=== PATIENT | male | born 1960 | race Caucasian/White ===

== ENCOUNTER 2016-11-06 05:46 | Observation (INO) ==
[2016-11-06] MEDS ORDERED: ASPIRIN PO STA (06:11)
--- NOTE | 2016-11-06 06:35 | Diag Imaging Result Doc PS360 ---
EXAM: CHEST-PORTABLE HISTORY: cp TECHNIQUE: Portable upright COMPARISON: 10/10/2016 FINDINGS: The lungs are well expanded. The heart is mildly prominent. The vessels are not distended. No pneumonia. No pleural effusions identified. Mild scoliosis. IMPRESSION: Mildly prominent heart, but otherwise negative exam. Electronically signed by Charbel Green 11/06/2016 6:33 AM
[2016-11-06 06:47] LABS: BASO% 0.3 % (0.0-0.8); EOS# 0.37 X1000 (0.0-0.7); EOS% 6.2 % (0.0-10.0); HEMATOCRIT 37.8 % (42.0-52.0); HEMOGLOBIN 12.9 g/dL (14.0-18.0); IMM GRAN# 0.02 X1000 (0.0-0.04); IMM GRAN% 0.3 % (0.0-0.5); LYMPH# 1.44 X1000 (1.2-3.4); LYMPH% 24.1 % (20.5-51.1); MANUAL DIFF NEEDED? NO; MCH 32.7 PG (27-31); MCHC 34.1 g/dL (33-37); MCV 95.9 FL (81-99); MONO# 0.65 X1000 (0.11-0.59); MONO% 10.9 % (1.7-9.3); MPV 11.2 FL (7.4-10.4); NEUT% 58.2 % (42.2-75.2); PLT 209 X1000 (130-400); RBC 3.94 XMIL (4.7-6.1)
[2016-11-06 06:48] LABS: INR 1.01; PROTIME 10.6 Seconds (9.2-11.7); PTT 24.5 Seconds (22.0-36.0)
[2016-11-06 07:16] LABS: AGAP 14; ALBUMIN 4.3 g/dL (3.5-5.0); ALKALINE PHOSPHATASE 51 U/L (32-122); BUN 14 mg/dL (8-22); CALCIUM 9.2 mg/dL (8.8-10.2); CHLORIDE 105 mmol/L (98-107); CK PROFILE 86 U/L (24-204); COSMO 286; GOT 23 U/L (10-34); GPT 18 U/L (10-44); MAGNESIUM 1.7 mg/dL (1.5-2.7); POTASSIUM 3.8 mmol/L (3.5-5.1); SODIUM 142 mmol/L (136-145); TCO2 23 mmol/L (25-35); TOTAL BILIRUBIN 0.26 mg/dL (0.20-1.00); TOTAL PROTEIN 7.3 g/dL (6.3-8.3)
[2016-11-06 07:38] LABS: URINE CULTURE NEEDED? NO; URINE MICRO REVIEW NEEDED? NO; URINE SOURCE CLEAN CATCH
[2016-11-06 07:55] LABS: BILIRUBIN URINE NEGATIVE (NEGATIVE); BLOOD URINE NEGATIVE (NEGATIVE); COLOR STRAW; GLUCOSE URINE NEGATIVE (NEGATIVE); LEUKOCYTES URINE NEGATIVE (NEGATIVE); NITRITE URINE NEGATIVE (NEGATIVE); PH URINE 6.5; PROTEIN URINE NEGATIVE (NEGATIVE); SP GRAVITY URINE 1.007; TURBIDITY URINE CLEAR (CLEAR); UROBILINOGEN URINE NORMAL (NORMAL)
[2016-11-06 07:57] LABS: UR EPITHELIAL CELLS <10 /HPF (<10); URINE BACTERIA NEGATIVE /HPF; URINE RBC <10 /HPF (<10); URINE WBC <10 /HPF (<10)
[2016-11-06 08:02] LABS: UR AMPHETAMINES QUAL NONE DETECTED (NONE DETECT); UR BARBITUATES QUAL NONE DETECTED (NONE DETECT); UR BENZODIAZEPIN QUAL PRESUMPTIVE POSITIVE (NONE DETECT); UR CANNABINOIDS QUAL PRESUMPTIVE POSITIVE (NONE DETECT); UR COCAINE QUAL NONE DETECTED (NONE DETECT); UR METHADONE QUAL NONE DETECTED (NONE DETECT); UR OPIATES QUAL NONE DETECTED (NONE DETECT); UR OXYCODONE QUAL NONE DETECTED (NONE DETECT); UR PCP QUAL NONE DETECTED (NONE DETECT)
[2016-11-06] MEDS ORDERED: NITROGLYCERIN TOP ONE (09:14)
--- NOTE | 2016-11-06 09:15 | PROVIDER DOCUMENTATION ---
This chart was entered by Carla Johnson Scribe, acting as scribe for Kyle Dill MD. HPI-Chest Pain - General Chief Complaint: Chest Pain Stated Complaint: CHEST PAIN Time Seen by Provider: 11/06/16 06:07 Source: patient Allergies/Adverse Reactions: Patient Allergies Allergy/AdvReac Type Severity Reaction Status Date / Time No Known Allergies Allergy Verified 11/06/16 08:52 Home Medications: Home Medication List Medication Instructions Recorded Confirmed Last Taken Type Carvedilol [Coreg] 6.25 mg PO BID 08/06/12 11/06/16 11/05/16 06:00 History Digoxin 125 mcg PO DAILY 08/06/12 11/06/16 11/05/16 06:00 History ENALApril [Vasotec] 10 mg PO DAILY 08/06/12 11/06/16 11/05/16 06:00 History Furosemide [Lasix] 40 mg PO DAILY 08/06/12 11/06/16 11/06/16 06:00 History Spironolactone 25 mg PO DAILY 10/05/14 11/06/16 11/06/16 06:00 History Nitroglycerin Sl [Nitroglycerin] 0.4 mg SL PRN PRN 06/06/15 10/10/16 09/03/16 History Chlordiazepoxide [Librium] 5 mg PO BID #10 capsule 10/10/15 10/10/16 10/30/16 Rx Doxycycline [Vibramycin] 100 mg PO DAILY 11/06/16 11/06/16 11/06/16 06:00 History Methylprednisolone [Medrol Dosepak] 4 mg PO DIRECTED 11/06/16 11/06/16 06:00 History Simvastatin 20 mg PO DAILY 11/06/16 11/06/16 11/05/16 06:00 History - History of Present Illness-CP Nature of Presenting Problem: Pt is a 56 year old male who came to the ED from assisted with a cc of chest pain starting this morning at 5:00. Pt reports he has a hx of cardiac problems. Denies n/v. Location: reports: central Chest Pain Radiation: reports: no radiation Quality of Pain: reports: sharp Severity in ED: moderate Onset/Duration: 1-3 hours ago Timing: still present Context/Activities at Onset: reports: none Modifying Factors: improves with: nothing Nitro Today/Relief: no nitro taken today Aspirin Treatment Today: no aspirin today Similar Symptoms Previously?: Yes Recently Seen Here or By Another Healthcare Provider: No Review of Systems - Adult - REVIEW OF SYSTEMS - ADULT Constitutional: denies: chills, fever Eyes: reports: no symptoms reported Ears, Nose, Mouth & Throat: denies: ear pain, throat swelling Cardiovascular: reports: chest pain. denies: heart murmur, orthopnea Respiratory: denies: cough, shortness of breath Gastrointestinal: denies: nausea, vomiting Genitourinary: reports: no symptoms reported Musculoskeletal: reports: no symptoms reported Integumentary: reports: no symptoms reported Neurological: reports: no symptoms reported Psychiatric: reports: no symptoms reported Endocrine: reports: no symptoms reported Hematologic/Lymphatic: reports: no symptoms reported Allergic/Immunologic: reports: no symptoms reported All Other Systems: Reviewed and Negative Past History - Adult - PAST MEDICAL HISTORY-ADULT Review of Records: reports: Old Records Reviewed, Nursing Assessment Review Major Childhood Illnesses: reports: denies history Cardiovascular: reports: CAD, CHF, HTN, hyperlipidemia Respiratory: reports: COPD Gastrointestinal: reports: pancreatitis Obstetrical/Gynecological: reports: denies history Genitourinary: reports: denies history Musculoskeletal: reports: arthritis, other fractures (pt reports old rib fx) Neurological: reports: denies history Psychiatric: reports: bipolar, other ([place] abuse) Endocrine/Immune: reports: denies history Other Conditions: reports: denies history - PRIOR SURGERIES/PROCEDURES Surgical/Procedure History: reports: orthopedic (extremity) (left ankle), other (jaw surgery) - PRIOR HOSPITALIZATIONS Prior Hospitalizations: reports: none - IMMUNIZATION STATUS Childhood Immunizations: See Nurse Assessment Flu Vaccine: See Nurse Assessment - FAMILY HISTORY Family History: reviewed, not pertinent Physical Exam-General - PHYSICAL EXAM-ADULT Initial Vital Signs Reviewed: Yes - CONSTITUTIONAL General Appearance: appears well, alert, no apparent distress - EYES Eyes: PERRL/EOMI, pink conjunctivae - HEAD, EARS, NOSE, MOUTH & THROAT HENMT: normocephalic/atraumatic, moist mucous membranes - NECK Neck: non-tender, full range of motion - RESPIRATORY Respiratory: chest non-tender, normal breath sounds - CARDIOVASCULAR Cardiovascular: normal peripheral pulses, regular rate, rhythm - GASTROINTESTINAL (ABDOMEN) Abdominal Exam: normal bowel sounds, non tender, soft - MUSCULOSKELETAL Back Exam: normal inspection, no CVA tenderness Extremity: non-tender - SKIN Integumentary: normal color, normal turgor - NEUROLOGIC Neurologic: grossly normal - PSYCHIATRIC Psych/Mental Status: normal mood/affect, normal thought content, normal thought process, oriented x 3 Progress - PLAN OF CARE/RESULTS Progress/Plan/Lab Results: Vital Signs - 8 hr 11/06/16 06:17 11/06/16 09:07 Temperature 98.8 F Pulse Rate 92 H 92 H Respiratory Rate 18 21 Blood Pressure 117/73 119/81 O2 Sat by Pulse Oximetry 97 99 Laboratory Results - last 24 hr 11/06/16 11/06/16 11/06/16 06:09 06:09 06:09 WBC 5.98 RBC 3.94 L Hgb 12.9 L Hct 37.8 L MCV 95.9 MCH 32.7 H MCHC 34.1 RDW Std Deviation 13.1 Plt Count 209 MPV 11.2 H Immature Gran % (Auto) 0.3 Neut % (Auto) 58.2 Lymph % (Auto) 24.1 Douglas % (Auto) 10.9 H Eos % (Auto) 6.2 Baso % (Auto) 0.3 Immature Gran # (Auto) 0.02 Neut # (Auto) 3.48 Lymph # (Auto) 1.44 Douglas # (Auto) 0.65 H Eos # (Auto) 0.37 Baso # (Auto) 0.02 PT INR PTT (Actin FS) D-Dimer 0.21 Sodium 142 Potassium 3.8 Chloride 105 Carbon Dioxide 23 L Anion Gap 14 BUN 14 Creatinine 0.7 Estimated GFR/1.73 m2 > 60 BUN/Creatinine Ratio 20 Glucose 137 H Calculated Osmolality 286 Calcium 9.2 Magnesium 1.7 Total Bilirubin 0.26 AST 23 ALT 18 Alkaline Phosphatase 51 Creatine Kinase 86 Troponin T [id number]-Xgfklroutgw Pept Total Protein 7.3 Albumin 4.3 Globulin 3.0 Albumin/Globulin Ratio 1.4 Urine Source Urine Color Urine Turbidity Urine pH Ur Specific [place] Urine Protein Ur Glucose (Stick) Ur Ketones (Stick) Urine Blood Urine Nitrite Urine Bilirubin Urobilinogen Dipstick Urine Leukocytes Urine WBC (Auto) Urine RBC (Auto) U Epithel Cells (Auto) Urine Bacteria (Auto) Urine Opiates Screen Ur Oxycodone Screen Ur Methadone, Qual Ur Barbiturates Screen Ur Phencyclidine Scrn Ur Amphetamines Screen U Benzodiazepines Scrn Urine Cocaine Screen U Cannabinoids Screen 11/06/16 11/06/16 11/06/16 06:09 06:09 06:09 WBC RBC Hgb Hct MCV MCH MCHC RDW Std Deviation Plt Count MPV Immature Gran % (Auto) Neut % (Auto) Lymph % (Auto) Douglas % (Auto) Eos % (Auto) Baso % (Auto) Immature Gran # (Auto) Neut # (Auto) Lymph # (Auto) Douglas # (Auto) Eos # (Auto) Baso # (Auto) PT 10.6 INR 1.01 PTT (Actin FS) 24.5 D-Dimer Sodium Potassium Chloride Carbon Dioxide Anion Gap BUN Creatinine Estimated GFR/1.73 m2 BUN/Creatinine Ratio Glucose Calculated Osmolality Calcium Magnesium Total Bilirubin AST ALT Alkaline Phosphatase Creatine Kinase Troponin T < 0.010 [id number]-Unryugyzaez Pept 5709 H Total Protein Albumin Globulin Albumin/Globulin Ratio Urine Source Urine Color Urine Turbidity Urine pH Ur Specific [place] Urine Protein Ur Glucose (Stick) Ur Ketones (Stick) Urine Blood Urine Nitrite Urine Bilirubin Urobilinogen Dipstick Urine Leukocytes Urine WBC (Auto) Urine RBC (Auto) U Epithel Cells (Auto) Urine Bacteria (Auto) Urine Opiates Screen Ur Oxycodone Screen Ur Methadone, Qual Ur Barbiturates Screen Ur Phencyclidine Scrn Ur Amphetamines Screen U Benzodiazepines Scrn Urine Cocaine Screen U Cannabinoids Screen 11/06/16 11/06/16 07:32 07:32 WBC RBC Hgb Hct MCV MCH MCHC RDW Std Deviation Plt Count MPV Immature Gran % (Auto) Neut % (Auto) Lymph % (Auto) Douglas % (Auto) Eos % (Auto) Baso % (Auto) Immature Gran # (Auto) Neut # (Auto) Lymph # (Auto) Douglas # (Auto) Eos # (Auto) Baso # (Auto) PT INR PTT (Actin FS) D-Dimer Sodium Potassium Chloride Carbon Dioxide Anion Gap BUN Creatinine Estimated GFR/1.73 m2 BUN/Creatinine Ratio Glucose Calculated Osmolality Calcium Magnesium Total Bilirubin AST ALT Alkaline Phosphatase Creatine Kinase Troponin T Dgl-G-Kgfsdcubbls Pept Total Protein Albumin Globulin Albumin/Globulin Ratio Urine Source CLEAN CATCH Urine Color STRAW Urine Turbidity CLEAR Urine pH 6.5 Ur Specific [place] 1.007 Urine Protein NEGATIVE Ur Glucose (Stick) NEGATIVE Ur Ketones (Stick) NEGATIVE Urine Blood NEGATIVE Urine Nitrite NEGATIVE Urine Bilirubin NEGATIVE Urobilinogen Dipstick NORMAL Urine Leukocytes NEGATIVE Urine WBC (Auto) <10 Urine RBC (Auto) <10 U Epithel Cells (Auto) <10 Urine Bacteria (Auto) NEGATIVE Urine Opiates Screen NONE DETECTED Ur Oxycodone Screen NONE DETECTED Ur Methadone, Qual NONE DETECTED Ur Barbiturates Screen NONE DETECTED Ur Phencyclidine Scrn NONE DETECTED Ur Amphetamines Screen NONE DETECTED U Benzodiazepines Scrn PRESUMPTIVE POSITIVE A Urine Cocaine Screen NONE DETECTED U Cannabinoids Screen PRESUMPTIVE POSITIVE A Orders Category Date Time Status Cardiac Monitoring DIRECTED Care 11/06/16 06:11 Active Oxygen Therapy- ED Nursing DIRECTED Care 11/06/16 06:11 Active Saline Loc NOW Care 11/06/16 06:11 Active CHEST-PORTABLE [RAD] Stat Exams 11/06/16 06:22 Completed CBC WITH ELECTRONIC DIFF [HEME] Stat Lab 11/06/16 06:09 Completed CK PROFILE [SP CHEM] Stat Lab 11/06/16 06:09 Completed CK PROFILE [SP CHEM] Stat Lab 11/06/16 08:40 Received COMPREHENSIVE METABOLIC PANEL [CHEM] Stat Lab 11/06/16 06:09 Completed D-DIMER [CHEM] Stat Lab 11/06/16 06:09 Completed MAGNESIUM [CHEM] Stat Lab 11/06/16 06:09 Completed PRO B-NATRIURETIC PEPTIDE Stat Lab 11/06/16 06:09 Completed PROTIME WITH INR [COAG] Stat Lab 11/06/16 06:09 Completed PTT [COAG] Stat Lab 11/06/16 06:09 Completed TROPONIN T Stat Lab 11/06/16 06:09 Completed TROPONIN T Stat Lab 11/06/16 08:40 Received URINALYSIS W/POSS RFLX CULT-1 [URINALYSIS] Stat Lab 11/06/16 07:32 Completed URINE DRUG SCREEN Stat Lab 11/06/16 07:32 Completed Aspirin Med 11/06/16 06:11 Discontinued 325 mg PO STAT STA Result Diagrams: 11/06/16 06:09 11/06/16 06:09 - REASSESSMENT Reassessment #1 Time Reassessed: 09:13 Status: unchanged (Pt still reports 6-7/10 pain. Will admit.) - EKG 1 Time of EKG reading by physician:: 05:52 (\) EKG Read and Signed by:: Kyle Dill EKG Interpretation (*Must complete 3 of following elements*): Abnormal Rate: 91 Rhythm: NSR QRS: LBB 2 Time of EKG reading by physician:: 08:33 EKG Read and Signed by:: Kyle Dill EKG Interpretation (*Must complete 3 of following elements*): Abnormal Rate: 91 (left ventricular hypertrophy w QRS wudebubg abd repolarization abnormality) Rhythm: NSR - CONSULTS/PCP/HOSPITALIST Notification #1 *Consult/PCP/Hospitalist*: Hospitalist Time Discussed: 09:14 Consult Disposition: Will see in ED, Admit Departure - Departure Date of Disposition Decision: 11/06/16 Time of Disposition Decision: 09:15 DIAGNOSIS: Chest pain, CHF (congestive heart failure) Disposition: ADMITTED INPATIENT 09 Certified Medical Emergency: Emergent Condition: Stable Referrals and Follow-Ups: None,PCP [Primary Care Provider] - - Critical Care Note This patient required my direct & personal management of CC.: No Attestation - Physician/ MARY Attestation Patient care was provided by Advanced Practice Provider:: No The physician spent face to face time with patient:: Yes Advanced Practice Provider documentation review:: Supervising physician onsite and consulted in the evaluation and care of this patient. The physician did have a face to face encounter with the patient. This chart was documented by the indicated scribe, (Carla Johnson Scribe) and accurately reflects the services I performed and decisions made by me, Kyle Dill MD, as attested by the provider's signature.
--- NOTE | 2016-11-06 10:17 | EKG Report ---
Test Performed on : 11/06/2016 08:33:06 AM Test Reason : ED. Not ordered in [place] Blood Pressure : / mmHG Vent. Rate : 091 BPM Atrial Rate : 091 BPM P-R Int : 170 ms QRS Dur : 170 ms QT Int : 448 ms P-R-T Axes : 050 026 147 degrees QTc Int : 551 ms Normal sinus rhythm. Left ventricular hypertrophy with QRS widening and repolarization abnormality Abnormal ECG When compared with ECG of 06-NOV-2016 05:52, (Unconfirmed) Left bundle branch block is no longer present Unconfirmed Result
--- NOTE | 2016-11-06 10:17 | EKG Report ---
Test Performed on : 11/06/2016 05:52:44 AM Test Reason : ED. Not ordered in [place] Blood Pressure : / mmHG Vent. Rate : 091 BPM Atrial Rate : 091 BPM P-R Int : 194 ms QRS Dur : 164 ms QT Int : 424 ms P-R-T Axes : 061 008 151 degrees QTc Int : 521 ms Normal sinus rhythm. Left bundle branch block Abnormal ECG When compared with ECG of 28-SEP-2015 06:52, QRS axis shifted right T wave amplitude has increased in Anterior leads Unconfirmed Result
[2016-11-06] MEDS ORDERED: ZOFRAN IV PRN (11:18)
[2016-11-06] MEDS: DUONEB (A & A) INH PRN ×3 (13:14→19:28)
[2016-11-06] MEDS: LOVENOX SUBQ SCH (13:26)
[2016-11-06] MEDS: TYLENOL PO PRN ×2 (13:28→21:43)
[2016-11-06] MEDS: ALDACTONE PO SCH (13:55)
[2016-11-06] MEDS: DOXYCYCLINE PO SCH (13:56)
[2016-11-06] MEDS: COREG PO SCH ×2 (13:56→21:43)
[2016-11-06] MEDS: LANOXIN PO SCH (13:57)
[2016-11-06] MEDS: LASIX PO SCH (13:58)
[2016-11-06] MEDS: PRILOSEC PO SCH (13:58)
[2016-11-06] MEDS: VASOTEC PO SCH (13:58)
[2016-11-06] MEDS: NITROGLYCERIN TOP SCH ×2 (17:01→21:44)
--- NOTE | 2016-11-06 17:48 | CONSULTATION ---
DATE OF CONSULTATION: 11/06/2016 INDICATION: Chest pain. HISTORY OF PRESENT ILLNESS: Mr. Colunga is a 56-year-old white male with a history of a nonischemic cardiomyopathy likely alcohol related who continues to drink and smoke. He presented for evaluation of chest pain. Patient is currently incarcerated and has been so for the last 13 days. He was apparently eating this morning and shortly after eating he began to experience a burning type chest discomfort with no radiation, no nausea, vomiting, diaphoresis. No worsening shortness of breath. He asked for some nitroglycerin. He was apparently administered an EKG in [facility] and they subsequently sent him to the ER for further evaluations. He has not had any recurrence of his chest discomfort since being here and his initial set of cardiac enzymes has been unremarkable. He reports compliance with his medications and reports they have been administered while he has been in [facility]. He has no other complaints. PAST MEDICAL HISTORY: Significant for. 1. Nonobstructive coronary disease by last cardiac catheterization. 2. Nonischemic cardiomyopathy. His last echocardiogram was in 2016 and showed a markedly reduced EF of 15-20. Moderate mitral regurgitation. 3. Alcoholism, continuing to drink 6+ beers per day. 4. Continued tobacco abuse. 5. Hypertension. 6. Hyperlipidemia. 7. History of nonsustained ventricular tachycardia. 8. COPD. 9. Chronic left bundle branch block. 10. Hyperlipidemia. SOCIAL HISTORY: Again continued alcohol abuse with 6+ beers per day. Continued tobacco abuse. FAMILY HISTORY: Significant for hypertension. REVIEW OF SYSTEMS: A 10 system review of systems is negative except for those things mentioned in HPI. PHYSICAL EXAMINATION: Vital signs: Patient is afebrile. Heart rate is 74, blood pressure 116/83. General: No acute distress. HEENT: Oropharynx is moist. Poor dentition. Eye examination shows pink conjunctivae. White sclerae. Neck: Examination shows no obvious thyromegaly, thyroid tenderness. Cardiovascular: He is in regular rate and rhythm. No murmurs. He has no lower extremity edema. He has no obvious S3. His JVP appears to be normal. Chest exam: Relatively clear to auscultation bilaterally. No increased work of breathing. Abdomen: Soft, nontender, nondistended. He has no obvious organomegaly. Skin Exam: Warm and dry throughout without any rashes. Neurological: Moving all extremities well. Cranial nerves 2-12 are intact without any sensation deficits. Psychiatric: Alert and oriented, pleasant, normal mood and affect. PERTINENT DATA: Chest x-ray shows a mildly prominent heart but otherwise an unremarkable examination. His EKG shows sinus rhythm, left bundle branch block. His laboratory data demonstrates white count of 5.98, hematocrit 37.8, platelet count of 209,000. His INR is 1.01, D- dimer is normal. Sodium 142, potassium 3.8, BUN 14, creatinine 0.7. His proBNP is 5709. His troponin is less than 0.010. ASSESSMENT: 1. Chest pain. 2. Systolic heart failure presumably controlled per patient's symptoms. PLAN: We will trend his cardiac enzymes overnight. His EKG is unremarkable from previous. If his enzymes remain normal then we will likely allow discharge in the morning with an expedited outpatient stress in the next 72 hours. cc: Dontrell Dickinson MD
--- NOTE | 2016-11-06 18:47 | ECHO REPORT ---
ORDER DATE: 11/06/2016 INDICATION: Chest pain, coronary disease, CHF, hypertension, hyperlipidemia. FINDINGS: 1. Right atrium is mildly enlarged at 4.6 cm. 2. Moderate tricuspid regurgitation. RV pressure of 67 suggesting pulmonary hypertension. 3. Right ventricle does appear to be somewhat enlarged with mild reduction in RV systolic function. 4. No significant pulmonic insufficiency. 5. Moderate to severe left atrial enlargement with dimension of 5.2 cm. 6. No mitral valve prolapse. Mild mitral regurgitation with apical tenting of the mitral leaflets. 7. Severe dilatation of the left ventricle with an end-diastolic dimension of 8.4. Normal wall thicknesses with a posterior and interventricular septal thickness of 0.5 cm each. Severely reduced LV systolic function with an estimated EF of 15% and global hypokinesis. 8. Aortic valve opens well, it is trileaflet. No evidence of stenosis or insufficiency. 9. Aorta appears normal on visualized segments. 10. No pericardial effusion seen. cc: Dontrell Dickinson MD
[2016-11-06] MEDS ORDERED: ZOCOR PO SCH (21:00)
[2016-11-06] MEDS ORDERED: HEPARIN SUBQ SCH (21:00)
[2016-11-06] MEDS: MORPHINE IV PRN (21:44)
[2016-11-07] MEDS: TYLENOL PO PRN ×2 (03:50→11:39)
[2016-11-07] MEDS: MORPHINE IV PRN (03:50)
[2016-11-07] MEDS: NITROGLYCERIN TOP SCH ×2 (03:51→10:16)
[2016-11-07 07:17] LABS: MANUAL DIFF NEEDED? NO
[2016-11-07 07:25] LABS: BASO% 1.1 % (0.0-0.8); EOS# 0.12 X1000 (0.0-0.7); EOS% 2.2 % (0.0-10.0); HEMATOCRIT 36.6 % (42.0-52.0); HEMOGLOBIN 12.4 g/dL (14.0-18.0); LYMPH# 1.98 X1000 (1.2-3.4); LYMPH% 35.5 % (20.5-51.1); MCH 32.8 PG (27-31); MCHC 33.9 g/dL (33-37); MCV 96.8 FL (81-99); MONO# 0.57 X1000 (0.11-0.59); MONO% 10.2 % (1.7-9.3); MPV 10.2 FL (7.4-10.4); PLT 255 X1000 (130-400); RBC 3.78 XMIL (4.7-6.1)
[2016-11-07 07:37] LABS: AGAP 12; BUN 13 mg/dL (8-22); CALCIUM 8.4 mg/dL (8.8-10.2); CHLORIDE 99 mmol/L (98-107); COSMO 271; DIGOXIN 0.7 ng/mL (0.9-2.0); HDL 39 mg/dL (35-55); LDL 58 mg/dL; POTASSIUM 3.5 mmol/L (3.5-5.1); SODIUM 136 mmol/L (136-145); TCO2 25 mmol/L (25-35); TRIGLYCERIDES 126 mg/dL (39-160); VLDL 25 mg/dL
[2016-11-07] MEDS: PRILOSEC PO SCH (07:50)
[2016-11-07] MEDS: DUONEB (A & A) INH PRN (08:08)
[2016-11-07] MEDS ORDERED: ASPIRIN PO SCH (09:00)
--- NOTE | 2016-11-07 09:58 | HISTORY AND PHYSICAL ---
PRIMARY CARE PHYSICIAN: None. BAKER HEAD: Dr. Urias. CHIEF COMPLAINT: Chest heaviness. HISTORY OF PRESENT ILLNESS: Mr. Colunga is a 56-year-old, male who carries a past medical history of chronic systolic heart failure with an EF of 15% back in August. Ischemic cardiomyopathy, COPD, hypertension, coronary artery disease, pulmonary hypertension, alcohol abuse, tobacco abuse, but he has not had in 13 days since being incarcerated, GERD, and recent either poison oak or poison mauro that he was put on doxycycline for while he has been incarcerated, various stages of healing on the bilateral upper extremities. He presented to the ED after stating he woke up around 4:30 a.m., went to the restroom and when he returned to his bed he "felt chest heaviness." His felt like it was pounding. There was some slight dizziness. There was no associated shortness of breath, no nausea, no vomiting , no diaphoresis. The only thing that made his pain better was lying completely still. He rated his chest pain 10/10, and after nitroglycerin 6/10, and after nitroglycerin without movement 0/ 10. Two sets of cardiac enzymes have been negative. Chest x-ray showed mildly prominent heart but otherwise negative exam. The first EKG showed normal sinus rhythm with left bundle branch block. The patient is being admitted to the Tele floor with a cardiology consult. PAST MEDICAL HISTORY: 1. Chronic systolic heart failure with an EF of 15%-20% in August,. 2. Ischemic cardiomyopathy. 3. COPD. 4. Hypertension. 5. Coronary artery disease. 6. Pulmonary hypertension. 7. Alcohol abuse. The patient states that he does drink beer; however, he has not had a drink in 13 days since being incarcerated. 8. Tobacco abuse. Patient has not been smoking since he has been incarcerated in 13 days. 9. GERD. PAST SURGICAL HISTORY: 1. ORIF of the right ulnar Jul, 2015. 2. Cholecystectomy. FAMILY HISTORY: Coronary artery disease in mother and father. SOCIAL HISTORY: The patient states that he still smokes, but he has cut back. He was smoking a pack of cigarettes per day. He still is drinking a 6 pack per day. Again, he has not smoked or drank in 13 days ago. He does smoke marijuana. His tox screen was positive for cannabis and benzodiazepines. The patient is living with 2 roommates; one who he says is a schizophrenic and 1 who is on hospice. ALLERGIES: No known drug allergies. HOME MEDICATIONS: 1. Coreg 6.25 mg p.o. b.i.d. 2. Librium 5 mg p.o. b.i.d. 3. Digoxin 25 mcg p.o. daily. 4. Doxycycline 100 mg p.o. daily. 5. Vasotec 10 mg p.o. daily. 6. Lasix 40 mg p.o. daily. 7. Medrol Dosepak. 8. Nitroglycerin 0.4 mg sublingual p.r.n. 9. Simvastatin 20 mg p.o. daily. 10. aldactone 25 mg p.o. daily. REVIEW OF SYSTEMS: Completely negative except for as mentioned in HPI. The patient denies any headache or fever, no dysuria, no hematuria. No bright red or dark tarry stools. LABORATORY DATA: White count 5, hemoglobin 12, hematocrit 37, platelet count 209. Chemistry sodium 142, potassium 3.8, BUN 14, creatinine 0.7 blood glucose was 137, magnesium was 1.7. Two sets of troponins were less than 0.010. ProBNP 57. Urinalysis was negative. Toxicology screen was positive for benzos and cannabis. Chest x-ray showed mildly prominent heart , vessels were not distended. No pneumonia no pleural effusions. Mild sclerosis. PHYSICAL EXAMINATION: VITAL SIGNS: Temperature 98.8 degrees, heart rate 92, respirations 21, blood pressure 119/81. O2 is 99% on room air. GENERAL: Mr. Colunga is a 56-year-old male sitting up in bed, in no acute distress. HEENT: Atraumatic, normocephalic. PERRLA. NECK: Supple. Trachea midline. CV: S1-S2 appreciated. The patient does have a very mild apical systolic murmur. PULMONARY: Bilateral breath sounds encapsulated. No rales, rhonchi or wheezes. Currently on room air. Good O2 saturations. GI: Was soft, nontender, nondistended. Positive bowel sounds 4 quads. EXTREMITIES: No pedal edema noted. 2+ pedal pulses. SKIN: Was warm. He did have on bilateral upper extremities various stages of healing rash, he said was either from poison oak or poison mauro. ASSESSMENT AND PLAN: 1. Chest pain rule out myocardial infarction. Two sets of cardiac enzymes have been negative. We will check a 3rd. Patient placed on nitropaste. Resume his home medications. We will do a cardiac consult. Recheck an echocardiogram. Repeat an EKG in the a.m., check a lipid profile. Check hemoglobin A1c. Healthy heart diet. Continue with aspirin daily. 2. Chronic systolic congestive heart failure. We will continue patient on his p.o. Lasix. His proBNP was slightly elevated. However he does not seem to be in acute heart failure. We will continue his p.o. Lasix. We will check a digoxin level, continue his spironolactone. Check an echo. 3. Poison oak versus poison mauro on bilateral upper extremity cellulitus. He states he was started on doxycycline while incarcerated. We will continue with that. He is in various stages of healing. 4. Chronic obstructive pulmonary disease not in exacerbation with the DuoNebs p.r.n. 5. Ischemic cardiomyopathy. Aware. 6. Hypertension. Continue beta vipin and RADHA. 7. Coronary artery disease. 8. Alcohol abuse. Patient has been without alcohol for 13 days since his incarceration. We will do daily abstinence education. 9. Tobacco abuse. The patient has been without cigarettes for 13 days. We will continue with daily smoking cessation. 10. Gastroesophageal reflux disease. Continue with Proton Pump inhibitors. 11. Deep venous thrombosis prophylaxis. We will continue with Lovenox. 12. Further recommendation to follow physician evaluation and diagnostic data. I have personally performed a face to face diagnostic evaluation on this patient , also I reviewed this patient lab work and, images and vital signs, this patient is coming from [facility], complaining of chest pain, we will get an stress test, cardiology will be on board, 2 sets of troponin negative, I don't think he has an acute coronary syndrme at this moment but based on his history we need to rule it out , Dr Yann Cooper Dictated by DANK Boyer for Yann Gordon MD cc: Yann Gordon MD [facility]
[2016-11-07] MEDS: LASIX PO SCH (10:16)
[2016-11-07] MEDS: COREG PO SCH (10:16)
[2016-11-07] MEDS: DOXYCYCLINE PO SCH (10:16)
[2016-11-07] MEDS: VASOTEC PO SCH (10:16)
[2016-11-07] MEDS: ALDACTONE PO SCH (10:16)
[2016-11-07] MEDS: LANOXIN PO SCH (10:17)
[2016-11-07] MEDS ORDERED: NORCO-5 PO PRN (10:49)
[2016-11-07 11:29] VITALS: BP 107/66
[2016-11-07] MEDS: LOVENOX SUBQ SCH (11:39)
--- NOTE | 2016-11-08 05:18 | DISCHARGE SUMMARY ---
ADMISSION DATE: 11/06/2016 DISCHARGE DATE: 11/07/2016 DISCHARGE DIAGNOSES: 1. Chest pain, myocardial infarction has been ruled out. 2. Chronic congestive heart failure, with an ejection fraction of 15%. 3. Poison oak versus poison mauro on bilateral upper extremities. 4. Chronic obstructive pulmonary disease, not in exacerbation. 5. Ischemic cardiomyopathy, aware. 6. Hypertension. 7. History of coronary artery disease. 8. Alcohol abuse. 9. Tobacco abuse. 10. Drug abuse, with a positive urine toxicology test, positive for cannabinoids and benzodiazepine. CONSULTATIONS: Dr. Dontrell Dickinson, Cardiology Department. HOSPITAL COURSE: A 56-year-old male with a past medical history of congestive heart failure, with an ejection fraction of 15%, ischemic cardiomyopathy, COPD, hypertension, coronary artery disease, alcohol abuse, tobacco abuse, drug abuse, GERD. Presented to the emergency department complaining of chest pain. He states that he felt some heaviness that started that day at 4:30 a.m. Also, he felt palpitations and dizziness. The symptoms were not associated with shortness of breath, nausea, vomiting, or diaphoresis. Intensity, as per the patient, 10 put of 10, and after nitroglycerin, 6/10. This patient was evaluated by Cardiology Department, who did an echocardiogram that showed an ejection fraction again of 15%, cardiac troponins were negative, and no big changes in the EKG. No changes. We will monitored this patient overnight, and today this patient was not complaining of any kind of symptoms. Lab work was stable, so this is why we decided to discharge this patient, with an active followup by Cardiology Department. This patient will have a cardiac a stress test done on Wednesday as an outpatient. All of his medications were adjusted by the Cardiology Department. At the moment of discharge, this patient was in stable medical condition, tolerating p.o., and ambulating. PHYSICAL EXAMINATION: Vital Signs: Temperature 97.4 degrees, pulse 86, respiratory rate 19, blood pressure 107/66, oxygen saturation 100% on room air. HEENT: Head normocephalic. No trauma. PERRLA. Neck: Supple. No JVD. No masses. Central trachea. Chest: Clear to auscultation. No wheezing. No rales. Cardiovascular: RRR. Systolic murmur. Abdomen: Soft, nontender, nondistended. No hepatosplenomegaly. Extremities: Trace lower extremity edema. No clubbing. No cyanosis. Neurological: The patient was alert and oriented x3. No focal deficits. LABORATORY STUDIES: WBC 5.5, hemoglobin 12.4, hematocrit 36.6, platelets 255,000. Sodium 136, potassium 3.5, chloride 99, bicarbonate 25, BUN 13, creatinine 0.7, glucose 83, calcium 8.4. Troponins negative x3. DISCHARGE MEDICATIONS: Nitroglycerin sublingual 0.4 mg sublingual p.r.n. pain, spironolactone 25 mg p.o. daily, simvastatin 20 mg p.o. daily, [place] 5 one tablet p.o. q.6 hours p.r.n. pain, furosemide 40 mg p.o. daily, enalapril 10 mg p.o. daily, doxycycline 100 mg p.o. b.i.d. for 5 days, digoxin 125 mcg p.o. daily, carvedilol 6.25 mg p.o. b.i.d., aspirin 325 mg p.o. daily, and acetaminophen 350 mg p.o. q.6 hours p.r.n. pain. TIME SPENT: Time discharging this patient: 35 minutes. cc: Yann Gordon MD
--- NOTE | 2016-11-09 07:19 | EKG Report ---
Test Performed on : 11/07/2016 07:01:11 AM Test Reason : follow up Blood Pressure : / mmHG Vent. Rate : 068 BPM Atrial Rate : 068 BPM P-R Int : 170 ms QRS Dur : 194 ms QT Int : 462 ms P-R-T Axes : 042 -18 136 degrees QTc Int : 491 ms Normal sinus rhythm. Left bundle branch block Abnormal ECG When compared with ECG of 06-NOV-2016 08:33, (Unconfirmed) No significant change was found Confirmed by Pako Dickinson DO ([id number]) on 11/09/2016 6:22:18 PM
== END 2016-11-07 11:41 | disposition home or self-care (01) ==
LOC: ED 05:46 → 3N 05:46
PROVIDERS: ATTEND Internal Medicine

== ENCOUNTER 2018-06-21 12:39 | Inpatient (IN) ==
[2018-06-21] MEDS ORDERED: ASPIRIN PO ONE (13:20)
[2018-06-21 13:36] LABS: BASO# 0.02 X1000 (0.0-0.2); BASO% 0.2 % (0.0-0.8); EOS# 0.02 X1000 (0.0-0.7); EOS% 0.2 % (0.0-10.0); HEMATOCRIT 36.7 % (42.0-52.0); HEMOGLOBIN 12.8 g/dL (14.0-18.0); IMM GRAN# 0.02 X1000 (0.0-0.04); IMM GRAN% 0.2 % (0.0-0.5); LYMPH# 1.12 X1000 (1.2-3.4); LYMPH% 10.9 % (20.5-51.1); MCHC 34.9 g/dL (33-37); MCV 97.6 FL (81-99); MONO# 0.96 X1000 (0.11-0.59); MONO% 9.3 % (1.7-9.3); MPV 10.4 FL (7.4-10.4); NEUT# 8.13 X1000 (1.4-6.5); NEUT% 79.2 % (42.2-75.2); PLT 207 X1000 (130-400); RBC 3.76 XMIL (4.7-6.1); RDW 13.2 % (11.5-14.5); WBC 10.27 X1000 (4.8-10.8)
[2018-06-21 14:00] LABS: AGAP 18; ALB/GLOB RATIO 1.8; ALBUMIN 4.2 g/dL (3.5-5.0); ALKALINE PHOSPHATASE 64 U/L (32-122); BUN 7 mg/dL (8-22); CALCIUM 9.4 mg/dL (8.8-10.2); CHLORIDE 100 mmol/L (98-107); CK PROFILE 65 U/L (24-204); COSMO 269; CREATININE 0.7 mg/dL (0.7-1.2); ESTIMATED GFR > 60; GLUCOSE 116 mg/dL (70-104); GOT 44 U/L (10-34); GPT 34 U/L (10-44); POTASSIUM 4.3 mmol/L (3.5-5.1); SODIUM 135 mmol/L (136-145); TCO2 17 mmol/L (25-35); TOTAL BILIRUBIN 0.88 mg/dL (0.20-1.00); TOTAL PROTEIN 6.6 g/dL (6.3-8.3)
[2018-06-21 14:09] LABS: INR 1.06; PROTIME 14.7 Seconds (11.0-16.0)
[2018-06-21 14:10] LABS: PTT 37.5 Seconds (22.3-41.8)
--- NOTE | 2018-06-21 14:30 | EKG Report ---
Test Performed on : 06/21/2018 12:56:46 PM Test Reason : SOB Blood Pressure : / mmHG Vent. Rate : 119 BPM Atrial Rate : 119 BPM P-R Int : 168 ms QRS Dur : 202 ms QT Int : 454 ms P-R-T Axes : 070 -07 099 degrees QTc Int : 638 ms Sinus tachycardia. with frequent premature ventricular complexes. Right atrial enlargement Left bundle branch block Abnormal ECG When compared with ECG of 02-DEC-2017 12:06, premature ventricular complexes. are now present Vent. rate has increased BY 52 BPM T wave inversion no longer evident in Inferior leads T wave inversion now evident in Anterior leads T wave inversion less evident in Lateral leads Unconfirmed Result
--- NOTE | 2018-06-21 14:59 | Diag Imaging Result Doc PS360 ---
CT ANGIOGRM PULMONARY ARTERIES - 06/21/2018 INDICATION: sob TECHNIQUE: Axial CT images were obtained after administering intravenous contrast. Coronal MIP images were generated. COMPARISON: 06/06/2015 FINDINGS: There is severe cardiomegaly with prominent dilation of the left ventricle. There is severe patient motion artifact. No definite pulmonary embolism. There are trace bilateral pleural effusions. There is some hazy interstitial pulmonary edema. Airways are fairly clear. Upper abdominal images are unremarkable. There is a displaced fracture through the surgical neck of the right shoulder. There are some old healed left-sided rib fractures similar to prior. IMPRESSION: 1. No definite pulmonary. 2. Dilated cardiomyopathy. Pulmonary edema. Trace pleural effusions. 3. Displaced fracture of the right shoulder surgical neck. This exam was performed using automated exposure control, adjustment of mA or kV according to patient size, and/or use of iterative reconstruction technique Electronically signed by Artie Lyon 06/21/2018 2:56 PM
--- NOTE | 2018-06-21 15:41 | PROVIDER DOCUMENTATION ---
This chart was entered by Any Gil Scribe, acting as scribe for Heath Alatorre MD. HPI-Chest Pain - General Chief Complaint: Shortness of Breath Stated Complaint: SOB, R ARM PAIN Time Seen by Provider: 06/21/18 13:12 Source: patient Allergies/Adverse Reactions: Patient Allergies Allergy/AdvReac Type Severity Reaction Status Date / Time No Known Allergies Allergy Verified 06/10/18 18:49 Home Medications: Home Medication List Medication Instructions Recorded Confirmed Last Taken Type Nitroglycerin Sl [Nitroglycerin] 0.4 mg SL PRN PRN 06/06/15 03/03/17 09/03/16 History Aspirin 325 mg PO DAILY #90 tablet 11/07/16 03/03/17 03/02/17 Rx Carvedilol [Coreg] 6.25 mg PO BID #60 tablet 11/07/16 03/03/17 03/03/17 Rx Digoxin 125 mcg PO DAILY #60 tablet 11/07/16 03/03/17 01/21/17 07:00 Rx ENALApril [Vasotec] 10 mg PO DAILY #30 tablet 11/07/16 03/03/17 03/03/17 Rx Furosemide [Lasix] 40 mg PO DAILY #30 tablet 11/07/16 03/03/17 03/03/17 Rx Spironolactone 25 mg PO DAILY #30 tablet 11/07/16 03/03/17 03/03/17 Rx Pantoprazole [Protonix] 40 mg PO DAILY@0700 #30 tablet 01/15/17 03/03/17 01/21/17 07:00 Rx Gabapentin [Neurontin] 100 mg PO TID #90 cap 01/24/17 03/03/17 02/24/17 Rx Hydrocodone/APAP 10 mg/325 mg 1 each PO Q6H PRN PRN #20 tablet 01/24/17 03/03/17 Unknown Rx [[place]-10] Multivit,Fe,Ca,FA & Min [Thera M 1 ea PO DAILY #120 tab 01/24/17 03/03/17 03/03/17 Rx Plus] Ondansetron [Zofran Odt] 4 mg PO 4XDAY PRN PRN #10 03/03/17 Unknown Rx tab.rapdis Sucralfate [Carafate] 1 gm PO AC + HS #120 tab 08/09/17 Unknown Rx Hydrocodone/APAP 7.5 mg/325 mg 1 ea PO Q6H PRN PRN #20 tab 06/10/18 Unknown Rx [[place]-7.5] Ibuprofen [Motrin] 600 mg PO Q6HR #30 tab 06/10/18 Unknown Rx - History of Present Illness-CP Nature of Presenting Problem: Patient is a 58 year old male who presents to the ED with left side chest pain and shortness of breath that started this morning. Patient fractured right humerus 2 weeks ago after having a fall. History of arrhythmia. Does not report diaphoresis or nausea. Location: reports: other (left side) Chest Pain Radiation: reports: no radiation Quality of Pain: reports: aching Severity in ED: mild Onset/Duration: this morning Timing: still present Context/Activities at Onset: reports: light activity Modifying Factors: improves with: nothing Associated Symptoms: reports: shortness of breath Similar Symptoms Previously?: No Recently Seen Here or By Another Healthcare Provider: No Review of Systems - Adult - REVIEW OF SYSTEMS - ADULT Constitutional: reports: no symptoms reported. denies: chills, fever, fatique Eyes: reports: no symptoms reported Ears, Nose, Mouth & Throat: reports: no symptoms reported Cardiovascular: reports: see HPI, chest pain. denies: heart murmur, palpitations Respiratory: reports: shortness of breath. denies: cough, wheezing Gastrointestinal: reports: no symptoms reported Genitourinary: reports: no symptoms reported Musculoskeletal: reports: other (right shoulder pain). denies: back pain, neck pain Integumentary: reports: no symptoms reported Neurological: reports: no symptoms reported Psychiatric: reports: no symptoms reported Endocrine: reports: no symptoms reported Hematologic/Lymphatic: reports: no symptoms reported Allergic/Immunologic: reports: no symptoms reported All Other Systems: Reviewed and Negative Past History - Adult - PAST MEDICAL HISTORY-ADULT Review of Records: reports: Nursing Assessment Review, Medications Reviewed, Social history reviewed & non-contributory. Major Childhood Illnesses: reports: denies history Cardiovascular: reports: arrhythmia, CAD, CHF, HTN, hyperlipidemia Respiratory: reports: COPD Gastrointestinal: reports: GERD, pancreatitis Obstetrical/Gynecological: reports: denies history Genitourinary: reports: denies history Musculoskeletal: reports: arthritis, other fractures (pt reports old rib fx) Neurological: reports: denies history Psychiatric: reports: bipolar, schizophrenia, other ([place] abuse) Endocrine/Immune: reports: denies history Other Conditions: reports: denies history - PRIOR SURGERIES/PROCEDURES Surgical/Procedure History: reports: cholecystectomy, orthopedic (extremity) (left ankle; L hand), other (jaw surgery) - PRIOR HOSPITALIZATIONS Prior Hospitalizations: reports: none - IMMUNIZATION STATUS Childhood Immunizations: See Nurse Assessment Flu Vaccine: See Nurse Assessment - FAMILY HISTORY Family History: reviewed, not pertinent - SOCIAL HISTORY Smoking: cigarettes, less than 1 pack/day Provider spent 3-5 mins advising pt. on dangers of tobacco.: Discussed manners to quit use, and f/u contacts for add'l counseling. Substance Use: alcohol Alcohol Use Frequency: every day Number of drinks per typical drinking period:: 5-10 drinks Physical Exam-General - PHYSICAL EXAM-ADULT Initial Vital Signs Reviewed: Yes - CONSTITUTIONAL General Appearance: alert, no apparent distress. negative: lethargic, slow to respond - HEAD, EARS, NOSE, MOUTH & THROAT HENMT: moist mucous membranes, dental decay. negative: hearing deficit - RESPIRATORY Respiratory: lungs clear, normal breath sounds, other (anterior chest wall tenderness). negative: rales, rhonchi - CARDIOVASCULAR Cardiovascular: normal peripheral pulses, regular rate, rhythm, systolic murmur. negative: tachycardia - MUSCULOSKELETAL Extremity: tenderness (right upper arm.), other (ecchymosis to right upper arm. limited ROM to right arm due to pain). negative: deformity, swelling - SKIN Integumentary: normal turgor, warm/dry, ecchymosis (right upper arm). negative: cyanosis, jaundice - PSYCHIATRIC Psych/Mental Status: normal mood/affect, oriented x 3. negative: paranoid, tearful - HEART Score HEART Score: History: Slightly Suspicious HEART Score: ECG: Non-Specific Repolarization Disturbance/LBBB/PM HEART Score: Age: 45-65 Years HEART Score: Risk Factors for Atherosclerotic Disease: 1 or 2 Risk Factors HEART Score: Troponin: < or = Normal Limit Total HEART Score:: 3 Progress - PLAN OF CARE/RESULTS Progress/Plan/Lab Results: Vital Signs - 8 hr 06/21/18 13:00 Temperature 97.7 F Pulse Rate 124 H Respiratory Rate 26 H Blood Pressure 124/81 O2 Sat by Pulse Oximetry 97 Laboratory Results - last 24 hr 06/21/18 06/21/18 06/21/18 13:20 13:20 13:20 WBC 10.27 RBC 3.76 L Hgb 12.8 L Hct 36.7 L MCV 97.6 MCH 34.0 H MCHC 34.9 RDW Std Deviation 13.2 Plt Count 207 MPV 10.4 Immature Gran % (Auto) 0.2 Neut % (Auto) 79.2 H Lymph % (Auto) 10.9 L [place] % (Auto) 9.3 Eos % (Auto) 0.2 Baso % (Auto) 0.2 Immature Gran # (Auto) 0.02 Neut # (Auto) 8.13 H Lymph # (Auto) 1.12 L [place] # (Auto) 0.96 H Eos # (Auto) 0.02 Baso # (Auto) 0.02 PT INR PTT (Actin FS) Sodium 135 L Potassium 4.3 Chloride 100 Carbon Dioxide 17 L Anion Gap 18 BUN 7 L Creatinine 0.7 Estimated GFR/1.73 m2 > 60 BUN/Creatinine Ratio 10 Glucose 116 H Calculated Osmolality 269 Calcium 9.4 Total Bilirubin 0.88 AST 44 H ALT 34 Alkaline Phosphatase 64 Creatine Kinase 65 Troponin T [id number]-Zcdkeijrpeu Pept 93365 H Total Protein 6.6 Albumin 4.2 Globulin 2.4 Albumin/Globulin Ratio 1.8 06/21/18 06/21/18 13:20 13:41 WBC RBC Hgb Hct MCV MCH MCHC RDW Std Deviation Plt Count MPV Immature Gran % (Auto) Neut % (Auto) Lymph % (Auto) [place] % (Auto) Eos % (Auto) Baso % (Auto) Immature Gran # (Auto) Neut # (Auto) Lymph # (Auto) [place] # (Auto) Eos # (Auto) Baso # (Auto) PT 14.7 INR 1.06 PTT (Actin FS) 37.5 Sodium Potassium Chloride Carbon Dioxide Anion Gap BUN Creatinine Estimated GFR/1.73 m2 BUN/Creatinine Ratio Glucose Calculated Osmolality Calcium Total Bilirubin AST ALT Alkaline Phosphatase Creatine Kinase Troponin T < 0.010 Mah-O-Anvttezcrvm Pept Total Protein Albumin Globulin Albumin/Globulin Ratio Orders Category Date Time Status Cardiac Monitoring DIRECTED Care 06/21/18 13:20 Active Oxygen Therapy- ED Nursing DIRECTED Care 06/21/18 13:20 Active Saline Loc NOW Care 06/21/18 13:[address] ANGIOGRM PULMONARY ARTERIES [CT] Stat Exams 06/21/18 13:14 Completed CBC WITH ELECTRONIC DIFF [HEME] Stat Lab 06/21/18 13:27 Ordered CK PROFILE [SP CHEM] Stat Lab 06/21/18 13:27 Ordered COMPREHENSIVE METABOLIC PANEL [CHEM] Stat Lab 06/21/18 13:27 Ordered PRO B-NATRIURETIC PEPTIDE Stat Lab 06/21/18 13:27 Ordered PROTIME WITH INR [COAG] Stat Lab 06/21/18 13:27 Ordered PTT [COAG] Stat Lab 06/21/18 13:27 Ordered TROPONIN T Stat Lab 06/21/18 13:27 Ordered Aspirin Med 06/21/18 13:20 Discontinued 325 mg PO NOW ONE CP/SOB/Palp >45 yrs of Age Stat Oth 06/21/18 13:20 Ordered EKG [EKG] Stat Ther 06/21/18 12:55 Draft Result Diagrams: 06/21/18 13:20 06/21/18 13:20 - EKG 1 Time of EKG reading by physician:: 12:56 EKG Read and Signed by:: Heath Alatorre EKG Interpretation (*Must complete 3 of following elements*): Abnormal Rate: 119 Rhythm: sinus tachycardia with frequent premature ventricular complexes QRS: LBB AL Interval: normal Comments: right atrial enlargement - CT/MRI 1 CT Study: Angiogram Impression: See EMR Report ( CT ANGIOGRM PULMONARY ARTERIES - 06/21/2018 INDICATION: sob TECHNIQUE: Axial CT images were obtained after administering intravenous contrast. Coronal MIP images were generated. COMPARISON: FINDINGS: There is severe cardiomegaly with prominent dilation of the left ventricle. There is severe patient motion artifact. No definite pulmonary embolism. There are trace bilateral pleural effusions. There is some hazy interstitial pulmonary edema. Airways are fairly clear. Upper abdominal images are unremarkable. There is a displaced fracture through the surgical neck of the right shoulder. There are some old healed left-sided rib fractures similar to prior. IMPRESSION: 1. No definite pulmonary. 2. Dilated cardiomyopathy. Pulmonary edema. Trace pleural effusions. 3. Displaced fracture of the right shoulder surgical neck. This exam was performed using automated exposure c ontrol, adjustment of mA or kV according to patient size, and/or use of iterative reconstruction technique Electronically signed by Artie Lyon 06/21/2018 2:56 PM 06/21/18 1456 Interpreting Physician: Artie Lyon MD Dictated Date/Time: 06/21/18 1453 cc: Heath Alatorre MD; Mariajose Jang MD) - CONSULTS/PCP/HOSPITALIST Notification #1 *Consult/PCP/Hospitalist*: Sadaf for hospitalist Time Discussed: 15:39 Consult Disposition: Will see in ED, Admit Departure - Departure Date of Disposition Decision: 06/21/18 Time of Disposition Decision: 15:40 DIAGNOSIS: CHF (congestive heart failure), Humerus fracture Disposition: ADMITTED INPATIENT 09 Certified Medical Emergency: Emergent Condition: Fair Referrals and Follow-Ups: Mariajose Jang MD [Primary Care Provider] - - Critical Care Note This patient required my direct & personal management of CC.: No Attestation - Physician/ MARY Attestation Patient care was provided by Advanced Practice Provider:: No The physician spent face to face time with patient:: Yes Advanced Practice Provider documentation review:: Supervising physician onsite and consulted in the evaluation and care of this patient. The physician did have a face to face encounter with the patient. This chart was documented by the indicated scribe, (Any Gil Scribe) and accurately reflects the services I performed and decisions made by me, Heath Alatorre MD, as attested by the provider's signature.
[2018-06-21] MEDS ORDERED: LASIX IV ONE (15:43)
--- NOTE | 2018-06-21 17:46 | ED EKG INTERP ---
This chart was entered by Any Gil Scribe, acting as scribe for Heath Alatorre MD. EKG Interpretation - EKG Time of EKG reading by physician:: 15:49 EKG Read and Signed by:: Heath Alatorre EKG Interpretation (*Must complete 3 of following elements*): Abnormal Rate: 49 Rhythm: sinus bradycardia [place] Interval: normal Comments: otherwise normal ECG Attestation - Physician/ MARY Attestation The physician spent face to face time with patient:: Yes Advanced Practice Provider documentation review:: Supervising physician onsite and consulted in the evaluation and care of this patient. The physician did have a face to face encounter with the patient. This chart was documented by the indicated scribe, (Any Gil Scribe) and accurately reflects the services I performed and decisions made by me, Heath Alatorre MD, as attested by the provider's signature.
--- NOTE | 2018-06-21 17:58 | HISTORY AND PHYSICAL ---
PRIMARY CARE PROVIDER: Mariajose Jang MD CHIEF COMPLAINT: Shortness of breath and left-sided chest pain. HISTORY OF PRESENT ILLNESS: Mr. Colunga is a 58-year-old male, who recently had a fall at his home on 06/10/2018 and suffered a fracture of his proximal humerus. He has been followed by Orthopedics. He stated up until then he has been in his usual state of health. However, this morning he had an acute onset of shortness of breath with chest pain on the left side that was nonradiating, associated with hot and cold flashes. Nothing made the pain worse or better. He denies any palpitations, nausea/vomiting, or diaphoresis. He did state that he has not had any alcohol in 2 days. He normally drinks 2 to 3 beers per day. He is feeling a little anxious. We will initiate him on the Librium taper protocol and watch him closely in [facility] for any DTs. 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 PAST MEDICAL HISTORY: 1. Nonischemic cardiomyopathy, presumed alcoholic. 2. Chronic alcohol dependence. 3. Systolic heart failure with a known EF of 15%. 4. Nicotine dependence. 5. Hypertension. 6. Hyperlipidemia. 7. History of nonsustained ventricular tachycardia. 8. Chronic left bundle branch block. 9. COPD. 10. Hyperlipidemia. 11. Recent fall with humerus fracture on the right foot. SURGICAL HISTORY: 1. Cholecystectomy. 2. Left hand and foot surgeries. 3. Jaw surgery. SOCIAL HISTORY: He smokes a pack a day. He drinks 2 to 3 beers per day; however, he has not had a drink in 2 days. Denies any illicit drug use. He is on disability secondary to heart failure and cardiomyopathy. FAMILY HISTORY: Reviewed and noncontributory. REVIEW OF SYSTEMS: A 14 point review of systems was complete and negative, except for those mentioned in HPI. HOME MEDICATIONS: Have not been reconciled. However, he states he does still take his blood pressure and diuretics every day. ALLERGIES: No known drug allergies. PHYSICAL EXAMINATION: VITAL SIGNS: Temperature was 97.7 degrees, heart rate 114, respirations 31, blood pressure 121/84, O2 is 94%. GENERAL: Mr. Colunga is an unkempt-appearing 58-year-old male. He is lying in the hospital bed in no acute distress. HEENT: Atraumatic, normocephalic. PERRL. NECK: Supple. Trachea midline. CARDIOVASCULAR: S1, S2 appreciated, loud systolic murmur. GASTROINTESTINAL: Soft, nontender, nondistended. Positive bowel sounds 4 quadrants. RESPIRATORY: Lung sounds fine crackles noted in the bases. LOWER EXTREMITIES: No edema. No clubbing or cyanosis. NEUROLOGIC: He is alert and oriented x4. Follows commands. Moves all extremities. However, he does not move his right extremity secondary to his recent humerus fracture. DIAGNOSTIC STUDIES: Pulmonary arteriogram showed no definite pulmonary dilated cardiomyopathy, pulmonary edema, trace pleural effusions. Displaced fracture of the right shoulder surgical neck. EKG: Sinus tachycardia with frequent PVCs, right atrial enlargement, left bundle branch block at 119 beats per minute. White count 10, hemoglobin 12, hematocrit 36, platelet count 207. Sodium 135, potassium 4.3, BUN 7, creatinine 0.7, blood glucose is 116, AST 44. ProBNP is 22,442. Troponin less than 0.010. ASSESSMENT AND PLAN: 1. Acute on chronic systolic congestive heart failure exacerbation. His echocardiogram back in 2016 showed an EF of 15%. We will repeat an echocardiogram. Continue on IV diuretics. Consult Cardiology. Continue his home medications when reconciled. 2. Dilated nonischemic cardiomyopathy, likely secondary to alcohol-induced cardiac toxicity. Aware. 3. Alcohol dependence. The patient drinks 2 to 3 beers per day. He has not had a drink in [address] him on a low-dose Librium taper per the protocol. Watch him closely for delirium tremens. 4. Recent right humerus fracture. Patient is in a sling. He had already been assessed by Orthopedics back in May. 5. Chest pain that was left-sided, nonradiating, associated with hot and cold spells. We will continue to trend his cardiac enzymes. They were negative. Repeat echocardiogram await Cardiology's input. 6. Chronic obstructive pulmonary disease (COPD) without exacerbation. 7. Hypertension. We will continue home medications when reconciled. 8. Hyperlipidemia. We will continue his statin. Further recommendations to follow physician evaluation and laboratory and diagnostic data. Dictated by DANK Boyer for Steve Shannon MD cc: MD Mariajose Pate
[2018-06-21] MEDS ORDERED: BENTYL PO PRN (18:10)
[2018-06-21] MEDS ORDERED: M.V.I.-12 10 ML, FOLIC ACID 1 MG, MAGNESIUM SULFATE 1 GM, THIAMINE 100 MG in NS 1,000 ML IV ONE (18:10)
[2018-06-21] MEDS ORDERED: ATARAX PO PRN (18:10)
[2018-06-21] MEDS ORDERED: MORPHINE IV ONE (18:50)
[2018-06-21] MEDS ORDERED: ZOFRAN IV ONE (18:51)
[2018-06-21] MEDS ORDERED: COREG PO ONE (18:58)
[2018-06-21] MEDS ORDERED: ALDACTONE PO ONE (18:59)
--- NOTE | 2018-06-21 19:13 | Diag Imaging Result Doc PS360 ---
EXAM: CHEST-PORTABLE INDICATION: chf TECHNIQUE: One view COMPARISON: 08/08/2017 FINDINGS: The lungs are grossly clear. There is no discrete pleural fluid collection or pneumothorax. The central vasculature appears mildly prominent suggesting mild pulmonary venous congestion. There is mild cardiomegaly that is stable. IMPRESSION: Cardiomegaly and pulmonary venous congestion. Electronically signed by Han Kumar 06/21/2018 7:10 PM
--- NOTE | 2018-06-21 19:33 | HISTORY AND PHYSICAL ---
ADDENDUM: He presented this morning to the ER because of shortness of breath and some left-sided chest discomfort. Mr. 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 Follows up regularly with Dr. Doctor Urias; however, he says he has not seen Dr. Urias for the past year, but he continues to be taking his medications. He has been having dyspnea on exertion and orthopnea, so he presented to the emergency department where he was evaluated. Initial CTA of the lungs has ruled out any PE, but there is dilated cardiomyopathy. There is pulmonary edema and trace pulmonary effusion. There is also a displaced fracture of the right shoulder surgical neck. The patient is being admitted for further medical evaluation. PHYSICAL EXAMINATION: LUNGS: Specifically, the lung air entry is bilaterally reduced. There are crepitations in both lung gonzalez. CARDIOVASCULAR: Tachycardic. There is a 3/6 TR murmur, and there is also possible 2/6 AR murmur. EXTREMITIES: No pedal edema. MEDICAL SUPERVISOR: Patient is awake, alert, and oriented. I have reviewed the CTA of the lungs. I also reviewed his chest x-ray which only shows cardiomegaly with some pulmonary infiltrates. No obvious consolidation. An EKG shows a wide complex tachycardia which seems to be fairly regular. ASSESSMENT: 1. Dyspnea on exertion, likely due to congestive heart failure exacerbation. 2. Severe dilated nonischemic cardiomyopathy. 3. Alcohol abuse with alcohol induced cardiomyopathy. 4. Recent right shoulder fracture. 5. Alcohol dependence. 6. Wide complex tachycardia, unsure if this is sinus origin with intraventricular conduction defect, or is a ventricular tachycardia. PLAN: 1. We are going to admit Mr. Colunga to the [facility]. 2. We will restart his home medications. 3. Continue with management for possible alcohol withdrawal. 4. Get an echocardiogram tomorrow. 5. We will also give him a one time dose of 4 mg morphine for adequate pain control of the right humerus fracture. 6. We will start the patient back on her beta vipin. 7. We will get all the other possible stress tests under control, including pain. 8. Repeat his EKG and follow up accordingly. 9. We will consult Cardiology. cc: Steve Shannon MD
[2018-06-21] MEDS: LIBRIUM PO SCH (20:26)
[2018-06-21] MEDS: COREG PO SCH (20:31)
[2018-06-21] MEDS: LASIX IV SCH (21:12)
[2018-06-22] MEDS: NORCO-10 PO PRN ×4 (00:58→23:00)
[2018-06-22] MEDS: LIBRIUM PO SCH ×4 (02:12→22:59)
[2018-06-22 05:42] LABS: BASO# 0.02 X1000 (0.0-0.2); BASO% 0.3 % (0.0-0.8); EOS# 0.08 X1000 (0.0-0.7); EOS% 1.2 % (0.0-10.0); HEMATOCRIT 34.9 % (42.0-52.0); HEMOGLOBIN 11.9 g/dL (14.0-18.0); LYMPH# 1.51 X1000 (1.2-3.4); LYMPH% 22.6 % (20.5-51.1); MCHC 34.1 g/dL (33-37); MCV 99.7 FL (81-99); MONO# 0.76 X1000 (0.11-0.59); MONO% 11.4 % (1.7-9.3); MPV 10.1 FL (7.4-10.4); NEUT# 4.31 X1000 (1.4-6.5); NEUT% 64.5 % (42.2-75.2); PLT 191 X1000 (130-400); RDW 13.4 % (11.5-14.5); WBC 6.68 X1000 (4.8-10.8)
[2018-06-22 06:17] LABS: AGAP 11; BUN 9 mg/dL (8-22); CALCIUM 8.8 mg/dL (8.8-10.2); CHLORIDE 98 mmol/L (98-107); COSMO 271; CREATININE 0.8 mg/dL (0.7-1.2); ESTIMATED GFR > 60; GLUCOSE 101 mg/dL (70-104); MAGNESIUM 1.9 mg/dL (1.5-2.7); PHOSPHORUS 4.1 mg/dL (2.7-4.5); POTASSIUM 3.8 mmol/L (3.5-5.1); SODIUM 136 mmol/L (136-145); TCO2 27 mmol/L (25-35)
[2018-06-22 06:23] LABS: T4 4.74 ug/dL (4.60-12.00); TSH 0.74 uIUmL (0.27-4.20)
--- NOTE | 2018-06-22 07:49 | EKG Report ---
Test Performed on : 06/22/2018 07:33:20 AM Test Reason : Heart Failure Admission Blood Pressure : / mmHG Vent. Rate : 099 BPM Atrial Rate : 198 BPM P-R Int : 000 ms QRS Dur : 170 ms QT Int : 440 ms P-R-T Axes : 054 025 208 degrees QTc Int : 564 ms Atrial flutter. with 2:1 AV conduction. Left bundle branch block Abnormal ECG When compared with ECG of 21-JUN-2018 12:56, (Unconfirmed) Atrial flutter. has replaced Sinus rhythm. QRS duration has decreased T wave inversion now evident in Inferior leads Unconfirmed Result
[2018-06-22] MEDS: LANOXIN PO SCH (09:30)
[2018-06-22] MEDS: THERA M PLUS PO SCH (09:30)
[2018-06-22] MEDS: ALDACTONE PO SCH (09:30)
[2018-06-22] MEDS: COREG PO SCH ×2 (09:31→23:00)
[2018-06-22] MEDS: LASIX IV SCH ×2 (09:31→22:59)
--- NOTE | 2018-06-22 15:01 | PROGRESS NOTE ---
DATE: 06/22/2018 SUBJECTIVE: The patient is resting comfortably in bed. He states that his chest pain has improved, as well as his shortness of breath. He denies any other complaints at this time. OBJECTIVE: Vital Signs: Temperature 98.6 degrees, blood pressure 108/74, heart rate 106, respirations 18, O2 saturation is 98% on 2 L nasal cannula. General: This is a chronically ill- appearing, elderly male sitting up in bed, in no acute distress. Head: Normocephalic and atraumatic. Heart: S1, S2 normal. Regular rate and rhythm. Lungs: Equal air entry bilaterally. No wheezing. No rales. No rhonchi. Abdomen: Positive bowel sounds. Soft, nontender, nondistended. Extremities: No edema. No cyanosis. Neurologic: The patient is alert and oriented x3. Labs: Reviewed. ASSESSMENT AND PLAN: 1. Acute congestive heart failure exacerbation. The patient is currently on diuretic therapy. Further management as per the cable television technician. 2. Severe dilated nonischemic cardiomyopathy. Aware. 3. Alcohol dependence. The patient is on Librium. We will monitor closely for withdrawal. 4. Recent right shoulder fracture. We will discuss with the patient about who he is seeing as outpatient for this fracture. 5. Hypertension. Continue on Coreg. cc: Jeanette Strong MD MTDD
--- NOTE | 2018-06-22 15:31 | CONSULTATION ---
DATE OF CONSULTATION: 06/22/2018 IMPRESSION: 1. Xxejh-[id number]-[id number] systolic heart failure. 2. Chronic obstructive pulmonary disease exacerbation. 3. Chest pain atypical for myocardial ischemia. The patient had previous coronary angiography, which demonstrated no significant coronary artery disease in 2011. 4. Severe dilated cardiomyopathy with left ventricular ejection fraction of 15%. 5. Left bundle branch block. 6. Paroxysmal atrial arrhythmias. Patient currently in sinus rhythm. 7. Significant chronic ongoing alcohol abuse. 8. Chronic cigarette use. 9. Hypertension. 10.Hyperlipidemia. RECOMMENDATIONS: 1. Diurese with intravenous Lasix. 2. Continue carvedilol, daily aspirin, enalapril, and digoxin. 3. Patient counseled regarding dire need for smoking cessation and discontinue alcohol abuse. HISTORY: This is a 58-year-old white male with past history of severe dilated cardiomyopathy probably related to chronic alcohol abuse, no significant coronary artery disease on previous cardiac catheterization in 2011, left bundle branch block, COPD, paroxysmal atrial arrhythmias, chronic ongoing healthy alcohol abuse, chronic smoking, hypertension, and hyperlipidemia, was admitted through the emergency room after he presented with several day history of increasing shortness of breath. He had some associated chest tightness with this as well, which was not severe. He is found to have evidence of congestive heart failure and for this reason Cardiology was consulted. Unfortunately, he continues to drink unspecified amount of beer daily and is rather vague as to the quantity. He smokes a pack of cigarettes daily as well. PAST MEDICAL HISTORY: 1. Severe dilated nonischemic cardiomyopathy related to alcohol. 2. Minimal coronary artery disease by previous coronary angiography in 2011. 3. Left bundle branch block. 4. Paroxysmal atrial arrhythmias. 5. COPD. 6. Hypertension. 7. Hyperlipidemia. 8. Chronic ongoing significant alcohol abuse. 9. Right foot fracture. 10.Cholecystectomy. 11.Unspecified left hand and foot surgery. 12.Unspecified jaw surgery. ALLERGIES: He has no known drug allergies. MEDICATIONS PRIOR TO ADMISSION: As listed. SOCIAL HISTORY: He is disabled and lives in [place] by himself. He smokes 1 pack of cigarettes per day. He is rather vague as to his beer consumption but drinks at least 4 beers daily. FAMILY HISTORY: Noncontributory. REVIEW OF SYSTEMS: Pulmonary: Noteworthy for progressive dyspnea. He has had some cough as well. Gastrointestinal: Noncontributory. Constitutional: Noncontributory. Remainder of review of systems negative/noncontributory of 14 total systems reviewed. PHYSICAL EXAMINATION: General: Middle aged white male, who appears somewhat disheveled, in nod distress on supplemental oxygen per nasal cannula. Vital signs: Blood pressure 104/76, heart rate 105, oxygen saturation 91%. HEENT: Extraocular movements appear intact. Mucous membranes are moist. Neck: Supple. Jugular venous distention is evident suggesting elevated central venous pressure. Chest: Auscultation of the chest reveals diminished breath sounds diffusely. Cardiac Exam: Reveals a regular tachycardia without appreciable murmur or gallop. Abdomen: Soft, nontender. Bowel sounds are normal. Extremities: Without edema. Neurologic Exam: Reveals him to be alert and responsive. Speech is fluent. He moves all 4 extremities equally well. Skin: Warm and dry. Psychiatric Exam: Reveals his mood to be appropriate. A 12-lead EKG demonstrates sinus tachycardia and left bundle branch block. Chest x-ray demonstrates cardiomegaly and no acute pulmonary infiltrates. LABORATORY DATA: Includes a white blood cell count of 6.68, hematocrit 34.9, hemoglobin 11.9, platelet count 191. Sodium 136, potassium 3.8, chloride 98, carbon dioxide 27, BUN 9, creatinine 0.8, glucose 101. Pro B-natriuretic peptid level 26,607. Initial troponin T 0.021, followup troponin T 0.039. Initial CPK 50, followup CPK 49. Albumin 4.2. cc: Ralph Lopez MD
[2018-06-23] MEDS: LIBRIUM PO SCH ×3 (03:56→22:24)
--- NOTE | 2018-06-23 07:30 | EKG Report ---
Test Performed on : 06/23/2018 07:24:12 AM Test Reason : tachycardia Blood Pressure : / mmHG Vent. Rate : 085 BPM Atrial Rate : 085 BPM P-R Int : 186 ms QRS Dur : 226 ms QT Int : 470 ms P-R-T Axes : 056 012 125 degrees QTc Int : 559 ms Normal sinus rhythm. Possible Left atrial enlargement Left bundle branch block Abnormal ECG When compared with ECG of 22-JUN-2018 07:33, Sinus rhythm. has replaced Atrial flutter. QRS duration has increased T wave inversion no longer evident in Inferior leads Confirmed by Guicho STOREY, Damian ([id number]) on 06/23/2018 8:55:23 AM
[2018-06-23 07:53] LABS: HEMATOCRIT 34.6 % (42.0-52.0); HEMOGLOBIN 11.9 g/dL (14.0-18.0); MCHC 34.4 g/dL (33-37); MCV 98.9 FL (81-99); RBC 3.5 XMIL (4.7-6.1); RDW 12.9 % (11.5-14.5); WBC 5.11 X1000 (4.8-10.8)
[2018-06-23 08:32] LABS: AGAP 13; BUN 11 mg/dL (8-22); CALCIUM 8.9 mg/dL (8.8-10.2); CHLORIDE 93 mmol/L (98-107); COSMO 269; CREATININE 0.8 mg/dL (0.7-1.2); ESTIMATED GFR > 60; GLUCOSE 118 mg/dL (70-104); MAGNESIUM 1.4 mg/dL (1.5-2.7); POTASSIUM 2.9 mmol/L (3.5-5.1); SODIUM 134 mmol/L (136-145); TCO2 28 mmol/L (25-35)
[2018-06-23] MEDS ORDERED: MAGNESIUM SULFATE 2 GM/S.W.I. 2 GM/50 ML IVPB IV ONE (08:37)
[2018-06-23] MEDS ORDERED: KLOR-CON PO ONE (08:37)
[2018-06-23] MEDS: THERA M PLUS PO SCH (08:47)
[2018-06-23] MEDS: LANOXIN PO SCH (08:47)
[2018-06-23] MEDS: COREG PO SCH ×2 (08:48→22:22)
[2018-06-23] MEDS: ALDACTONE PO SCH (08:48)
[2018-06-23] MEDS: LASIX IV SCH ×2 (08:48→22:24)
[2018-06-23] MEDS: NORCO-10 PO PRN ×3 (09:02→22:22)
--- NOTE | 2018-06-23 13:23 | ECHO REPORT ---
ORDER DATE: 06/22/2018 INTERPRETING PHYSICIAN: Dr. Urias CLINICAL INDICATIONS: CHF. M-MODE MEASUREMENTS: Left ventricle end diastole: 8.6 cm. Left ventricle end systole: 8.2 cm. Posterior wall: 0.8 cm. Interventricular septum: 0.8 cm. Left atrium: 4.0 cm. Aortic root: 2.9 cm. SUMMARY OF 2-DIMENSIONAL IMAGIN. The left ventricle is massively dilated. The global left ventricular systolic function visually appears to be in the order of 15%. There is akinesis of the mid to apical, anteroseptal, and septal segment of the left ventricle as well as the mid to apical anterior wall. All the other segments show severe impairment of contractility. 2. Aortic valve opens normally. Color flow mapping shows no regurgitation. 3. The patient is in low cardiac output state. 4. The right-sided chambers are also dilated. 5. The right ventricle shows better contractility than the left. 6. The tricuspid valve shows moderate degree of regurgitation with pulmonary pressure estimated at 73 mmHg. 7. The pulmonic valve was normal. 8. The mitral valve shows a omne-fz-pcxnnphc degree of regurgitation. 9. Diastolic function cannot be properly evaluated here. 10.The mitral inflow signal shows fusion of the E and A wave. 11.The patient probably has significant diastolic dysfunction. 12.The tissue Doppler of septal and lateral mitral annulus shows markedly impaired signal. SUMMARY: The study shows: 1. Markedly dilated left ventricle with severely impaired systolic function, ejection fraction of 15%. 2. Dilated atria. 3. Umzjedvd-ju-rqqhpx pulmonary hypertension estimated at 73 mmHg. Clinical correlation is recommended. cc: Yovanny Urias MD
--- NOTE | 2018-06-23 14:34 | PROGRESS NOTE ---
DATE: 06/23/2018 SUBJECTIVE: The patient is resting comfortably in bed. He has no complaints at this time. No acute events noted overnight. OBJECTIVE: Vital Signs: Temperature 98.1 degrees, blood pressure 100/73, heart rate 90, respirations 18, O2 saturation is 100% on room air. General: This is an elderly male lying in bed, in no acute distress. Heart: S1, S2 normal. Regular rate and rhythm. Lungs: Equal air entry bilaterally. No crackles. No rales. Abdomen: Positive bowel sounds. Soft, nontender, nondistended. Extremities: No edema. No cyanosis. Neurologic: The patient is alert and oriented x3. Labs: Hemoglobin 11, hematocrit 34, platelets 198,000. Sodium 134, potassium 2.9, chloride 93, CO2 28, magnesium 1.4. ASSESSMENT AND PLAN: 1. Acute on chronic systolic congestive heart failure exacerbation. The patient is currently on diuretic therapy. We will continue on the current cardiac medications. Cardiology is following. 2. Alcohol dependence. Continue on Librium. 3. Severe dilated cardiomyopathy. Aware. 4. Chronic obstructive pulmonary disease. Continue with bronchodilator therapy. 5. Deep venous thrombosis prophylaxis. We will start the patient on Lovenox. cc: Jeanette Strong MD MTDD
[2018-06-23] MEDS: LOVENOX SUBQ SCH (16:33)
[2018-06-24] MEDS: LIBRIUM PO SCH ×2 (04:52→20:14)
--- NOTE | 2018-06-24 06:52 | Diag Imaging Result Doc PS360 ---
EXAM: CHEST-PORTABLE HISTORY: dyspnea TECHNIQUE: Portable chest single view COMPARISON: 06/21/2018 FINDINGS: The lungs are well expanded. The heart is enlarged. The vessels are mildly distended. There are no infiltrates. No effusion identified. Questionable nodule in the mid left lung. IMPRESSION: No definite improvement. Electronically signed by Charbel Green 06/24/2018 6:49 AM
--- NOTE | 2018-06-24 07:31 | EKG Report ---
Test Performed on : 06/24/2018 06:45:48 AM Test Reason : tachycardia Blood Pressure : / mmHG Vent. Rate : 077 BPM Atrial Rate : 077 BPM P-R Int : 178 ms QRS Dur : 212 ms QT Int : 476 ms P-R-T Axes : 062 016 130 degrees QTc Int : 538 ms Normal sinus rhythm. Possible Left atrial enlargement Left bundle branch block Abnormal ECG When compared with ECG of 23-JUN-2018 07:24, No significant change was found Confirmed by Guicho STOREY, Damian ([id number]) on 06/24/2018 1:03:44 PM
[2018-06-24 07:47] LABS: BASO# 0.03 X1000 (0.0-0.2); BASO% 0.8 % (0.0-0.8); EOS# 0.18 X1000 (0.0-0.7); EOS% 4.6 % (0.0-10.0); HEMOGLOBIN 12.4 g/dL (14.0-18.0); LYMPH# 1.16 X1000 (1.2-3.4); LYMPH% 29.7 % (20.5-51.1); MCH 33.6 PG (27-31); MCHC 34.4 g/dL (33-37); MCV 97.6 FL (81-99); MONO# 0.57 X1000 (0.11-0.59); MONO% 14.6 % (1.7-9.3); MPV 10.4 FL (7.4-10.4); NEUT# 1.96 X1000 (1.4-6.5); NEUT% 50.3 % (42.2-75.2); PLT 231 X1000 (130-400); RBC 3.69 XMIL (4.7-6.1); RDW 12.7 % (11.5-14.5)
[2018-06-24 08:17] LABS: MAGNESIUM 1.6 mg/dL (1.5-2.7); PHOSPHORUS 4.1 mg/dL (2.7-4.5)
[2018-06-24] MEDS: ALDACTONE PO SCH (08:17)
[2018-06-24] MEDS: THERA M PLUS PO SCH (08:17)
[2018-06-24] MEDS: COREG PO SCH (08:18)
[2018-06-24] MEDS: LANOXIN PO SCH (08:18)
[2018-06-24] MEDS: NORCO-10 PO PRN ×2 (08:19→20:15)
[2018-06-24] MEDS: LASIX IV SCH ×2 (08:20→20:13)
[2018-06-24] MEDS ORDERED: MAGNESIUM SULFATE 2 GM/S.W.I. 2 GM/50 ML IVPB IV ONE (08:29)
[2018-06-24 10:04] LABS: AGAP 18; ALB/GLOB RATIO 1.1; ALBUMIN 3.5 g/dL (3.5-5.0); ALKALINE PHOSPHATASE 59 U/L (32-122); BUN 13 mg/dL (8-22); CALCIUM 9.1 mg/dL (8.8-10.2); CHLORIDE 96 mmol/L (98-107); COSMO 276; CREATININE 0.7 mg/dL (0.7-1.2); ESTIMATED GFR > 60; GLUCOSE 98 mg/dL (70-104); GOT 24 U/L (10-34); GPT 28 U/L (10-44); POTASSIUM 3.4 mmol/L (3.5-5.1); SODIUM 138 mmol/L (136-145); TCO2 24 mmol/L (25-35); TOTAL BILIRUBIN 0.54 mg/dL (0.20-1.00); TOTAL PROTEIN 6.6 g/dL (6.3-8.3)
--- NOTE | 2018-06-24 13:13 | PROGRESS NOTE ---
DATE: 06/24/2018 SUBJECTIVE: The patient is resting comfortably in bed. No acute events noted overnight. OBJECTIVE: Vital Signs: Temperature 97.7 degrees, blood pressure 98/66, heart rate 75, respirations 14, and O2 saturation 99% on 1 L nasal cannula. General: This is a chronically ill- appearing elderly male lying in bed in no acute distress. Heart: S1, S2 normal. Regular rate and rhythm. Lungs: Equal air entry bilaterally. No crackles. No rales. Abdomen: Positive bowel sounds. Soft, nontender, and nondistended. Extremities: No edema. No cyanosis. No calf tenderness. Neurologic: The patient is alert and oriented x3. LABORATORY: White blood cell count 3.9, hemoglobin 12, hematocrit 36, and platelets 231,000. Sodium 138, potassium 3.4, chloride 96, CO2 24, BUN 13, creatinine 0.7, glucose 98, and magnesium 1.6. ASSESSMENT AND PLAN: 1. Acute on chronic systolic congestive heart failure exacerbation. Continue with diuretic therapy. Cardiology is following. 2. Alcohol dependence. Continue on Librium. 3. Fracture of the proximal humerus. We will consult Orthopedic Surgery. 4. Severe dilated cardiomyopathy. Aware. 5. Chronic obstructive pulmonary disease. Continue with bronchodilator therapy and supplemental oxygen. 6. Deep vein thrombosis prophylaxis. Continue on Lovenox. cc: Jeanette Strong MD MTDD
[2018-06-24] MEDS ORDERED: KLOR-CON PO ONE (13:27)
[2018-06-24] MEDS: LOVENOX SUBQ SCH (16:21)
--- NOTE | 2018-06-24 16:23 | PROGRESS NOTE ---
DATE: 06/24/2018 SUBJECTIVE: Patient denies shortness of breath or chest discomfort on room air. OBJECTIVE: Blood pressure 93/67, heart rate 76, oxygen saturation 98% on room air. There is no significant jugular venous distention.Chest: Auscultation of the chest reveals scant rhonchi. Cardiac Exam: Reveals a regular rate and rhythm without appreciable murmur or gallop. Extremities: Without edema. LABORATORY DATA: Includes a white blood cell count of 3.9, hematocrit 36.0, hemoglobin 12.4, platelet count 231,000. Sodium 138, potassium 3.4, chloride 96, carbon dioxide 24, BUN 13, creatinine 0.7, glucose 98. IMPRESSION: 1. Acute on chronic systolic heart failure. Patient improved with diuresis. 2. Chronic obstructive pulmonary disease with exacerbation. 3. Alcohol dependence. 4. Severe dilated cardiomyopathy, nonischemic and probably related to his alcohol. RECOMMENDATIONS: 1. Transition to oral Lasix tomorrow. 2. Given relatively low blood pressure, discontinue carvedilol and switch to metoprolol low dose. 3. If blood pressure will allow, initiate angiotensin receptor vipin at low dose. cc: Ralph Lopez MD
--- NOTE | 2018-06-24 21:37 | CONSULTATION ---
DATE OF CONSULTATION: 06/24/2018 CHIEF COMPLAINT: Right shoulder injury. HISTORY OF PRESENT ILLNESS: Mr. Colunga is a 58-year-old male who suffered a fall, injuring his shoulder, on 06/10/2018. He was seen in the emergency room by the nurse practitioner under Dr. Lozada's supervision, diagnosed with a proximal humerus fracture. He went to see Dr. Woodall on Wednesday, was treated conservatively, and told that his shoulder would heal uneventfully. He subsequently presented to the emergency room where he was found to have shortness of breath and chest pain. 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 He has seen Dr. Urias in the past for this. He has been having orthopnea and dyspnea on exertion. He was subsequently admitted to the hospital and treated for his alcohol dependence and his cardiomyopathy as well as his pain. Once he was stabilized, I was asked to see him in orthopedic consultation. PAST MEDICAL HISTORY: 1. Cardiomyopathy. 2. Alcohol abuse and addiction. 3. Nicotine dependence as well. 4. Hypertension. 5. Hyperlipidemia. 6. COPD. PAST SURGICAL HISTORY: 1. Cholecystectomy. 2. Jaw surgery. 3. Right arm and ankle surgery. SOCIAL HISTORY: He admits to being at least a pack a day smoker. He, in the past, has admitted to drinking 5 to 6 beers a day, and also has smoked marijuana in the past. He states he is on disability secondary to his heart failure and cardiomyopathy. FAMILY HISTORY: Noncontributory. REVIEW OF SYSTEMS: A complete review of systems was performed and is normal except for those mentioned above. HOME MEDICATIONS: See the hospital record. ALLERGIES: No known drug allergies. PHYSICAL EXAMINATION: A well developed, well nourished male who is alert and oriented and appears to be comfortable, sitting in the bed. He has no complaints at this time. He has pain with any range of motion of his arm, but his arm is otherwise neurovascularly intact. X-RAYS: X-rays from 06/10/2018 show a minimally displaced surgical neck fracture. There are no x- rays from this visit. However, he does have a chest x-ray that again shows the fracture is nondisplaced. ASSESSMENT: Right minimally displaced proximal humerus fracture. PLAN: We will continue to treat this conservatively. He can follow up with Dr. Woodall on his discharge from the hospital. I will be available as needed. cc: Evan Cazares MD MTDD
[2018-06-25 07:47] LABS: BASO# 0.03 X1000 (0.0-0.2); BASO% 0.7 % (0.0-0.8); EOS% 4.5 % (0.0-10.0); HEMOGLOBIN 13.5 g/dL (14.0-18.0); IMM GRAN# 0.02 X1000 (0.0-0.04); IMM GRAN% 0.5 % (0.0-0.5); LYMPH% 27.1 % (20.5-51.1); MCH 33.5 PG (27-31); MCHC 34.6 g/dL (33-37); MCV 96.8 FL (81-99); MONO# 0.67 X1000 (0.11-0.59); MONO% 15.2 % (1.7-9.3); MPV 9.8 FL (7.4-10.4); PLT 299 X1000 (130-400); RBC 4.03 XMIL (4.7-6.1); RDW 12.4 % (11.5-14.5); WBC 4.42 X1000 (4.8-10.8)
[2018-06-25 08:06] LABS: AGAP 14; ALBUMIN 3.6 g/dL (3.5-5.0); BUN 14 mg/dL (8-22); CALCIUM 9.3 mg/dL (8.8-10.2); CHLORIDE 95 mmol/L (98-107); COSMO 268; CREATININE 0.8 mg/dL (0.7-1.2); ESTIMATED GFR > 60; GLUCOSE 94 mg/dL (70-104); PHOSPHORUS 4.2 mg/dL (2.7-4.5); POTASSIUM 3.8 mmol/L (3.5-5.1); SODIUM 134 mmol/L (136-145); TCO2 25 mmol/L (25-35)
[2018-06-25] MEDS: THERA M PLUS PO SCH (09:26)
[2018-06-25] MEDS: LANOXIN PO SCH (09:26)
[2018-06-25] MEDS: LASIX IV SCH (09:27)
[2018-06-25] MEDS: LIBRIUM PO SCH ×2 (09:27→21:47)
[2018-06-25] MEDS: ALDACTONE PO SCH (09:27)
[2018-06-25] MEDS: TOPROL XL PO SCH (09:27)
[2018-06-25] MEDS: NORCO-10 PO PRN ×2 (10:27→16:44)
[2018-06-25] MEDS: LOVENOX SUBQ SCH (16:44)
--- NOTE | 2018-06-25 20:26 | PROGRESS NOTE ---
DATE: 06/25/2018 SUBJECTIVE: The patient complains of pain in his right shoulder but otherwise has no other complaints. OBJECTIVE: Vital Signs: Temperature 97.6 degrees, blood pressure 110/73, heart rate 89, respirations 20, O2 saturation 97% on 2 L nasal cannula. General: This is a chronically ill- appearing elderly male, lying in bed in no acute distress. Heart: S1, S2 normal. Regular rate and rhythm. Lungs: Equal air entry bilaterally. No crackles. No rales. Abdomen: Positive bowel sounds. Soft, nontender, nondistended. Extremities: No edema. No cyanosis. Neurologic: The patient is alert and oriented x3. LABORATORY DATA: Reviewed. ASSESSMENT AND PLAN: 1. Acute on chronic systolic congestive heart failure exacerbation. Improved. We will transition the patient to oral Lasix. 2. Alcohol dependence. Continue to taper the Librium. 3. Fracture of the right proximal humerus. The patient will follow up with Orthopedic Surgery as outpatient. 4. Severe dilated cardiomyopathy. Aware. 5. Chronic obstructive pulmonary disease. Continue with bronchodilator therapy and supplemental oxygen. 6. Deep vein thrombosis prophylaxis. Continue on Lovenox. cc: Jeanette Strong MD MTDD
[2018-06-26] MEDS: NORCO-10 PO PRN ×3 (03:56→17:08)
[2018-06-26 07:22] LABS: HEMATOCRIT 42.7 % (42.0-52.0); HEMOGLOBIN 14.6 g/dL (14.0-18.0); MCH 33.9 PG (27-31); MCHC 34.2 g/dL (33-37); MCV 99.1 FL (81-99); MPV 9.5 FL (7.4-10.4); RBC 4.31 XMIL (4.7-6.1); RDW 12.9 % (11.5-14.5); WBC 4.78 X1000 (4.8-10.8)
[2018-06-26 07:50] LABS: AGAP 13; ALBUMIN 3.8 g/dL (3.5-5.0); BUN 12 mg/dL (8-22); CALCIUM 9.7 mg/dL (8.8-10.2); CHLORIDE 96 mmol/L (98-107); COSMO 270; CREATININE 0.9 mg/dL (0.7-1.2); ESTIMATED GFR > 60; GLUCOSE 134 mg/dL (70-104); PHOSPHORUS 3.8 mg/dL (2.7-4.5); POTASSIUM 3.9 mmol/L (3.5-5.1); SODIUM 134 mmol/L (136-145); TCO2 25 mmol/L (25-35)
[2018-06-26] MEDS: THERA M PLUS PO SCH (10:02)
[2018-06-26] MEDS: TOPROL XL PO SCH (10:02)
[2018-06-26] MEDS: LIBRIUM PO SCH ×2 (10:02→22:08)
[2018-06-26] MEDS: ALDACTONE PO SCH (10:02)
[2018-06-26] MEDS: LASIX PO SCH (10:02)
[2018-06-26] MEDS: LANOXIN PO SCH (10:02)
--- NOTE | 2018-06-26 14:14 | PROGRESS NOTE ---
DATE: 06/26/2018 SUBJECTIVE: The patient is resting comfortably in bed. No acute events noted overnight. OBJECTIVE: Vital Signs: Temperature 97.6 degrees, blood pressure 95/62, heart rate 83, respirations 17, O2 saturations 96% on room air. General: This is an elderly male lying in bed in no acute distress. Heart: S1, S2 normal. Regular rate and rhythm. Lungs: Equal air entry bilaterally. No crackles, no rales. Abdomen: Positive bowel sounds. Soft, nontender, nondistended. Extremities: No edema, no cyanosis. Neuro: The patient is alert and oriented x4. LABS: Sodium 134, potassium 3.9, BUN 12, creatinine 0.9, glucose 134, white blood cell count 4.7, platelets 300,000. ASSESSMENT AND PLAN: 1. Acute on chronic systolic congestive heart failure exacerbation. Continue with oral Lasix, Toprol-XL and Aldactone. 2. Alcohol dependence. The patient is on Librium taper. 3. Right proximal shoulder fracture. Will arrange an appointment for the patient to follow up with Ortho as outpatient. 4. Deep vein thrombosis prophylaxis. Continue on Lovenox. cc: Jeanette Strong MD MTDD
[2018-06-26] MEDS: LOVENOX SUBQ SCH (17:08)
[2018-06-27] MEDS: NORCO-10 PO PRN ×2 (01:03→07:52)
[2018-06-27 07:18] LABS: HEMOGLOBIN 13.9 g/dL (14.0-18.0); MCH 34.2 PG (27-31); MCHC 34.8 g/dL (33-37); MCV 98.5 FL (81-99); MPV 9.3 FL (7.4-10.4); RBC 4.06 XMIL (4.7-6.1); RDW 12.6 % (11.5-14.5); WBC 4.55 X1000 (4.8-10.8)
[2018-06-27 07:25] VITALS: BP 95/52
[2018-06-27] MEDS: THERA M PLUS PO SCH ×2 (07:52→08:10)
[2018-06-27] MEDS: LANOXIN PO SCH ×2 (07:52→08:10)
[2018-06-27] MEDS: TOPROL XL PO SCH ×2 (07:52→08:09)
[2018-06-27] MEDS: ALDACTONE PO SCH ×2 (07:52→08:09)
[2018-06-27] MEDS: LASIX PO SCH ×2 (07:52→08:10)
[2018-06-27 07:56] LABS: AGAP 12; ALBUMIN 3.9 g/dL (3.5-5.0); BUN 16 mg/dL (8-22); CHLORIDE 98 mmol/L (98-107); COSMO 274; CREATININE 0.9 mg/dL (0.7-1.2); ESTIMATED GFR > 60; GLUCOSE 112 mg/dL (70-104); PHOSPHORUS 4.4 mg/dL (2.7-4.5); SODIUM 136 mmol/L (136-145); TCO2 26 mmol/L (25-35)
--- NOTE | 2018-06-27 08:55 | Diag Imaging Result Doc PS360 ---
EXAM: CHEST-2 VIEWS HISTORY: pulmonary edema TECHNIQUE: Chest two views COMPARISON: 06/24/2018 FINDINGS: The lungs are hyperexpanded. The heart is not enlarged. The vessels are not distended. There are no infiltrates. No pleural effusions. IMPRESSION: No pulmonary edema on the current study. Electronically signed by Charbel Green 06/27/2018 8:53 AM
--- NOTE | 2018-06-29 10:50 | DISCHARGE SUMMARY ---
ADMISSION DATE: 06/21/2018 DISCHARGE DATE: 06/27/2018 FINAL DISCHARGE DIAGNOSES: 1. Acute on chronic systolic congestive heart failure exacerbation. 2. Alcohol dependence. 3. Right proximal humerus fracture. CONSULTATIONS REQUESTED DURING THIS HOSPITAL STAY: 1. Cardiology consultation with Dr. Lopez. 2. Orthopedic consultation with Dr. Cazares. IMAGING: Pulmonary arteriogram which revealed no evidence of pulmonary embolism. Displaced fracture of the right shoulder surgical neck. Pulmonary edema. HOSPITAL COURSE: Mr. Colunga is a 58-year-old male with a history of alcohol dependence and severe dilated cardiomyopathy with an EF of 15%, who presented to the ER with a chief complaint of shortness of breath. The patient was admitted with a diagnosis of acute on chronic systolic congestive heart failure exacerbation. He was started on IV Lasix and his volume status was monitored closely. The patient was also noted to have a right proximal humerus fracture. The patient stated that he had followed up with an orthopedic surgeon in [place] and had some imaging done, but had not had a chance to return for follow-up visit. While hospitalized, the patient was seen by Dr. Cazares who recommended that the patient follow up with the original orthopedic surgeon that he saw prior to admission. The patient was also given a sling to wear to stabilize shoulder. The patient responded well to diuretic therapy and his shortness in of breath improved. The patient was again advised to quit drinking alcohol. The patient continued to improve clinically and was ultimately cleared for discharge home on 06/27/2018. DISCHARGE MEDICATIONS: 1. Aspirin 81 mg p.o. daily. 2. Garrison 10/325 one tab oral every 6 hours p.r.n. for pain. 3. Toprol-XL 25 mg p.o. daily. 4. Vasotec 2.5 mg p.o. daily. 5. Nitroglycerin 0.4 mg sublingual p.r.n. for chest pain. 6. Digoxin 125 mcg oral daily. 7. Aldactone 25 mg p.o. daily. 8. Lasix 40 mg p.o. daily. 9. Protonix 40 mg p.o. daily. 10. Multivitamin 1 tab oral daily. 11. Carafate 1 gram p.o. before meals and at bedtime. DISCHARGE DIET: Low-sodium, low-cholesterol diet. ACTIVITY: As tolerated. FOLLOWUP INSTRUCTIONS: 1. The patient will need to follow up with Dr. Lopez as scheduled by his clinic. 2. The patient will also need to follow up with the orthopedic surgeon in [place] that he saw prior to admission for further treatment. cc: MD Mariajose Herrera M. D.
== END 2018-06-27 12:58 | disposition home or self-care (01) | DRG 292 ==
LOC: ED 12:39 → SUATTDRO 17:56 → EDIPHOLD 17:56 → 3N 06-22 14:07
PROVIDERS: ATTEND Internal Medicine
CPT/HCPCS: 71010; 71020; 71045; 71046; 71275; 80048; 80053; 80069; 82550; 83735; 83880; 84100; 84436; 84443; 84484; 85025; 85027; 85610; 85730; 93005; 93010; 93306; 96365; 96366; 96375; 96376; 99285; A9270; J1650; J1940; J2270; J2405; J3411; J3475; J7030; Q9967

== ENCOUNTER 2018-12-30 09:03 | Observation (INO) ==
[2018-12-30] MEDS ORDERED: NS 500 ML IV ONE (09:32)
--- NOTE | 2018-12-30 09:34 | PROVIDER DOCUMENTATION ---
HPI-Respiratory General - General Chief Complaint: SEPSIS ALERT - D Stated Complaint: WEAKNESS Time Seen by Provider: 12/30/18 09:22 Source: patient Allergies/Adverse Reactions: Patient Allergies Allergy/AdvReac Type Severity Reaction Status Date / Time No Known Allergies Allergy Verified 12/18/18 12:35 Home Medications: Home Medication List Medication Instructions Recorded Confirmed Last Taken Type Nitroglycerin Sl [Nitroglycerin] 0.4 mg SL PRN PRN 06/06/15 08/20/18 09/03/16 History Digoxin 125 mcg PO DAILY #60 tablet 11/07/16 08/20/18 01/21/17 07:00 Rx Furosemide [Lasix] 40 mg PO DAILY #30 tablet 11/07/16 08/20/18 03/03/17 Rx Spironolactone 25 mg PO DAILY #30 tablet 11/07/16 08/20/18 03/03/17 Rx Pantoprazole [Protonix] 40 mg PO DAILY@0700 #30 tablet 01/15/17 08/20/18 01/21/17 07:00 Rx Multivit,Fe,Ca,FA & Min [Thera M 1 ea PO DAILY #120 tab 01/24/17 08/20/18 03/03/17 Rx Plus] Sucralfate [Carafate] 1 gm PO AC + HS #120 tab 08/09/17 08/20/18 Unknown Rx Aspirin EC 81 mg PO DAILY #30 tab 06/27/18 08/20/18 Unknown Rx ENALApril [Vasotec] 2.5 mg PO DAILY #30 tab 06/27/18 08/20/18 Unknown Rx Metoprolol Succinate E.r. [Toprol 25 mg PO DAILY #30 tab 06/27/18 08/20/18 Unknown Rx Xl] Ondansetron Odt [Zofran 8Mg Odt] 8 mg PO Q8H PRN PRN #8 tab 08/20/18 Unknown Rx Tramadol [Ultram] 50 mg PO Q8HR PRN #15 tab 08/20/18 Unknown Rx CefDINIR [Omnicef] 300 mg PO BID #20 cap 12/18/18 Unknown Rx Guaifenesin [Guaifenesin ER] 1,200 mg PO BID #14 tab.er.12h 12/18/18 Unknown Rx Methylprednisolone [Medrol Dosepak] 4 mg PO DIRECTED #1 pkg 12/18/18 Unknown Rx - History of Present Illness-Resp Nature of Presenting Problem: Patient is a 58 yowm who arrived via EMS due to a non-productive cough x 1 week and SOB x "a few days". Hx of CHF and COPD. Also c/o generalized weakness. Denies chest pain or any other complaints. Review of Systems - Adult - REVIEW OF SYSTEMS - ADULT Constitutional: reports: no symptoms reported Eyes: reports: no symptoms reported Ears, Nose, Mouth & Throat: reports: no symptoms reported Cardiovascular: reports: no symptoms reported Respiratory: reports: see HPI Gastrointestinal: reports: no symptoms reported Genitourinary: reports: no symptoms reported Musculoskeletal: reports: see HPI (generalized weakness) Integumentary: reports: no symptoms reported Neurological: reports: no symptoms reported Psychiatric: reports: no symptoms reported Endocrine: reports: no symptoms reported Hematologic/Lymphatic: reports: no symptoms reported Allergic/Immunologic: reports: no symptoms reported All Other Systems: Reviewed and Negative Past History - Adult - PAST MEDICAL HISTORY-ADULT Review of Records: reports: Nursing Assessment Review, Medications Reviewed, Social history reviewed & non-contributory. Major Childhood Illnesses: reports: denies history Cardiovascular: reports: arrhythmia, CAD, CHF, HTN, hyperlipidemia Respiratory: reports: COPD Gastrointestinal: reports: GERD, pancreatitis Obstetrical/Gynecological: reports: denies history Genitourinary: reports: denies history Musculoskeletal: reports: arthritis, other fractures (pt reports old rib fx) Neurological: reports: denies history Psychiatric: reports: bipolar, schizophrenia, other (EtOH abuse) Endocrine/Immune: reports: denies history Other Conditions: reports: denies history - PRIOR SURGERIES/PROCEDURES Surgical/Procedure History: reports: cholecystectomy, orthopedic (extremity) (left ankle; L hand), other (jaw surgery) - PRIOR HOSPITALIZATIONS Prior Hospitalizations: reports: none - IMMUNIZATION STATUS Childhood Immunizations: See Nurse Assessment Flu Vaccine: See Nurse Assessment - FAMILY HISTORY Family History: reviewed, not pertinent - SOCIAL HISTORY Smoking: cigarettes, greater than 1 pack/day Physical Exam-General - PHYSICAL EXAM-ADULT Initial Vital Signs Reviewed: Yes - CONSTITUTIONAL General Appearance: alert, no apparent distress - EYES Eyes: PERRL/EOMI, pink conjunctivae - HEAD, EARS, NOSE, MOUTH & THROAT HENMT: normocephalic/atraumatic, moist mucous membranes - NECK Neck: full range of motion, supple, normal inspection - RESPIRATORY Respiratory: chest non-tender, no respiratory distress, no accessory muscle use, decreased breath sounds, crackles (bilateral lung bases) - CARDIOVASCULAR Cardiovascular: normal peripheral pulses, no edema, no gallop, no murmur, systolic murmur - GASTROINTESTINAL (ABDOMEN) Abdominal Exam: normal bowel sounds, non tender, soft - MUSCULOSKELETAL Back Exam: normal inspection Extremity: normal range of motion, normal inspection - SKIN Integumentary: normal color, warm/dry. negative: cyanosis, diaphoresis, jaundic e - NEUROLOGIC Neurologic: grossly normal, no motor/sensory deficits - PSYCHIATRIC Psych/Mental Status: normal mood/affect, normal thought content, normal thought process, oriented x 3, other (pt smells of etoh- admits to drinking daily and states he had 2 beers this morning. He is drowsy but a&ox4 and answers questions appropriately.) - HEART Score HEART Score: History: Slightly Suspicious HEART Score: ECG: Non-Specific Repolarization Disturbance/LBBB/PM HEART Score: Age: 45-65 Years HEART Score: Risk Factors for Atherosclerotic Disease: > or = 3 Risk Factors or History of Atherosclerotic Disease Progress - PLAN OF CARE/RESULTS Progress/Plan/Lab Results: Vital Signs - 8 hr 12/30/18 09:11 12/30/18 11:03 Temperature 96.9 F L 97.2 F L Pulse Rate 73 Respiratory Rate 22 Blood Pressure 83/66 O2 Sat by Pulse Oximetry 99 Laboratory Results - last 24 hr 12/30/18 12/30/18 12/30/18 10:24 10:24 10:24 WBC 13.48 H RBC 4.53 L Hgb 14.8 Hct 42.5 MCV 93.8 MCH 32.7 H MCHC 34.8 RDW Std Deviation 13.8 Plt Count 456 H MPV 9.4 Immature Gran % (Auto) 1.4 H Neut % (Auto) 78.2 H Lymph % (Auto) 15.0 L Garvin % (Auto) 4.9 Eos % (Auto) 0.4 Baso % (Auto) 0.1 Immature Gran # (Auto) 0.19 H Neut # (Auto) 10.54 H Lymph # (Auto) 2.02 Garvin # (Auto) 0.66 H Eos # (Auto) 0.06 Baso # (Auto) 0.01 PT 15.0 INR 1.17 PTT (Actin FS) 32.0 Specimen Type Sample Site pH pCO2 pO2 HCO3 Base Excess Oxyhemoglobin ABG O2 Sat (Calculated) ABG O2 Saturation ABG Carboxyhemoglobin ABG Methemoglobin Car Test A-a O2 Difference Total Hemoglobin Lactate Liter Flow Blood Gas Modality FiO2 % Sodium 122 L Potassium 5.0 Chloride 82 L Carbon Dioxide 21 L Anion Gap 19 BUN 10 Creatinine 0.8 Estimated GFR/1.73 m2 > 60 BUN/Creatinine Ratio 13 Glucose 101 Calculated Osmolality 245 Calcium 8.9 Total Bilirubin 1.29 H AST 342 H ALT 250 H Alkaline Phosphatase 185 H Creatine Kinase 80 Troponin T Total Protein 7.3 Albumin 4.3 Globulin 3.0 Albumin/Globulin Ratio 1.4 Plasma Lactate Plasma/Serum Ethyl Alc 12/30/18 12/30/18 12/30/18 10:24 10:24 10:24 WBC RBC Hgb Hct MCV MCH MCHC RDW Std Deviation Plt Count MPV Immature Gran % (Auto) Neut % (Auto) Lymph % (Auto) Garvin % (Auto) Eos % (Auto) Baso % (Auto) Immature Gran # (Auto) Neut # (Auto) Lymph # (Auto) Garvin # (Auto) Eos # (Auto) Baso # (Auto) PT INR PTT (Actin FS) Specimen Type Sample Site pH pCO2 pO2 HCO3 Base Excess Oxyhemoglobin ABG O2 Sat (Calculated) ABG O2 Saturation ABG Carboxyhemoglobin ABG Methemoglobin Car Test A-a O2 Difference Total Hemoglobin Lactate Liter Flow Blood Gas Modality FiO2 % Sodium Potassium Chloride Carbon Dioxide Anion Gap BUN Creatinine Estimated GFR/1.73 m2 BUN/Creatinine Ratio Glucose Calculated Osmolality Calcium Total Bilirubin AST ALT Alkaline Phosphatase Creatine Kinase Troponin T 0.027 Total Protein Albumin Globulin Albumin/Globulin Ratio Plasma Lactate 3.8 H Plasma/Serum Ethyl Alc 125 H 12/30/18 10:56 WBC RBC Hgb Hct MCV MCH MCHC RDW Std Deviation Plt Count MPV Immature Gran % (Auto) Neut % (Auto) Lymph % (Auto) Garvin % (Auto) Eos % (Auto) Baso % (Auto) Immature Gran # (Auto) Neut # (Auto) Lymph # (Auto) Garvin # (Auto) Eos # (Auto) Baso # (Auto) PT INR PTT (Actin FS) Specimen Type ARTERIAL Sample Site L RADIAL pH 7.45 pCO2 24 L pO2 116 H HCO3 20.6 Base Excess -5.4 L Oxyhemoglobin 94.6 L ABG O2 Sat (Calculated) 18.6 ABG O2 Saturation 99.5 ABG Carboxyhemoglobin 4.00 H ABG Methemoglobin 0.9 Car Test YES A-a O2 Difference 54.0 Total Hemoglobin 13.9 Lactate 3.10 H Liter Flow 2.0 Blood Gas Modality CANNULA FiO2 % 28.0 Sodium Potassium Chloride Carbon Dioxide Anion Gap BUN Creatinine Estimated GFR/1.73 m2 BUN/Creatinine Ratio Glucose Calculated Osmolality Calcium Total Bilirubin AST ALT Alkaline Phosphatase Creatine Kinase Troponin T Total Protein Albumin Globulin Albumin/Globulin Ratio Plasma Lactate Plasma/Serum Ethyl Alc Orders Category Date Time Status Cardiac Monitoring DIRECTED Care 12/30/18 09:23 Active IV Insertion ORDERED Care 12/30/18 09:23 Completed Notify MD of + Sepsis Screen NOW Care 12/30/18 09:23 Active Notify Physician As Ordered Care 12/30/18 09:23 Active Vital Signs Order Q30M Care 12/30/18 09:34 Active CHEST-2 VIEWS [RAD] Stat Exams 12/30/18 09:31 Completed ABG [RESP] Routine Lab 12/30/18 10:56 Completed ALCOHOL BLOOD Stat Lab 12/30/18 10:24 Completed BLOOD CULTURE [BLDCUL] Stat Lab 12/30/18 10:20 Ordered CBC WITH DIFF [HEME] Stat Lab 12/30/18 10:24 Completed CK PROFILE [SP CHEM] Stat Lab 12/30/18 10:24 Completed COMPREHENSIVE METABOLIC PANEL [CHEM] Stat Lab 12/30/18 10:24 Completed LACTATE, PLASMA [CHEM] Lab 12/30/18 10:24 Completed LACTATE, PLASMA [CHEM] Lab 12/30/18 12:30 Uncollected LACTATE, PLASMA [CHEM] Lab 12/30/18 15:30 Uncollected MAGNESIUM [CHEM] Stat Lab 12/30/18 11:32 Uncollected PRO B-NATRIURETIC PEPTIDE Stat Lab 12/30/18 10:24 Received PROTIME WITH INR [COAG] Stat Lab 12/30/18 10:24 Results PTT [COAG] Stat Lab 12/30/18 10:24 Results TROPONIN T Stat Lab 12/30/18 10:24 Completed URINALYSIS W/POSS RFLX CULT [URINALYSIS] Stat Lab 12/30/18 09:23 Uncollected 0.9% Sodium Chloride Inj [Ns] 1,000 ml Med 12/30/18 11:31 Stop Req IV 100 mls/hr 0.9% Sodium Chloride Inj [Ns] 500 ml Med 12/30/18 09:32 Discontinued IV 999 mls/hr CefTRIAXONE [Rocephin] 1 gm Med 12/30/18 10:13 Discontinued 0.9% Sodium Chloride Inj [Ns] 50 ml IV NOW Mvi [M.v.i.-12] 10 ml Med 12/30/18 11:35 Ordered Folic Acid 1 mg Magnesium Sulfate 1 gm Thiamine 100 mg 0.9% Sodium Chloride Inj [Ns] 1,000 ml IV NOW Oxygen Device Stat Oth 12/30/18 09:23 Active Result Diagrams: 12/30/18 10:24 12/30/18 10:24 - REASSESSMENT Reassessment #1 Time Reassessed: 11:32 Status: other (Admitting HPS paged. Pt in agreement with admission plan. BP 94/71 at this time.) - CONSULTS/PCP/HOSPITALIST Notification #1 *Consult/PCP/Hospitalist*: MARILEE Cardoso [employer] Time Discussed: 11:37 Reason/Comments: admit- sepsis pne, hyponatremia, etoh abuse Consult Disposition: Will see in ED, Admit (to Dr. Argueta) Departure - Departure Date of Disposition Decision: 12/30/18 Time of Disposition Decision: 11:20 DIAGNOSIS: Hyponatremia, Alcohol abuse, Elevated liver enzymes Pneumonia Qualifiers: Pneumonia type: due to unspecified organism Laterality: unspecified laterality Lung location: lower lobe of lung Qualified Code(s): J18.1 - Lobar pneumonia, unspecified organism Sepsis Qualifiers: Sepsis type: sepsis due to unspecified organism Sepsis acute organ dysfunction status: unspecified Qualified Code(s): A41.9 - Sepsis, unspecified organism Hypotension Qualifiers: Hypotension type: unspecified hypotension type Qualified Code(s): I95.9 - Hypotension, unspecified Disposition: ADMITTED INPATIENT 09 Certified Medical Emergency: Emergent Condition: Serious Referrals and Follow-Ups: Mariajose Jang MD [Primary Care Provider] - - Critical Care Note This patient required my direct & personal management of CC.: No Attestation - Physician/ MARY Attestation Patient care was provided by Advanced Practice Provider:: Yes Advanced Practice Provider:: Savannah,Kari C. Advanced Practice Provider documentation review:: The Mid-level provider documentation, treatment plan and medical decision making was reviewed by the physician who agrees with all treatment and medical decision making by the MLP. The physician spent face to face time with patient:: No Advanced Practice Provider documentation review:: Supervising physician onsite and consulted in the evaluation and care of this patient. The physician did not have a face to face encounter with the patient. Sepsis: Tissue Perfusion Assmt - Physical Exam Assessment Date: 12/30/18 Time Assessment Initialized: 11:38 Vital Signs: Last Vital Signs Temp 97.2 F L 12/30/18 11:03 Pulse 73 12/30/18 09:11 Resp 22 12/30/18 09:11 BP 83/66 12/30/18 09:11 Pulse Ox 99 12/30/18 09:11 Height 5 ft 5 in Weight 130 lb Lung Sounds:: crackles Heart Sounds:: Murmur Capillary Refill Time: Less Than 2 Seconds Peripheral Pulse Evaluation:: radial (R): 3+, radial (L): 3+ Skin Exam:: pink - Impression Impression:: Tissue Perfusion Adequate - Plan Plan:: See Orders
--- NOTE | 2018-12-30 10:11 | Diag Imaging Result Doc PS360 ---
EXAM: CHEST-2 VIEWS HISTORY: cough, SOB, COPD TECHNIQUE: Chest two views COMPARISON: 07/07/2018 FINDINGS: The lungs are well expanded. The heart is enlarged. The vessels are not distended. There are small basilar infiltrates. No pleural effusions. IMPRESSION: Cardiomegaly as well as posterior basilar pneumonia. Electronically signed by Charbel Green 12/30/2018 10:08 AM
[2018-12-30] MEDS ORDERED: ROCEPHIN 1 GM in NS 50 ML IV ONE (10:13)
--- NOTE | 2018-12-30 10:13 | ED EKG INTERP ---
This chart was entered by Daniela Perez Scribe, acting as scribe for Josie Dalal MD. EKG Interpretation - EKG Time of EKG reading by physician:: 09:09 EKG Read and Signed by:: Josie Dalal EKG Interpretation (*Must complete 3 of following elements*): Abnormal (possible left atrial enlargement) Rate: 72 Rhythm: nsr Wilber: left QRS: LBB Attestation - Physician/ MARY Attestation Patient care was provided by Advanced Practice Provider:: No The physician spent face to face time with patient:: Yes Advanced Practice Provider documentation review:: Supervising physician onsite and consulted in the evaluation and care of this patient. The physician did have a face to face encounter with the patient. This chart was documented by the indicated scribe, (Daniela Perez Scribe) and accurately reflects the services I performed and decisions made by me, Josie Dalal MD, as attested by the provider's signature.
[2018-12-30 10:42] LABS: BASO# 0.01 X1000 (0.0-0.2); BASO% 0.1 % (0.0-0.8); EOS# 0.06 X1000 (0.0-0.7); EOS% 0.4 % (0.0-10.0); HEMATOCRIT 42.5 % (42.0-52.0); HEMOGLOBIN 14.8 g/dL (14.0-18.0); IMM GRAN# 0.19 X1000 (0.0-0.04); IMM GRAN% 1.4 % (0.0-0.5); LYMPH# 2.02 X1000 (1.2-3.4); MCH 32.7 PG (27-31); MCHC 34.8 g/dL (33-37); MCV 93.8 FL (81-99); MONO# 0.66 X1000 (0.11-0.59); MONO% 4.9 % (1.7-9.3); MPV 9.4 FL (7.4-10.4); NEUT# 10.54 X1000 (1.4-6.5); NEUT% 78.2 % (42.2-75.2); PLT 456 X1000 (130-400); RBC 4.53 XMIL (4.7-6.1); RDW 13.8 % (11.5-14.5); WBC 13.48 X1000 (4.8-10.8)
[2018-12-30 11:06] LABS: ALLEN TEST YES; BE -5.4 mmoll (-3.0-3.0); BLOOD TYPE ARTERIAL; HCO3-(ACT) 20.6 mmoll (20.0-26.0); METHB 0.9 % (0.0-1.5); O2(CT) 18.6 mL/dL (15.0-23.0); O2HB 94.6 % (95.0-99.0); PCO2(98.6) 24 mmHg (35-45); PO2(98.6) 116 mmHg (60-100); SAMPLE BLOOD; SAO2 99.5 % (95.0-100.0); THB 13.9 g/dL (11.5-17.4); pH(98.6) 7.45 (7.35-7.45)
[2018-12-30 11:07] LABS: MODALITY CANNULA
[2018-12-30 11:09] LABS: ESTIMATED GFR > 60
[2018-12-30 11:12] LABS: AGAP 19; ALB/GLOB RATIO 1.4; ALBUMIN 4.3 g/dL (3.5-5.0); ALKALINE PHOSPHATASE 185 U/L (32-122); BUN 10 mg/dL (8-22); CALCIUM 8.9 mg/dL (8.8-10.2); CHLORIDE 82 mmol/L (98-107); CK PROFILE 80 U/L (24-204); COSMO 245; CREATININE 0.8 mg/dL (0.7-1.2); GLUCOSE 101 mg/dL (70-104); GOT 342 U/L (10-34); GPT 250 U/L (10-44); SODIUM 122 mmol/L (136-145); TCO2 21 mmol/L (25-35); TOTAL BILIRUBIN 1.29 mg/dL (0.20-1.00); TOTAL PROTEIN 7.3 g/dL (6.3-8.3)
[2018-12-30] MEDS ORDERED: NS 1,000 ML IV ONE (11:31)
[2018-12-30 11:35] LABS: INR 1.17
[2018-12-30] MEDS ORDERED: M.V.I.-12 10 ML, FOLIC ACID 1 MG, MAGNESIUM SULFATE 1 GM, THIAMINE 100 MG in NS 1,000 ML IV ONE (11:35)
[2018-12-30 12:19] LABS: URINE SOURCE CLEAN CATCH
[2018-12-30] MEDS ORDERED: ATIVAN IV PRN (12:21)
[2018-12-30] MEDS ORDERED: TYLENOL PO PRN (12:21)
[2018-12-30 12:27] LABS: BILIRUBIN URINE NEGATIVE (NEGATIVE); BLOOD URINE NEGATIVE (NEGATIVE); COLOR YELLOW; GLUCOSE URINE NEGATIVE (NEGATIVE); KETONE URINE NEGATIVE (NEGATIVE); LEUKOCYTES URINE NEGATIVE (NEGATIVE); NITRITE URINE NEGATIVE (NEGATIVE); PROTEIN URINE TRACE mg/dL (NEGATIVE); SP GRAVITY URINE 1.012; TURBIDITY URINE CLEAR (CLEAR); UROBILINOGEN URINE NORMAL (NORMAL)
--- NOTE | 2018-12-30 12:29 | EKG Report ---
Test Performed on : 12/30/2018 09:09:35 AM Test Reason : CHF Blood Pressure : / mmHG Vent. Rate : 072 BPM Atrial Rate : 072 BPM P-R Int : 178 ms QRS Dur : 210 ms QT Int : 492 ms P-R-T Axes : 051 -32 098 degrees QTc Int : 538 ms Normal sinus rhythm. Possible Left atrial enlargement Left axis deviation Left bundle branch block Abnormal ECG When compared with ECG of 07-JUL-2018 21:55, Left bundle branch block is now present Unconfirmed Result
[2018-12-30 12:32] LABS: UR EPITHELIAL CELLS <10 /HPF (<10); URINE BACTERIA NEGATIVE /HPF; URINE RBC <10 /HPF (<10); URINE WBC <10 /HPF (<10)
[2018-12-30 12:47] LABS: URINE CRYSTALS NONE SEEN
[2018-12-30] MEDS ORDERED: SOLU-MEDROL IV SCH (13:00)
--- NOTE | 2018-12-30 13:02 | Diag Imaging Result Doc PS360 ---
CT THORAX W/O CONTRAST - 12/30/2018 INDICATION: pna; sob COMPARISON: Chest x-ray 12/30/2018 FINDINGS: There is severe cardiomegaly. There is moderate calcified coronary artery disease. There are small bilateral pleural effusions. There are shotty mediastinal lymph nodes but no adenopathy. There is trace ascites in the upper abdomen. No other abdominal abnormalities. There is moderate infiltrate in both lower lobes. There is some hazy interstitial pulmonary edema centrally. Old left-sided rib deformity. No acute bony lesions. IMPRESSION: 1. Severe cardiomegaly. Trace pleural effusions. Trace pulmonary edema. 2. Nonspecific bibasilar infiltrates consistent with pneumonia or pulmonary edema. 3. Trace ascites. This exam was performed using automated exposure control, adjustment of mA or kV according to patient size, and/or use of iterative reconstruction technique Electronically signed by Artie Lyon 12/30/2018 12:59 PM
--- NOTE | 2018-12-30 13:24 | HISTORY AND PHYSICAL ---
PRIMARY CARE PROVIDER: Dr. Mariajose Jang, medical doctor. CHIEF COMPLAINT: Shortness of breath and coughing up green phlegm with a little nausea, vomiting and diarrhea. HISTORY OF PRESENT ILLNESS: Mr. 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 He has chronic alcohol dependence with beer. His systolic heart failure has an ejection fraction of 15%. States that he has been sick for at least a week. Last Wednesday he went to his primary care where he was prescribed Mucinex, steroids and Omnicef. He just states that his symptoms have not gotten better. He has had shortness of breath with activity, coughing up green phlegm and subjective fevers. He has also had some nausea, vomiting and some diarrhea, but denies any abdominal pain. He states the Zofran has made his nausea better. He states that his last alcoholic beverage was beer at 8 o'clock this morning. He denies ever having any DTs. He is somewhat low on blood pressure and improves with a little bit of fluids, but was to be very careful because he can easily go into congestive heart failure acute. His lactate is up, so he did get some fluids. We will start him on some antibiotics. Sodium is a little low. His AST/ALT; those are elevated. PAST MEDICAL HISTORY: 1. 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 2. Chronic alcohol dependence. 3. Systolic congestive heart failure. EF 15%. 4. Nicotine dependence. 5. Hypertension. 6. Hyperlipidemia. 7. History of nonsustained ventricular tachycardia. 8. Chronic left bundle branch block. 9. COPD. Uses home nebulizers, but no home oxygen. 10. Hyperlipidemia. 11. Recent fall with humerus fractures on the right foot. PAST SURGICAL HISTORY: 1. Cholecystectomy. 2. Left hand and foot surgeries. 3. Jaw surgery. SOCIAL HISTORY: 1. Smokes a pack per day since age of 17. 2. Admits to drinking 4 or 5 beers daily with the last being at 8 a.m. 3. Admits to marijuana in the past, but nothing recent. Otherwise, no other illicit drug use. 4. He is on disability secondary to congestive heart failure and cardiomyopathy. FAMILY HISTORY: 1. Mother: No medical conditions that he can remember. 2. Father: Heart disease and at the age 55. ALLERGIES: No known drug allergies. HOME MEDICATIONS: Have not been reconciled. REVIEW OF SYSTEMS: Fourteen point review of systems are complete and all were negative, except for those mentioned above in HPI. PHYSICAL EXAMINATION: VITAL SIGNS: Temperature 97.2 degrees, heart rate 78, respiratory rate 20, blood pressure 100/73, O2 saturation 100% on nasal cannula. GENERAL: Mr. Colunga is a 58-year-old, ill-appearing, anorexic male. He is in no acute distress. He is actually kind of drowsy, but wakes up easily and answers questions. HEENT: Atraumatic, normocephalic. Pupils equal, round, reactive to light. Extraocular movements intact. Mucous membranes are moist. No teeth. NECK: Trachea midline. CARDIOVASCULAR: S1, S2. Positive, probably about 3/6 systolic ejection murmur. No rubs or gallops. No lower extremity edema. He has got +1 dorsalis and radial pulses. Positive JVD. Negative carotid bruits. PULMONARY: Clear to auscultate. Bilateral breath sounds. Decreased in the bases. No accessory muscle use or work of breathing noted, but he is tolerating nasal cannula. GI: Soft, nontender, nondistended. Positive bowel sounds x4. EXTREMITIES: Moves all extremities equally. Decreased range of motion. NEUROLOGIC: A and O x3. Somewhat drowsy. Follows commands. Sensory is intact. SKIN: Warm, dry, intact and pale. EXTREMITIES: A little cool. LABORATORY DATA: White blood cells 13,000. Hemoglobin 14, hematocrit 42, platelet count 456. INR is 1.17, PTT is 32. ABGs: A pH 7.45 pCO2 24, PO2 116, bicarbonate 20, base excess -5.4, saturation 94%. Lactate 3.1 on 2 L nasal cannula. Sodium 122 potassium 5.2, BUN 10, creatinine 0.8, glucose 101, calcium 8.9, bilirubin is 1.29. AST 342, ALT 250. CK 82, troponin 0.027. ProBNP is 15,965. Albumin 4.3, lactate 3.8. He has got trace protein in the urine. Alcohol level 125. IMAGIN. Chest x-ray: Cardiomegaly and posterior bibasilar pneumonia. 2. EKG: Normal sinus rhythm, rate 72. QTc 538. ASSESSMENT AND PLAN: 1. Bibasilar pneumonia. Could be aspiration, could be community acquired. We will treat him with Zosyn. He has elevated lactate, so he did get some fluids with that. He got a 500 saline bolus. 2. Nonischemic cardiomyopathy with systolic congestive heart failure and ejection fraction of 15%. The patient states that he tries to take his medications as prescribed. So, it is a high suspicion for noncompliance of his medication regimen. Will need to get him resumed on his home medications while he is here, and currently the blood pressure is a little on the lower side, so we may have to withhold some of those antihypertensives. With the fluids he got for the elevated lactate, he may end up needing Lasix. 3. Alcohol intoxication with chronic alcohol dependence and abuse. He has as- needed Ativan. Could consider adding a Librium taper. Schedule folic acid, thiamine and magnesium. Will hold off on the banana bags; he did get 1 in the emergency room, but that is going to probably be too much volume for his heart. 4. Chronic obstructive pulmonary disease. He will do nebulizers. We will continue the oxygen 5. Hypertension, but currently hypotensive, improved with 500 mL of saline. 6. Hyponatremia could be secondary to the alcohol abuse or the congestive heart failure. 7. Hyperlipidemia. I do not believe he is on a statin, but home medications have not been reconciled yet. 8. Complaints of nausea, vomiting and diarrhea. He can have antiemetics as needed. 9. Deep venous thrombosis prophylaxis. Sequential compression devices. 10. Tobacco abuse. Cessation discussed. Nicotine patch ordered. Dictated by DANK Simmons for Manjeet Argueta MD cc: DANK Simmons agree with the above. the following is my own face to face assessment. patient with dyspnea and cough for a week. xray suggestive of pneumonia although his lung exam is actually pretty clear. given serious comorbidities, we will start on antibiotics and monitor closely. patient appears to have chronic mild hypotension so we will not be aggressive with IVF. no wheezing on exam to suggest significant copd involvement so we will hold off on steroids for now. MTDD
[2018-12-30] MEDS: MAG-OX PO SCH ×2 (14:12→20:23)
[2018-12-30] MEDS: ZOSYN 3.375 GM in NS 50 ML IV SCH ×2 (14:12→20:23)
[2018-12-30] MEDS: NICODERM PATCH TD SCH (14:12)
[2018-12-30] MEDS: FOLIC ACID PO SCH (14:12)
[2018-12-30] MEDS: DUONEB (A & A) INH SCH ×2 (16:18→21:08)
[2018-12-30] MEDS ORDERED: THIAMINE 100 MG in NS 50 ML IV SCH (21:00)
[2018-12-30] MEDS: PULMICORT INH SCH (21:08)
[2018-12-31] MEDS: ZOSYN 3.375 GM in NS 50 ML IV SCH ×3 (01:00→13:56)
[2018-12-31] MEDS: DUONEB (A & A) INH SCH ×2 (03:10→09:56)
[2018-12-31 05:20] LABS: EOS# 0.03 X1000 (0.0-0.7); EOS% 0.4 % (0.0-10.0); HEMATOCRIT 37.5 % (42.0-52.0); HEMOGLOBIN 12.8 g/dL (14.0-18.0); IMM GRAN# 0.05 X1000 (0.0-0.04); IMM GRAN% 0.6 % (0.0-0.5); LYMPH# 0.51 X1000 (1.2-3.4); MCHC 34.1 g/dL (33-37); MCV 93.8 FL (81-99); MONO# 0.13 X1000 (0.11-0.59); MONO% 1.5 % (1.7-9.3); MPV 9.8 FL (7.4-10.4); NEUT# 7.73 X1000 (1.4-6.5); NEUT% 91.5 % (42.2-75.2); PLT 370 X1000 (130-400); RDW 13.6 % (11.5-14.5); WBC 8.45 X1000 (4.8-10.8)
[2018-12-31 05:52] LABS: AGAP 14; ALB/GLOB RATIO 1.1; ALBUMIN 3.1 g/dL (3.5-5.0); ALKALINE PHOSPHATASE 169 U/L (32-122); BUN 12 mg/dL (8-22); CALCIUM 8.1 mg/dL (8.8-10.2); CHLORIDE 90 mmol/L (98-107); COSMO 253; CREATININE 0.6 mg/dL (0.7-1.2); ESTIMATED GFR > 60; GLUCOSE 166 mg/dL (70-104); GOT 517 U/L (10-34); GPT 471 U/L (10-44); POTASSIUM 4.5 mmol/L (3.5-5.1); SODIUM 124 mmol/L (136-145); TCO2 20 mmol/L (25-35); TOTAL BILIRUBIN 0.99 mg/dL (0.20-1.00)
[2018-12-31 06:27] LABS: BANDS 6 % (0-1); LYMPHS 4 % (21-51); MONO 2 % (1-9); SEGS 88 % (42-75)
[2018-12-31] MEDS ORDERED: ANORO ELLIPTA 62.5-25 MCG INH INH SCH (07:30)
[2018-12-31 08:32] LABS: HEPATITIS PROFILE ACUTE SEE COMMENTS
[2018-12-31] MEDS: FOLIC ACID PO SCH (08:52)
[2018-12-31] MEDS: NICODERM PATCH TD SCH (08:52)
[2018-12-31] MEDS: MAG-OX PO SCH (08:52)
[2018-12-31] MEDS ORDERED: VASOTEC PO SCH (09:00)
[2018-12-31] MEDS ORDERED: TENORMIN PO SCH (09:00)
[2018-12-31] MEDS: PULMICORT INH SCH (09:56)
[2018-12-31] MEDS ORDERED: LASIX PO SCH (10:45)
[2018-12-31 13:19] VITALS: BP 113/82
[2018-12-31] MEDS ORDERED: FLU VACCINE IM ONE (13:22)
[2018-12-31] MEDS ORDERED: PNEUMOVAX 23 IM ONE (13:22)
--- NOTE | 2018-12-31 14:58 | DISCHARGE SUMMARY ---
ADMISSION DATE: 12/30/2018 DISCHARGE DATE: 12/31/2018 PERTINENT STUDIES: Chest x-ray with cardiomegaly and suspected posterior basilar pneumonia. Chest CT with severe cardiomegaly, trace pulmonary edema, nonspecific bibasilar infiltrate consistent with pneumonia or pulmonary edema. Initial WBC 13.4, discharge WBC 8.45. BNP 16,000. Urinalysis unremarkable. Initial plasma alcohol 125. Hepatitis panel negative. Initial bilirubin 1.29, discharge bilirubin 0.9, initial alkaline phosphatase 185, discharge alkaline phosphatase 169, troponin negative . DISCHARGE DIAGNOSES: 1. Likely pneumonia. 2. Chronic systolic congestive heart failure. 3. Alcoholic cardiomyopathy. 4. Alcohol abuse . 5. Chronic obstructive pulmonary disease. 6. Hypertension. 7. Hyponatremia. 8. Hyperlipidemia. 9. Transaminitis. 10. Tobacco abuse. HOSPITAL COURSE: Patient presented complaining of nonproductive cough and dyspnea for approximately a week. He stated that he had been to his PCP and been given Mucinex, steroids and Omnicef but that his symptoms did not improve. On initial evaluation in the ED there was some concern for pneumonia. CT was obtained to try to clarify but was not terribly helpful and was still somewhat uncertain between edema and pneumonia. However given patient's leukocytosis, he was placed on empiric antibiotics with Zosyn. He did improve rapidly with antibiotics overnight. His white count returned to normal. His symptoms improved markedly so pneumonia was favored as the final diagnosis. He also had some mildly elevated bilirubin and LFTs. CT of his chest did show some slight ascites but no clear liver abnormalities. This was favored to likely represent passive liver congestion related to his severe chronic systolic heart failure. On the day of discharge patient was saturating well on room air. Symptoms were markedly improved. He was transitioned to p.o. Levaquin and discharged to follow up with his PCP. He did not have any wheezing or significantly decreased air entry to suggest COPD exacerbation. DISCHARGE VITALS: Temperature 98.1 degrees, pulse 92, respirations 17, blood pressure 109/79, O2 saturation 98% on room air. DISCHARGE DIET: Cardiac. DISCHARGE MEDICATIONS: Levaquin 750 mg p.o. daily for 7 days, nicotine patch 14 mg daily as needed, Anoro Ellipta inhaler as previously prescribed, atenolol 25 mg p.o. daily, enalapril 2.5 mg p.o. daily, Lasix 40 mg p.o. daily, [place] as previously prescribed, tramadol as previously prescribed, fluticasone nasal spray once daily as needed. FOLLOWUP AND PLAN: Patient discharging home on course oral Levaquin for likely pneumonia. Patient to follow up with PCP. The patient strongly advised on alcohol and tobacco cessation.
== END 2018-12-31 14:32 | disposition home or self-care (01) ==
LOC: SUPCPDRO → ED 09:03 → INTOOBSV 12:33 → 2N 12:33
PROVIDERS: ATTEND Internal Medicine

== ENCOUNTER 2019-02-10 18:16 | Inpatient (IN) ==
[2019-02-10] MEDS ORDERED: D50W SYRINGE IV ONE ×3 (18:27→19:26)
[2019-02-10] MEDS ORDERED: D50W SYRINGE ONE (18:30)
[2019-02-10] MEDS ORDERED: GLUCAGON SUBQ ONE (18:35)
[2019-02-10] MEDS ORDERED: STERILE WATER INJ. ONE (18:45)
[2019-02-10 18:58] LABS: ALLEN TEST YES; BE -8.2 mmoll (-3.0-3.0); BLOOD TYPE ARTERIAL; HCO3-(ACT) 18.6 mmoll (20.0-26.0); METHB 0.6 % (0.0-1.5); O2HB 97.9 % (95.0-99.0); PCO2(98.6) 26 mmHg (35-45); PO2(98.6) 248 mmHg (60-100); SAMPLE BLOOD; SAO2 100.5 % (95.0-100.0); THB 11.9 g/dL (11.5-17.4); pH(98.6) 7.38 (7.35-7.45)
[2019-02-10] MEDS ORDERED: NS 1,000 ML ONE (19:01)
[2019-02-10 19:04] LABS: MODALITY NRB
[2019-02-10] MEDS ORDERED: THIAMINE 100 MG in NS 50 ML IV ONE (19:05)
[2019-02-10] MEDS ORDERED: NS 500 ML IV ONE (19:08)
[2019-02-10] MEDS ORDERED: NS 1,000 ML IV ONE ×2 (19:08→20:05)
[2019-02-10] MEDS ORDERED: MAXIPIME 2 GM in NS 100 ML IV ONE (19:08)
[2019-02-10] MEDS ORDERED: VANCOMYCIN 1 GM/NS 1 GM/250 ML IVPB IV ONE (19:08)
--- NOTE | 2019-02-10 19:36 | PROVIDER DOCUMENTATION ---
HPI-Neurological Disorder - General Chief Complaint: Altered Mental Status Stated Complaint: ams Time Seen by Provider: 02/10/19 18:30 Source: EMS Allergies/Adverse Reactions: Patient Allergies Allergy/AdvReac Type Severity Reaction Status Date / Time No Known Allergies Allergy Verified 02/10/19 19:34 Home Medications: Home Medication List Medication Instructions Recorded Confirmed Last Taken Type Unobtainable [Home Meds 02/10/19 02/10/19 Unknown History Unobtainable] - History of Present Illness-Neuro Nature of Presenting Problem: Patient is a 58 year old white male with history of alcohol abuse and GI bleed who was found unresponsive at home on floor this afternoon and noted to have blood sugar of 20 by EMS. No treatment was given by EMS. Upon arrival patient given glucagon and IV D50 with improvement of mentation. Patient noted to have black tarry stools and hyptension. IV fluid resuscitation inititated. Review of Systems - Adult - REVIEW OF SYSTEMS - ADULT ROS:: limited per condition Constitutional: reports: see HPI Cardiovascular: denies: chest pain Past History - Adult - PAST MEDICAL HISTORY-ADULT Review of Records: reports: Old Records Reviewed, Nursing Assessment Review, Medications Reviewed Major Childhood Illnesses: reports: denies history Cardiovascular: reports: arrhythmia, CAD, CHF, HTN, hyperlipidemia Respiratory: reports: COPD Gastrointestinal: reports: GERD, pancreatitis Obstetrical/Gynecological: reports: denies history Genitourinary: reports: denies history Musculoskeletal: reports: arthritis, other fractures (pt reports old rib fx) Neurological: reports: denies history Psychiatric: reports: bipolar, schizophrenia, other (Et[place] abuse) Endocrine/Immune: reports: denies history Other Conditions: reports: denies history - PRIOR SURGERIES/PROCEDURES Surgical/Procedure History: reports: cholecystectomy, orthopedic (extremity) (left ankle; L hand), other (jaw surgery) - PRIOR HOSPITALIZATIONS Prior Hospitalizations: reports: none - IMMUNIZATION STATUS Childhood Immunizations: See Nurse Assessment Flu Vaccine: See Nurse Assessment - FAMILY HISTORY Family History: reviewed, not pertinent - SOCIAL HISTORY Alcohol Use Frequency: every day Living Situation: alone Physical Exam- Neurological - Physical Exam-Neuro General Appearance: other (inititially unresponsive, now alert and agitated after IV D50W) Eye Exam: bilateral eye: PERRL HENMT: other (dry mucous membranes) Head Injury: other (facial bruising without deformities) Neck: supple Respiratory: decreased breath sounds Cardiovascular: tachycardia Abdominal Exam: non tender, soft. 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: other (nonfocal, uncooperative) Motor/Sensory: other (nonfocal) Neurologic: other (nonfocal) - Glascow Coma Scale Best Eye Response: (4) open spontaneously Best Verbal Response: (4) confused conversation Best Motor Response: (6) obeys commands Total Glascow Score: 14 Progress - PLAN OF CARE/RESULTS Progress/Plan/Lab Results: Vital Signs - 8 hr 02/10/19 18:45 02/10/19 18:48 02/10/19 19:00 Temperature Pulse Rate 100 H 102 H Respiratory Rate Blood Pressure 80/61 94/67 O2 Sat by Pulse Oximetry 95 95 83 L 02/10/19 19:15 02/10/19 19:16 02/10/19 19:20 Temperature Pulse Rate 111 H 108 H 107 H Respiratory Rate Blood Pressure 101/63 101/63 110/66 O2 Sat by Pulse Oximetry 80 L 79 L 83 L 02/10/19 19:23 02/10/19 19:26 02/10/19 19:27 Temperature Pulse Rate 108 H 110 H 109 H Respiratory Rate Blood Pressure 97/68 85/75 95/76 O2 Sat by Pulse Oximetry 80 L 78 L 79 L 02/10/19 19:33 02/10/19 19:37 02/10/19 19:38 Temperature 97.1 F L Pulse Rate 107 H 110 H 110 H Respiratory Rate 26 H Blood Pressure 101/62 48/22 91/85 O2 Sat by Pulse Oximetry 70 L 68 L 72 L 02/10/19 19:40 02/10/19 19:49 02/10/19 19:50 Temperature Pulse Rate 109 H 112 H 112 H Respiratory Rate Blood Pressure 111/75 101/71 101/77 O2 Sat by Pulse Oximetry 79 L 80 L 81 L 02/10/19 19:59 02/10/19 20:00 02/10/19 20:01 Temperature Pulse Rate 114 H 113 H 114 H Respiratory Rate Blood Pressure 103/71 100/69 O2 Sat by Pulse Oximetry 100 100 100 02/10/19 20:05 02/10/19 20:10 02/10/19 20:36 Temperature Pulse Rate 113 H 113 H 112 H Respiratory Rate Blood Pressure 111/68 112/65 O2 Sat by Pulse Oximetry 98 97 97 02/10/19 20:37 02/10/19 20:43 02/10/19 20:45 Temperature Pulse Rate 114 H 116 H 113 H Respiratory Rate Blood Pressure 137/106 103/70 110/77 O2 Sat by Pulse Oximetry 97 97 97 02/10/19 20:51 02/10/19 20:55 02/10/19 20:58 Temperature Pulse Rate 111 H 110 H 111 H Respiratory Rate Blood Pressure 110/65 104/73 99/64 O2 Sat by Pulse Oximetry 97 97 99 02/10/19 21:00 02/10/19 21:05 02/10/19 21:10 Temperature Pulse Rate 111 H 115 H 110 H Respiratory Rate 31 H Blood Pressure 104/73 112/78 114/77 O2 Sat by Pulse Oximetry 99 98 98 02/10/19 21:15 Temperature Pulse Rate 109 H Respiratory Rate 33 H Blood Pressure 107/65 O2 Sat by Pulse Oximetry 98 02/10/19 19:07 Stool Occult Blood (TYRESE) - Final Stool Laboratory Results - last 24 hr 02/10/19 02/10/19 02/10/19 18:24 18:53 19:16 WBC RBC Hgb Hct MCV MCH MCHC RDW Std Deviation Plt Count MPV Immature Gran % (Auto) Neut % (Auto) Lymph % (Auto) Twiggs % (Auto) Eos % (Auto) Baso % (Auto) Immature Gran # (Auto) Neut # (Auto) Lymph # (Auto) Twiggs # (Auto) Eos # (Auto) Baso # (Auto) Corrected WBC (Man) PT INR PTT (Actin FS) Specimen Type ARTERIAL Sample Site L RADIAL pH 7.38 pCO2 26 L pO2 248 H HCO3 18.6 L Base Excess -8.2 L Oxyhemoglobin 97.9 ABG O2 Sat (Calculated) 17.0 ABG O2 Saturation 100.5 H ABG Carboxyhemoglobin 2.00 ABG Methemoglobin 0.6 Car Test YES A-a O2 Difference 433.0 Total Hemoglobin 11.9 Lactate 5.10 H* Blood Gas Modality NRB FiO2 % 100.0 Sodium Potassium Chloride Carbon Dioxide Anion Gap BUN Creatinine Estimated GFR/1.73 m2 BUN/Creatinine Ratio Glucose POC Glucose 20 L D Calculated Osmolality Calcium Magnesium Total Bilirubin AST ALT Alkaline Phosphatase Creatine Kinase Creatine Kinase Index CK-MB (CK-2) Troponin T Total Protein Albumin Globulin Albumin/Globulin Ratio Plasma Lactate Digoxin Plasma/Serum Ethyl Alc Blood Type Blood Type Confirm Antibody Screen 02/10/19 02/10/19 02/10/19 19:16 19:16 19:16 WBC Cancelled RBC Cancelled Hgb Cancelled Hct Cancelled MCV Cancelled MCH Cancelled MCHC Cancelled RDW Std Deviation Cancelled Plt Count Cancelled MPV Cancelled Immature Gran % (Auto) Cancelled Neut % (Auto) Cancelled Lymph % (Auto) Cancelled Twiggs % (Auto) Cancelled Eos % (Auto) Cancelled Baso % (Auto) Cancelled Immature Gran # (Auto) Cancelled Neut # (Auto) Cancelled Lymph # (Auto) Cancelled Twiggs # (Auto) Cancelled Eos # (Auto) Cancelled Baso # (Auto) Cancelled Corrected WBC (Man) Cancelled PT INR PTT (Actin FS) Specimen Type Sample Site pH pCO2 pO2 HCO3 Base Excess Oxyhemoglobin ABG O2 Sat (Calculated) ABG O2 Saturation ABG Carboxyhemoglobin ABG Methemoglobin Car Test A-a O2 Difference Total Hemoglobin Lactate Blood Gas Modality FiO2 % Sodium Potassium Chloride Carbon Dioxide Anion Gap BUN Creatinine Estimated GFR/1.73 m2 BUN/Creatinine Ratio Glucose POC Glucose Calculated Osmolality Calcium Magnesium Total Bilirubin AST ALT Alkaline Phosphatase Creatine Kinase Creatine Kinase Index CK-MB (CK-2) Troponin T Total Protein Albumin Globulin Albumin/Globulin Ratio Plasma Lactate Digoxin Cancelled Plasma/Serum Ethyl Alc Blood Type AB POSITIVE Blood Type Confirm Antibody Screen NEGATIVE 02/10/19 02/10/19 02/10/19 19:20 19:20 19:20 WBC RBC Hgb Hct MCV MCH MCHC RDW Std Deviation Plt Count MPV Immature Gran % (Auto) Neut % (Auto) Lymph % (Auto) Twiggs % (Auto) Eos % (Auto) Baso % (Auto) Immature Gran # (Auto) Neut # (Auto) Lymph # (Auto) Tw[place]gs # (Auto) Eos # (Auto) Baso # (Auto) Corrected WBC (Man) PT INR PTT (Actin FS) Specimen Type Sample Site pH pCO2 pO2 HCO3 Base Excess Oxyhemoglobin ABG O2 Sat (Calculated) ABG O2 Saturation ABG Carboxyhemoglobin ABG Methemoglobin Car Test A-a O2 Difference Total Hemoglobin Lactate Blood Gas Modality FiO2 % Sodium Potassium Chloride Carbon Dioxide Anion Gap BUN Creatinine Estimated GFR/1.73 m2 BUN/Creatinine Ratio Glucose POC Glucose 20 L Calculated Osmolality Calcium Magnesium Total Bilirubin AST ALT Alkaline Phosphatase Creatine Kinase Creatine Kinase Index CK-MB (CK-2) Troponin T Cancelled Total Protein Albumin Globulin Albumin/Globulin Ratio Plasma Lactate Cancelled Digoxin Plasma/Serum Ethyl Alc Blood Type Blood Type Confirm Antibody Screen 02/10/19 02/10/19 02/10/19 19:26 19:47 20:07 WBC RBC Hgb Hct MCV MCH MCHC RDW Std Deviation Plt Count MPV Immature Gran % (Auto) Neut % (Auto) Lymph % (Auto) [place] % (Auto) Eos % (Auto) Baso % (Auto) Immature Gran # (Auto) Neut # (Auto) Lymph # (Auto) [place] # (Auto) Eos # (Auto) Baso # (Auto) Corrected WBC (Man) PT INR PTT (Actin FS) Specimen Type Sample Site pH pCO2 pO2 HCO3 Base Excess Oxyhemoglobin ABG O2 Sat (Calculated) ABG O2 Saturation ABG Carboxyhemoglobin ABG Methemoglobin Car Test A-a O2 Difference Total Hemoglobin Lactate Blood Gas Modality FiO2 % Sodium Potassium Chloride Carbon Dioxide Anion Gap BUN Creatinine Estimated GFR/1.73 m2 BUN/Creatinine Ratio Glucose POC Glucose 52 L D 397 H D Calculated Osmolality Calcium Magnesium Total Bilirubin AST ALT Alkaline Phosphatase Creatine Kinase Creatine Kinase Index CK-MB (CK-2) Troponin T Total Protein Albumin Globulin Albumin/Globulin Ratio Plasma Lactate Digoxin Plasma/Serum Ethyl Alc Blood Type Blood Type Confirm AB POSITIVE Antibody Screen 02/10/19 02/10/19 02/10/19 20:08 20:49 20:49 WBC 15.67 H RBC 3.55 L Hgb 10.3 L Hct 31.3 L MCV 88.2 MCH 29.0 MCHC 32.9 L RDW Std Deviation 15.6 H Plt Count 114 L MPV 11.5 H Immature Gran % (Auto) 0.6 H Neut % (Auto) 85.4 H Lymph % (Auto) 7.7 L Twiggs % (Auto) 6.3 Eos % (Auto) 0.0 Baso % (Auto) 0.0 Immature Gran # (Auto) 0.10 H Neut # (Auto) 13.37 H Lymph # (Auto) 1.21 Twiggs # (Auto) 0.99 H Eos # (Auto) 0.00 Baso # (Auto) 0.00 Corrected WBC (Man) PT 38.0 H INR 3.71 PTT (Actin FS) 50.1 H Specimen Type Sample Site pH pCO2 pO2 HCO3 Base Excess Oxyhemoglobin ABG O2 Sat (Calculated) ABG O2 Saturation ABG Carboxyhemoglobin ABG Methemoglobin Car Test A-a O2 Difference Total Hemoglobin Lactate Blood Gas Modality FiO2 % Sodium 124 L Potassium 5.7 H Chloride 89 L Carbon Dioxide 15 L Anion Gap 20 BUN 42 H Creatinine 2.3 H Estimated GFR/1.73 m2 29 BUN/Creatinine Ratio 18 Glucose 267 H POC Glucose Calculated Osmolality 269 Calcium 7.1 L Magnesium 1.6 Total Bilirubin 3.95 H AST 1861 H ALT 678 H Alkaline Phosphatase 104 Creatine Kinase 08099 H Creatine Kinase Index 1.8 CK-MB (CK-2) 180.80 H Troponin T Total Protein 5.5 L Albumin 3.1 L Globulin 2.4 Albumin/Globulin Ratio 1.3 Plasma Lactate Digoxin Plasma/Serum Ethyl Alc Blood Type Blood Type Confirm Antibody Screen 02/10/19 02/10/19 20:49 20:49 WBC RBC Hgb Hct MCV MCH MCHC RDW Std Deviation Plt Count MPV Immature Gran % (Auto) Neut % (Auto) Lymph % (Auto) [place] % (Auto) Eos % (Auto) Baso % (Auto) Immature Gran # (Auto) Neut # (Auto) Lymph # (Auto) [place] # (Auto) Eos # (Auto) Baso # (Auto) Corrected WBC (Man) PT INR PTT (Actin FS) Specimen Type Sample Site pH pCO2 pO2 HCO3 Base Excess Oxyhemoglobin ABG O2 Sat (Calculated) ABG O2 Saturation ABG Carboxyhemoglobin ABG Methemoglobin Car Test A-a O2 Difference Total Hemoglobin Lactate Blood Gas Modality FiO2 % Sodium Potassium Chloride Carbon Dioxide Anion Gap BUN Creatinine Estimated GFR/1.73 m2 BUN/Creatinine Ratio Glucose POC Glucose Calculated Osmolality Calcium Magnesium Total Bilirubin AST ALT Alkaline Phosphatase Creatine Kinase Creatine Kinase Index CK-MB (CK-2) Troponin T 0.120 H Total Protein Albumin Globulin Albumin/Globulin Ratio Plasma Lactate 4.5 H* Digoxin Plasma/Serum Ethyl Alc Blood Type Blood Type Confirm Antibody Screen Orders Category Date Time Status Cardiac Monitoring DIRECTED Care 02/10/19 18:28 Active FSBS/Accucheck Result Q15M Care 02/10/19 19:08 Active Gonzáles Cath Insertion ORDERED Care 02/10/19 19:09 Active IV Insertion ORDERED Care 02/10/19 19:09 Active Intake and Output-Strict ORDERED Care 02/10/19 19:09 Active Misc. NRSG Communication Order DIRECTED Care 02/10/19 19:11 Active Notify MD/PA/DANK for exam NOW Care 02/10/19 19:09 Active Nursing- MD Consult Request ROUTINE Care 02/10/19 20:47 Active Oxygen Therapy- ED Nursing DIRECTED Care 02/10/19 18:28 Active Repeat Vital Signs .Blood Pressure Care 02/10/19 19:09 Active Repeat Vital Signs .Heart Rate Care 02/10/19 19:09 Active Repeat Vital Signs .Oxygen Saturation Care 02/10/19 19:09 Active Repeat Vital Signs .Respiratory Rate Care 02/10/19 19:09 Active Repeat Vital Signs .Temp Care 02/10/19 19:09 Active Saline Loc NOW Care 02/10/19 18:28 Active Physician/Provider Consults Routine Cons 02/10/19 20:46 Ordered CHEST-PORTABLE [RAD] Stat Exams 02/10/19 18:[address] ADDITNL MPLANAR/3D RECONST [CT] Stat Exams 02/10/19 19:[address] HEAD/C-SPINE W/O CONTRAST [CT] Stat Exams 02/10/19 19:[address] THORAX/ABD/PELVIS W/O CON [CT] Stat Exams 02/10/19 19:16 Completed ABG [RESP] Routine Lab 02/10/19 18:53 Completed ALCOHOL BLOOD Stat Lab 02/10/19 19:16 Completed BLOOD CULTURE [BLDCUL] Stat Lab 02/10/19 19:20 Results CBC WITH ELECTRONIC DIFF [HEME] Stat Lab 02/10/19 20:08 Completed CK PROFILE [SP CHEM] Stat Lab 02/10/19 20:49 Completed COMPREHENSIVE METABOLIC PANEL [CHEM] Stat Lab 02/10/19 20:49 Completed DIGOXIN [TDM] Stat Lab 02/10/19 20:49 Received LACTATE, PLASMA [CHEM] Stat Lab 02/10/19 20:49 Completed MAGNESIUM [CHEM] Stat Lab 02/10/19 20:49 Completed PROTIME WITH INR [COAG] Stat Lab 02/10/19 20:49 Completed PTT [COAG] Stat Lab 02/10/19 20:49 Completed Stool [OCCULT BLOOD SCREENING] [STOOL] Stat Lab 02/10/19 19:07 Completed TROPONIN T Stat Lab 02/10/19 20:49 Completed TYPE & SCREEN [BBK] Stat Lab 02/10/19 19:16 Completed URINALYSIS [URINALYSIS] Stat Lab 02/10/19 18:28 Uncollected URINE DRUG SCREEN Stat Lab 02/10/19 18:28 Uncollected 0.9% Sodium Chloride Inj [Ns] 1,000 ml Med 02/10/19 19:01 Discontinued .ROUTE As directed 0.9% Sodium Chloride Inj [Ns] 1,000 ml Med 02/10/19 20:05 Discontinued IV 999 mls/hr 0.9% Sodium Chloride Inj [Ns] 1,000 ml Med 02/10/19 19:08 Discontinued IV As Directed mls/hr 0.9% Sodium Chloride Inj [Ns] 500 ml Med 02/10/19 19:08 Discontinued IV 999 mls/hr CefEPIME [Maxipime] 2 gm Med 02/10/19 19:08 Discontinued 0.9% Sodium Chloride Inj [Ns] 100 ml IV NOW Dextrose 50% Syringe [D50w Syringe] Med 02/10/19 18:30 Discontinued 50 ml .ROUTE .STK-MED ONE Dextrose 50% Syringe [D50w Syringe] Med 02/10/19 18:27 Discontinued 50 ml IV NOW ONE Dextrose 50% Syringe [D50w Syringe] Med 02/10/19 19:06 Discontinued 50 ml IV NOW ONE Dextrose 50% Syringe [D50w Syringe] Med 02/10/19 19:26 Discontinued 50 ml IV NOW ONE Etomidate [Amidate] Med 02/10/19 20:17 Discontinued 10 mg IV NOW ONE Etomidate [Amidate] Med 02/10/19 20:24 Discontinued 40 mg .ROUTE .STK-MED ONE Glucagon Med 02/10/19 18:35 Discontinued 1 mg SUBQ NOW ONE Pantoprazole [Protonix] Med 02/10/19 19:57 Discontinued 40 mg IV NOW ONE Sodium Bicarbonate 8.4% Med 02/10/19 21:45 Discontinued 50 meq IV PUSH NOW ONE Sodium Chloride 0.9% Med 02/10/19 19:57 Discontinued 10 ml INJ NOW ONE Thiamine 100 mg Med 02/10/19 19:05 Discontinued 0.9% Sodium Chloride Inj [Ns] 50 ml IV NOW Vancomycin 1 gm/Ns Med 02/10/19 19:08 Discontinued 1 gm in 250 ml IV NOW Water, Sterile Inj [Sterile Water Inj.] Med 02/10/19 18:45 Discontinued 10 ml .ROUTE .STK-MED ONE Altered Mental Status Stat Oth 02/10/19 18:27 Ordered EKG [EKG] Stat Ther 02/10/19 18:28 Ordered Transfer/Admit Order [TRANSFER] Routine Transfer 02/10/19 21:43 Ordered Result Diagrams: 02/10/19 20:08 02/10/19 20:49 Departure - Departure Date of Disposition Decision: 02/10/19 Time of Disposition Decision: 21:53 DIAGNOSIS: Hypoglycemia, Alcohol abuse, Elevated liver enzymes, Tachycardia, Hyperkalemia, SAUL (acute kidney injury), Lactic acidosis, Coagulopathy GI bleed Qualifiers: GI bleed type/associated pathology: melena Qualified Code(s): K92.1 - Melena Rhabdomyolysis Qualifiers: Rhabdomyolysis type: traumatic Encounter type: initial encounter Qualified Code(s): T79.6XXA - Traumatic ischemia of muscle, initial encounter Disposition: ADMITTED INPATIENT 09 Certified Medical Emergency: Emergent Condition: Critical Referrals and Follow-Ups: None,PCP [Primary Care Provider] - Discharge Education: Steps to Quit Smoking, [id number] - Critical Care Note This patient required my direct & personal management of CC.: Yes Total Time (mins): 155 Critical Care Statement: This patient required my direct personal management to treat or rule out processes, the absence of which, could potentiallly result in sudden, clinically significant life or limb threatening deterioration. Attestation - Physician/ MARY Attestation Patient care was provided by Advanced Practice Provider:: No The physician spent face to face time with patient:: Yes Advanced Practice Provider documentation review:: Supervising physician onsite and consulted in the evaluation and care of this patient. The physician did have a face to face encounter with the patient.
--- NOTE | 2019-02-10 19:46 | Diag Imaging Result Doc PS360 ---
EXAM: CHEST-PORTABLE INDICATION: altered, found on floor TECHNIQUE: One view COMPARISON: 12/30/2018 FINDINGS: There is a small airspace infiltrate at the right lung base. It is fairly similar to the previous study. There is no discrete pleural fluid collection or pneumothorax. There is stable cardiomegaly. Central vasculature is unremarkable. IMPRESSION: Small right basilar infiltrate as described. Electronically signed by Han Kumar 02/10/2019 7:44 PM
[2019-02-10] MEDS ORDERED: PROTONIX IV ONE (19:57)
[2019-02-10] MEDS ORDERED: SODIUM CHLORIDE 0.9% INJ ONE (19:57)
[2019-02-10] MEDS ORDERED: AMIDATE IV ONE (20:17)
[2019-02-10] MEDS ORDERED: AMIDATE ONE (20:24)
[2019-02-10 20:29] LABS: HEMATOCRIT 31.3 % (42.0-52.0); HEMOGLOBIN 10.3 g/dL (14.0-18.0); IMM GRAN% 0.6 % (0.0-0.5); LYMPH# 1.21 X1000 (1.2-3.4); LYMPH% 7.7 % (20.5-51.1); MCHC 32.9 g/dL (33-37); MCV 88.2 FL (81-99); MONO# 0.99 X1000 (0.11-0.59); MONO% 6.3 % (1.7-9.3); MPV 11.5 FL (7.4-10.4); NEUT# 13.37 X1000 (1.4-6.5); NEUT% 85.4 % (42.2-75.2); PLT 114 X1000 (130-400); RBC 3.55 XMIL (4.7-6.1); RDW 15.6 % (11.5-14.5); WBC 15.67 X1000 (4.8-10.8)
[2019-02-10 21:03] LABS: INR 3.71
[2019-02-10 21:04] LABS: PTT 50.1 Seconds (22.3-41.8)
--- NOTE | 2019-02-10 21:09 | Diag Imaging Result Doc PS360 ---
EXAM: CT THORAX/ABD/PELVIS W/O CON INDICATION: FALL TECHNIQUE: This exam was performed using automated exposure control, adjustment of mA or kV according to patient size, and/or use of iterative reconstruction technique. COMPARISON: CT chest dated 12/30/[address] abdomen and pelvis dated 03/03/2017 FINDINGS: CHEST: There are mild emphysematous changes at the lung apices. There are patchy airspace infiltrates consistent with multilobar pneumonia in both lower lobes near the bases. However, they have improved since the previous study. There are now small patchy infiltrates at the posterior aspect of the upper lobes as well. There are very small bilateral pleural effusions. There is stable marked cardiomegaly. There is a significant amount of fluid in the retropharyngeal space that is nonspecific. It is unclear if it is related,. However, note that there is generalized soft tissue edema subcutaneously, especially at the left side of the chest. There are several droplets of gas in the soft tissues on the left. These droplets are probably in small vessels that may have been introduced by IV. There is no pneumothorax. There is only trace pericardial fluid. There are calcified mediastinal lymph nodes indicating prior granulomatous disease. The visualized bony structures of the thorax are grossly intact. Abdomen/pelvis: There has been a prior cholecystectomy. There is trace free fluid tracking around the liver and layering in the pelvis. The liver, spleen, pancreas, adrenal glands, and kidneys are grossly unremarkable as imaged with unenhanced CT. There is a Gonzáles catheter in the urinary bladder and the bladder is nondistended. The appendix is normal. The remainder of the GI tract is grossly unremarkable. The bony structures of the abdomen and pelvis are grossly intact. IMPRESSION: 1.Multilobar pneumonia as described that has overall improved since the prior CT chest, especially at the lower lobes. 2.Significant amount of fluid in the retropharyngeal space that is nonspecific. It is unclear if it is related to trauma. However, there is a significant amount of soft tissue anasarca elsewhere. 3.A few small droplets of gas in the soft tissues at the left side of the neck that are probably in small vessels, probably having been introduced during IV access. 4.Very small volume ascites tracking around the liver and layering in the pelvis. 5.Other incidental/nonacute findings detailed above. Electronically signed by Han Kumar 02/10/2019 9:07 PM
--- NOTE | 2019-02-10 21:09 | Diag Imaging Result Doc PS360 ---
EXAM: CT HEAD/C-SPINE W/O CONTRAST INDICATION: FALL(combined orders per Dr Sepulveda) TECHNIQUE: This exam was performed using automated exposure control, adjustment of mA or kV according to patient size, and/or use of iterative reconstruction technique. COMPARISON: None. FINDINGS: Head: There is left occipital lobe encephalomalacia indicating a chronic infarct. However, it has developed since the previous study. There is no definite acute infarct given the limited sensitivity of CT versus MRI. There is no discrete intracranial mass, mass effect, or intracranial hemorrhage. There is extensive paranasal sinus mucosal disease with subtotal opacification of the left maxillary sinus. Surrounding soft tissues and bony structures are essentially unremarkable, otherwise. The calvaria is intact. C-spine: There is extensive motion artifact throughout the cervical spine. This may significantly limit sensitivity for detection of small fractures. There is facet arthropathy at C3-4 on the left. This is causing mild anterolisthesis of C3 on C4 that is stable as compared to a prior C-spine CT dated 06/06/2015. No discrete fracture, subluxation, or intrinsic osseous lesion, otherwise, given the limitations of the motion artifact. However, there is thickening of the prevertebral soft tissues. This can be associated with occult cervical injuries. However, there is also soft tissue edema superficially at the posterior aspect of the neck of this edema could be generalized. Please correlate clinically. IMPRESSION: 1.Left occipital lobe encephalomalacia but no evidence of acute intracranial pathology. 2.Pansinusitis. 3.Limited cervical spine due to excessive motion artifact. 4.Stable degenerative changes at C3-4. 5.Nonspecific prevertebral soft tissue thickening as well as subcutaneous edema at the posterior aspect of the neck. Please see the above discussion. 6.No discrete fracture is identified given the limitations of the study. Electronically signed by Han Kumar 02/10/2019 9:07 PM
--- NOTE | 2019-02-10 21:22 | Diag Imaging Result Doc PS360 ---
EXAM: CT ADDITNL MPLANAR/3D RECONST (T-spine and L-spine) INDICATION: fall (t and l-spine recons per Dr Sepulveda) TECHNIQUE: This exam was performed using automated exposure control, adjustment of mA or kV according to patient size, and/or use of iterative reconstruction technique. Note that these images are thin section reformats from earlier CTs of the chest, abdomen, and pelvis. COMPARISON: None. FINDINGS: T-spine: There is a small chronic Schmorl's node at the superior endplate of T10 on the left. The thoracic vertebral body heights are well-maintained, otherwise. There is no evidence of fracture, subluxation, or significant intrinsic osseous lesion, otherwise. The central canal appears to be grossly patent. The paraspinal soft tissues are unremarkable. L-spine: There is no evidence of fracture, subluxation, or significant intrinsic osseous lesion involving the L-spine. The central canal appears to be patent. The vertebral body heights are maintained. The paraspinal soft tissues are unremarkable. IMPRESSION: No evidence of fracture or other definite acute injury involving the T-spine or L-spine. Electronically signed by Han Kumar 02/10/2019 9:19 PM
[2019-02-10 21:24] LABS: ALB/GLOB RATIO 1.3; ALBUMIN 3.1 g/dL (3.5-5.0); CALCIUM 7.1 mg/dL (8.8-10.2); CREATININE 2.3 mg/dL (0.7-1.2); MAGNESIUM 1.6 mg/dL (1.5-2.7); POTASSIUM 5.7 mmol/L (3.5-5.1); TOTAL BILIRUBIN 3.95 mg/dL (0.20-1.00); TOTAL PROTEIN 5.5 g/dL (6.3-8.3)
[2019-02-10 21:39] LABS: CK INDEX 1.8 (0.0-2.5); CK-MB 180.8 ng/mL (0.0-5.0)
[2019-02-10] MEDS ORDERED: SODIUM BICARBONATE 8.4% IV PUSH ONE ×2 (21:45→22:06)
[2019-02-10] MEDS ORDERED: VITAMIN K SUBQ ONE (21:51)
[2019-02-10] MEDS ORDERED: ATIVAN IV ONE (21:57)
[2019-02-10] MEDS ORDERED: ZOFRAN IV PRN (23:08)
[2019-02-10] MEDS ORDERED: VANCOMYCIN IV PER PHARMACY MISC SCH (23:08)
[2019-02-10] MEDS: PROTONIX IV SCH ×2 (23:44→23:48)
[2019-02-10] MEDS: ZOSYN 3.375 GM in NS 50 ML IV SCH (23:44)
[2019-02-10] MEDS: NS 1,000 ML IV SCH (23:44)
--- NOTE | 2019-02-11 01:30 | HISTORY AND PHYSICAL ---
PRIMARY CARE PHYSICIAN: Dr. Mariajose Jang. CHIEF COMPLAINT: Found unresponsive. HISTORY OF PRESENTING ILLNESS: A 58-year-old male with a history of CHF with EF of 15%, nonischemic cardiomyopathy, hypertension, COPD, chronic alcoholism, who was found at his home unresponsive. When EMS arrived, he was noted to have a blood glucose of 20. He was given an amp of D50 and he had some improvement in his mentation. The patient was also noted to have black, tarry stools and also was hypotensive. He was evaluated in the ED. He was given IV fluids and due to his overall presenting symptoms he will require admission to ICU for further management. The patient is a poor historian, will only answer a few questions and most of the history is obtained from the ER charting and previous records. PAST MEDICAL HISTORY: Includes CHF with EF 15%, hypertension, COPD, chronic alcoholism, nonischemic cardiomyopathy, hyperlipidemia. PAST SURGICAL HISTORY: Cholecystectomy, left hand and foot surgery, jaw surgery. ALLERGIES: No known drug allergies. CURRENT MEDICATIONS: He does not recall and nursing staff will reconcile. SOCIAL HISTORY: 40+ pack years history of smoking. History of alcohol use daily. History of marijuana use occasionally. FAMILY HISTORY: Positive for coronary artery disease in father. REVIEW OF SYSTEMS: Limited. PHYSICAL EXAMINATION: GENERAL: Lethargic male. He is resting more comfortably now. Patient seems disheveled. VITAL SIGNS: Pulse 114, respiration 18, blood pressure 137/106. HEENT: Atraumatic, normocephalic. Extraocular movements intact. PERRLA. NECK: No masses. CHEST: Rhonchi. CARDIOVASCULAR: Regular rate and rhythm. ABDOMEN: Soft, positive bowel sounds. EXTREMITIES: No edema. NEUROLOGIC: He is awake, alert, oriented x1. GENITOURINARY: No bladder distention. SKIN: Warm. LABORATORIES AND STUDIES: WBCs 15.67, hemoglobin 10.3, hematocrit 31.3, platelets 114,000. INR is 3.71. Sodium 124, potassium 5.7, chloride 89, CO2 is 15, BUN is 42, creatinine is 2.3, glucose initially was 20 , magnesium 1.6, AST 1861, ALT 678. Creatine kinase 10,168. Plasma lactate 4.5. CT of the head, no acute intracranial pathology. Chest x-ray shows multilobar pneumonia. ASSESSMENT: A 58-year-old male with a history of congestive heart failure, hypertension, chronic obstructive pulmonary disease, chronic alcoholism, who was brought to the emergency department due to patient being unresponsive. Initially when EMS arrived, he was found to be hypoglycemic with a blood glucose in the 20s. He was given amp of D50. He had some improvement. He was also found to be hypotensive with a blood pressure of 80s and also was found to have black, tarry stools. Due to his presenting symptoms, he will require ICU admission for further management. 1. Altered mental status. 2. Hypoglycemia. 3. Acute rhabdomyolysis. 4. Acute kidney injury. 5. Probable pneumonia. 6. Suspected sepsis. 7. Abnormal liver function tests. 8. Suspected gastrointestinal bleed. 9. Congestive heart failure. PLAN: 1. We will admit patient to ICU. 2. Continue with neuro checks. 3. Monitor blood glucose closely. 4. Continue with IV fluids gently. 5. Monitor his renal function. 6. We will check blood cultures. Start patient on IV antibiotics. 7. We will check abdominal ultrasound. 8. We will consult Gastroenterology for evaluation of his GI bleed. 9. We will put patient on DVT prophylaxis with SCDs. 10. We will continue to follow, and reassess and make further recommendation based on patient's clinical course. Patient's condition is guarded. cc: Deric Auguste MD MTDD
[2019-02-11 02:04] LABS: URINE SOURCE CLEAN CATCH
[2019-02-11 02:08] LABS: BILIRUBIN URINE SMALL (NEGATIVE); BLOOD URINE LARGE (NEGATIVE); COLOR YELLOW; GLUCOSE URINE NEGATIVE (NEGATIVE); KETONE URINE TRACE mg/dL (NEGATIVE); LEUKOCYTES URINE NEGATIVE (NEGATIVE); NITRITE URINE NEGATIVE (NEGATIVE); PH URINE 5.5; PROTEIN URINE 70 mg/dL (NEGATIVE); SP GRAVITY URINE 1.018; TURBIDITY URINE HAZY (CLEAR); UROBILINOGEN URINE NORMAL (NORMAL)
[2019-02-11] MEDS ORDERED: NS IV ONE (02:30)
[2019-02-11] MEDS ORDERED: VANCOMYCIN IV ONE (02:30)
[2019-02-11 02:31] LABS: UR AMPHETAMINES QUAL NONE DETECTED (NONE DETECT); UR BARBITUATES QUAL NONE DETECTED (NONE DETECT); UR BENZODIAZEPIN QUAL NONE DETECTED (NONE DETECT); UR CANNABINOIDS QUAL PRESUMPTIVE POSITIVE (NONE DETECT); UR COCAINE QUAL NONE DETECTED (NONE DETECT); UR EPITHELIAL CELLS <10 /HPF (<10); UR METHADONE QUAL NONE DETECTED (NONE DETECT); UR OPIATES QUAL NONE DETECTED (NONE DETECT); UR OXYCODONE QUAL NONE DETECTED (NONE DETECT); UR PCP QUAL NONE DETECTED (NONE DETECT); URINE BACTERIA NEGATIVE /HPF; URINE RBC TNTC /HPF (<10); URINE WBC 20-40 /HPF (<10)
[2019-02-11 02:47] LABS: URINE CASTS GRANULAR PRESENT; URINE CRYSTALS NONE SEEN; URINE SMALL ROUND CELLS NONE SEEN; URINE YEAST NONE SEEN
[2019-02-11] MEDS: ZOSYN 3.375 GM in NS 50 ML IV SCH ×4 (05:06→23:44)
[2019-02-11 05:11] LABS: ALLEN TEST YES; BE -3.1 mmoll (-3.0-3.0); BLOOD TYPE ARTERIAL; HCO3-(ACT) 22.5 mmoll (20.0-26.0); METHB 0.4 % (0.0-1.5); O2(CT) 15.1 mL/dL (15.0-23.0); O2HB 95.9 % (95.0-99.0); PCO2(98.6) 33 mmHg (35-45); PO2(98.6) 84 mmHg (60-100); SAMPLE BLOOD; SAO2 98.5 % (95.0-100.0); THB 11.1 g/dL (11.5-17.4); pH(98.6) 7.41 (7.35-7.45)
[2019-02-11 05:12] LABS: MODALITY CANNULA
[2019-02-11] MEDS: ATIVAN IV PRN ×4 (05:39→23:45)
[2019-02-11 06:04] LABS: HEMATOCRIT 31.7 % (42.0-52.0); HEMOGLOBIN 10.6 g/dL (14.0-18.0); IMM GRAN# 0.05 X1000 (0.0-0.04); IMM GRAN% 0.4 % (0.0-0.5); LYMPH# 0.72 X1000 (1.2-3.4); LYMPH% 6.3 % (20.5-51.1); MCH 28.8 PG (27-31); MCHC 33.4 g/dL (33-37); MCV 86.1 FL (81-99); MONO# 0.56 X1000 (0.11-0.59); MONO% 4.9 % (1.7-9.3); MPV 11.3 FL (7.4-10.4); NEUT# 10.06 X1000 (1.4-6.5); NEUT% 88.4 % (42.2-75.2); PLT 93 X1000 (130-400); RBC 3.68 XMIL (4.7-6.1); RDW 15.6 % (11.5-14.5); WBC 11.39 X1000 (4.8-10.8)
[2019-02-11 06:50] LABS: CALCIUM 7.2 mg/dL (8.8-10.2); CREATININE 2.1 mg/dL (0.7-1.2); POTASSIUM 4.6 mmol/L (3.5-5.1)
[2019-02-11 07:54] LABS: BANDS 10 % (0-1); LYMPHS 8 % (21-51); MONO 2 % (1-9); NRBC 1 % (0-0); SEGS 80 % (42-75)
[2019-02-11 08:24] LABS: ALB/GLOB RATIO 1.5; ALBUMIN 3.2 g/dL (3.5-5.0); DIRECT BILIRUBIN 2.8 mg/dL (0.00-0.20); TOTAL PROTEIN 5.4 g/dL (6.3-8.3)
[2019-02-11] MEDS: SODIUM CHLORIDE 0.9% INJ SCH (10:53)
[2019-02-11] MEDS: PROTONIX IV SCH ×2 (10:53→23:44)
[2019-02-11 14:37] LABS: URINE SOURCE CATH
[2019-02-11 14:39] LABS: BILIRUBIN URINE NEGATIVE (NEGATIVE); BLOOD URINE LARGE (NEGATIVE); COLOR YELLOW; GLUCOSE URINE NEGATIVE (NEGATIVE); KETONE URINE TRACE mg/dL (NEGATIVE); LEUKOCYTES URINE NEGATIVE (NEGATIVE); NITRITE URINE NEGATIVE (NEGATIVE); PROTEIN URINE 70 mg/dL (NEGATIVE); SP GRAVITY URINE 1.021; TURBIDITY URINE HAZY (CLEAR); UROBILINOGEN URINE NORMAL (NORMAL)
[2019-02-11 14:41] LABS: UR EPITHELIAL CELLS <10 /HPF (<10); URINE BACTERIA NEGATIVE /HPF; URINE RBC TNTC /HPF (<10); URINE WBC <10 /HPF (<10)
--- NOTE | 2019-02-11 14:44 | PROGRESS NOTE ---
DATE: 02/11/2019 INTERVAL HISTORY: Mr. Colunga was admitted as he was found unresponsive the etiology of which was unclear except that he had hypoglycemia. He was resuscitated with intravenous fluids. On arrival, he was found to be tachycardic, hypoxic, and had anemia, thrombocytopenia. Since then has not had any overnight events. SUBJECTIVE: The patient is lethargic and does not answer questions appropriately. He occasionally moans and groans. VITAL SIGNS: He has been afebrile. Temperature 98.1 degrees, pulse 114, respiratory rate 32, blood pressure 106/78. He is saturating 96% on 35% BiPAP at the moment. PHYSICAL EXAMINATION: Lethargic. He resists eye opening. He has a BiPAP mask, urine catheter. Could not examine oral cavity.Lungs: Air entry bilaterally equal. No wheeze, rhonchi, crackles. Cardiovascular: S1, S2 normal. Tachycardic, regular rhythm on bedside monitor. No murmur, rub, or gallop. Abdomen: Soft. He has voluntary guarding and right upper quadrant tenderness. Active bowel sounds. Extremities: No lower extremity edema. He has bruise bilateral knee joint. He is moving all extremities to painful stimuli. Stops spontaneously, but does not verbalize. Reflexes are 2+. LABS: Suggestive of leukocytosis, normocytic anemia, thrombocytopenia, elevated INR. Blood gas suggestive of no acidosis, lactic acidosis, though, which appears compensated. Chemistry suggestive of lactic acidosis, hyponatremia, hypochloremia, hyperkalemia, acute kidney injury, transaminitis, elevated total bilirubin, rhabdomyolysis, hematuria and pyuria. One of the 2 blood cultures is growing gram negative rods. Stool occult blood test was positive. REVIEW OF MEDICATIONS: On the chart and physical chart, it was listed that he had 2 nonsteroidal anti-inflammatory drugs, Mobic and Sulindac that he was taking. IMAGING: Chest, abdomen pelvis CT was remarkable for multilobar pneumonia which was better than before. Significant retropharyngeal space fluid the details of which is unclear. ASSESSMENT AND PLAN: 1. Acute encephalopathy. Differential includes sepsis, hypoglycemia, metabolic derangement or new CVA. Continue to monitor his mental status in ICU. I would consider getting a repeat CT of his head a few hours later to make sure he did not have new CVA not detectable on previous CT scan. 2. Hyponatremia, hypochloremia, hyperkalemia, acute kidney injury due to volume depletion, sepsis, rhabdomyolysis. Continue close input, output with Gonzáles catheter and intravenous fluid resuscitation. He did not have any evidence of fracture. His rhabdomyolysis could be prolonged unresponsiveness or lying on the floor. Further historical data pending family arrival. 3. Sepsis due to gram-negative rods. This could be urosepsis versus others. I will continue intravenous fluid resuscitation, intravenous vancomycin, Zosyn, and follow up with final culture data results including urine culture, which I suggested nurse to collect. 4. Transaminitis, coagulaopathy, hyperbilirubinemia in the setting of sepsis, hypotension, alcohol abuse. Follow-up ultrasound abdomen. I will trend liver function tests and consider getting hepatitis panel. 5. Suspected bilateral lower lobe pneumonia. His chest CT in fact looks better than before. He previously did not have positive culture data when he was admitted in December for pneumonia. 6. Congestive heart failure with ejection fraction of 15% due to alcoholic cardiomyopathy. I will be gentle with intravenous fluid resuscitation and I will continue to monitor his breathing status. 7. Others. He does have a history of chronic alcohol abuse, tobacco abuse, COPD. 8. Disposition. Patient's condition is critical because of hypoglycemia on presentation which could have caused brain injury, multiple metabolic derangement, poor functional status and baseline history of chronic obstructive pulmonary disease and congestive heart failure. TIME SPENT: More than 30 minutes of critical care time was spent taking care of this patient. I will update the family when they are there. ADDENDUM: I updated patient's daughter about his critical condition and answered all of her questions. cc: MD DANNY Mascorro
[2019-02-11] MEDS ORDERED: LOVENOX SUBQ SCH (16:00)
[2019-02-11 17:36] LABS: HEMATOCRIT 32.8 % (42.0-52.0); HEMOGLOBIN 10.8 g/dL (14.0-18.0); IMM GRAN# 0.03 X1000 (0.0-0.04); IMM GRAN% 0.3 % (0.0-0.5); LYMPH# 0.46 X1000 (1.2-3.4); LYMPH% 4.9 % (20.5-51.1); MCH 28.8 PG (27-31); MCHC 32.9 g/dL (33-37); MCV 87.5 FL (81-99); MONO# 0.43 X1000 (0.11-0.59); MONO% 4.6 % (1.7-9.3); MPV 11.7 FL (7.4-10.4); NEUT# 8.42 X1000 (1.4-6.5); NEUT% 90.2 % (42.2-75.2); PLT 83 X1000 (130-400); RBC 3.75 XMIL (4.7-6.1); WBC 9.34 X1000 (4.8-10.8)
[2019-02-11 18:07] LABS: BANDS 2 % (0-1); LYMPHS 16 % (21-51); MONO 2 % (1-9); SEGS 80 % (42-75)
[2019-02-11 18:08] LABS: ALB/GLOB RATIO 1.3; CALCIUM 7.5 mg/dL (8.8-10.2); CREATININE 1.7 mg/dL (0.7-1.2); POTASSIUM 4.4 mmol/L (3.5-5.1); TOTAL BILIRUBIN 3.99 mg/dL (0.20-1.00); TOTAL PROTEIN 5.3 g/dL (6.3-8.3)
--- NOTE | 2019-02-11 18:47 | Diag Imaging Result Doc PS360 ---
EXAM: US ABDOMEN-COMPLETE INDICATION: Abnormal LFT COMPARISON: 09/27/2015 FINDINGS: Bilateral pleural effusions are noted. There has been a prior cholecystectomy. The common bile duct is normal in diameter. The liver echotexture is mildly increased throughout suggesting mild hepatic steatosis. No discrete liver mass is identified. Portal venous flow is hepatopetal. The visualized pancreas is unremarkable. The aorta and IVC are grossly unremarkable. The spleen is unremarkable. The kidneys are grossly unremarkable. IMPRESSION: 1.Suggestion of mild hepatic steatosis. 2.Incidental small bilateral pleural effusions. Electronically signed by Han Kumar 02/11/2019 6:45 PM
[2019-02-11] MEDS: NS 1,000 ML IV SCH (20:45)
--- NOTE | 2019-02-11 22:36 | GASTROENTEROLOGY CONSULTATION ---
DATE: 02/11/2019 HISTORY OF PRESENT ILLNESS: Mr. Colunga was discharged from the hospital recently, where he was treated for pneumonia. He was living with another 2 roommates, and after discharge apparently he resumed his drinking, did not take his medication and did not take care of himself. He was on the floor, not eating or drinking for the past 3 days. He was so weak and tired, could not even get up by himself. The daughter tells me that even with her asking him and the roommates asking him to come back to the hospital or call the ambulance, he declined, until when his daughter visited him last time he was in such poor shape she called the ambulance. He was found to be hypoglycemic and he had altered mental status. He was given D50, with some improvement in his mental status. He was brought to the emergency room. We evaluated him and admitted him to the hospital for further treatment. The patient is now on BiPAP and he is sedated. He is not answering questions. Most of the information was obtained from his daughter, who was present at the bedside along with her . She tells me that he has been drinking after discharge again. He lives with 2 other roommates. She does not know whether he has been running any fever or chills. He was brought in the hospital and apparently he was noted to have dark stool, but when rectal exam was done by Dr. Mcdaniel he did not see evidence of active bleeding or melena. He is being treated at this point in the ICU. PAST MEDICAL HISTORY: Obtained from the chart indicates that he has history of hypertension and cardiomyopathy, with ejection fraction only 15%. He has had history of alcohol abuse and hyperlipidemia, along with COPD. SURGICAL HISTORY: Obtained from the chart indicates that he has had cholecystectomy, jaw surgery, and left foot and hand surgery. MEDICATIONS: Prior to his hospitalization, he was supposed to take some medications but apparently has not been taking any for the past 3 days at least. SOCIAL HISTORY: He is single. He is currently living with his 2 roommates. He has been smoking a pack of cigarettes per day and has been drinking heavily up until 3 days ago when he was unable to get up from the floor. He has history of marijuana use. FAMILY HISTORY: Noncontributory. REVIEW OF SYSTEMS: Could not be obtained from the patient. PHYSICAL EXAMINATION: On examination, the patient is lying in bed. He is, again, sedated and is on BiPAP. Temperature 98.1 degrees Fahrenheit, pulse is 114 per minute, breathing 32 per minute, blood pressure was 106/78. He weighs 123 pounds and he is 5 feet 7 inches tall. Head is atraumatic, normocephalic. Eyes: Conjunctivae are pale. Sclerae anicteric. Nares and mouth could not be examined because of the BiPAP. Neck is supple. No lymphadenopathy. Chest: Harsh breath sounds bilaterally. Occasional crepitations could be heard. Heart sounds are audible with no murmur, but the heart sounds are muffled. Abdomen is full. It is soft, it is nontender. I could not appreciate any masses or organomegaly. No ascites noted. Bowel sounds are audible. No pedal edema noted. LABORATORY DATA: Labs reviewed, which showed WBC of 11.39, hemoglobin is 10.6; on discharge on 12/31 it was 12.8 and hematocrit was 37.5, which is now 31.7. MCV 87.6, platelets 93,000. PT on admission was 38.0, INR 3.71, PTT was 50.1. Sodium 131, potassium 4.6, chloride 93, bicarbonate 18. BUN is 48, creatinine 2.1; on discharge his BUN was 12, creatinine was 0.6. AST is 1724, ALT is 745, total bilirubin was 4.0, alkaline phosphatase is 103. IMPRESSION AND PLAN: 1. This is a 58-year-old gentleman alcoholic, with recent discharge from the hospital with pneumonia. He has not been able to take care of himself. Readmitted to the hospital with altered mental status. Apparently he has been lying on the floor for 3 days. He is sedated and on bilevel positive airway pressure. He has not been able to answer questions. Apparently there was a question of possible melena, but he was not found to have any melena or bright red on his rectal exam by Dr. Mcdaniel. He is not actively bleeding now. He is hemodynamically unstable. At this point I would say to continue intravenous proton pump inhibitor, continue hemodynamic resuscitation. At this point he remains on bilevel positive airway pressure and does not show any signs of active bleeding. There is no reason for any endoscopic intervention. Continue symptomatic treatment. 2. Elevated liver function tests, most likely ischemic liver disease at this point. His transaminases are trending down. Continue supportive care. Continue hemodynamic resuscitation. No new suggestions. We will continue to follow. I have explained my findings and plan to the daughter, who was present at bedside. She understood. All the pertinent questions were answered. cc: Ron Tobin MD
[2019-02-11 23:28] LABS: HEMATOCRIT 33.1 % (42.0-52.0); LYMPH# 0.53 X1000 (1.2-3.4); LYMPH% 5.9 % (20.5-51.1); MCHC 33.2 g/dL (33-37); MCV 87.3 FL (81-99); MONO# 0.59 X1000 (0.11-0.59); MONO% 6.6 % (1.7-9.3); MPV 11.6 FL (7.4-10.4); NEUT% 87.5 % (42.2-75.2); PLT 69 X1000 (130-400); RBC 3.79 XMIL (4.7-6.1); RDW 16.1 % (11.5-14.5); WBC 8.92 X1000 (4.8-10.8)
[2019-02-12] MEDS ORDERED: DIPRIVAN 1% 1,000 MG/100 ML BOTTLE ONE (01:00)
[2019-02-12] MEDS ORDERED: VERSED IV ONE (01:00)
[2019-02-12] MEDS ORDERED: AMIDATE IV ONE (01:00)
[2019-02-12] MEDS: DIPRIVAN 1% 1,000 MG/100 ML BOTTLE IV SCH ×3 (01:25→19:21)
[2019-02-12] MEDS: ZOSYN 3.375 GM in NS 50 ML IV SCH ×3 (04:14→16:17)
[2019-02-12 05:20] LABS: ALLEN TEST YES; BE -4.2 mmoll (-3.0-3.0); BLOOD TYPE ARTERIAL; HCO3-(ACT) 21.7 mmoll (20.0-26.0); METHB 0.9 % (0.0-1.5); O2(CT) 21.1 mL/dL (15.0-23.0); O2HB 97.5 % (95.0-99.0); PCO2(98.6) 38 mmHg (35-45); PO2(98.6) 321 mmHg (60-100); SAMPLE BLOOD; SRATE 15 BPM; THB 14.8 g/dL (11.5-17.4); TVOL 500 mL; pH(98.6) 7.35 (7.35-7.45)
[2019-02-12 05:21] LABS: MODALITY VENTILATOR
[2019-02-12 06:40] LABS: INR 2.68; PROTIME 29.3 Seconds (11.0-16.0)
[2019-02-12 06:43] LABS: URINE SOURCE CATH
[2019-02-12 06:45] LABS: BILIRUBIN URINE NEGATIVE (NEGATIVE); BLOOD URINE MODERATE (NEGATIVE); COLOR YELLOW; GLUCOSE URINE NEGATIVE (NEGATIVE); KETONE URINE TRACE mg/dL (NEGATIVE); LEUKOCYTES URINE NEGATIVE (NEGATIVE); NITRITE URINE NEGATIVE (NEGATIVE); PROTEIN URINE TRACE mg/dL (NEGATIVE); SP GRAVITY URINE 1.016; TURBIDITY URINE CLEAR (CLEAR); UROBILINOGEN URINE NORMAL (NORMAL)
[2019-02-12 06:46] LABS: UR EPITHELIAL CELLS <10 /HPF (<10); URINE BACTERIA NEGATIVE /HPF; URINE RBC <10 /HPF (<10); URINE WBC <10 /HPF (<10)
[2019-02-12 06:48] LABS: HEMATOCRIT 30.7 % (42.0-52.0); LYMPH# 0.47 X1000 (1.2-3.4); LYMPH% 7.3 % (20.5-51.1); MCH 28.6 PG (27-31); MCHC 32.6 g/dL (33-37); MCV 87.7 FL (81-99); MONO# 0.43 X1000 (0.11-0.59); MONO% 6.7 % (1.7-9.3); MPV 11.6 FL (7.4-10.4); NEUT# 5.53 X1000 (1.4-6.5); PLT 60 X1000 (130-400); RDW 16.1 % (11.5-14.5); WBC 6.43 X1000 (4.8-10.8)
[2019-02-12 06:56] LABS: ALB/GLOB RATIO 1.3; ALBUMIN 2.7 g/dL (3.5-5.0); CALCIUM 7.8 mg/dL (8.8-10.2); CREATININE 1.6 mg/dL (0.7-1.2); POTASSIUM 3.9 mmol/L (3.5-5.1); TOTAL BILIRUBIN 3.48 mg/dL (0.20-1.00); TOTAL PROTEIN 4.8 g/dL (6.3-8.3)
--- NOTE | 2019-02-12 08:08 | Diag Imaging Result Doc PS360 ---
EXAM: CHEST-PORTABLE INDICATION: intubation TECHNIQUE: One view COMPARISON: 02/10/2019 FINDINGS: There is a newly placed ET tube. The tip projects over the trachea and above the hemal at about the T5 level. There has been interval worsening of consolidation at the mid and lower lung zone on the left. There has been development of a small left pleural effusion. Cardiac silhouette is stable. IMPRESSION: Interval intubation as described with worsening infiltrate on the left and development of a left effusion. Electronically signed by Han Kumar 02/12/2019 8:06 AM
[2019-02-12] MEDS ORDERED: THIAMINE 500 MG in NS 50 ML IV SCH (09:45)
--- NOTE | 2019-02-12 10:09 | PROGRESS NOTE ---
DATE: 02/12/2019 INTERVAL HISTORY: Yesterday, I had an extensive discussion about his critical condition and poor prognosis with his daughter. I had answered all of his questions. Overnight, Mr. Colunga's breathing had gotten worse. He was tachypneic, and he was desatting on BiPAP. Apparently right at the shift change, nasotracheal suction was given to him, following which he was feeling better, but at around midnight, his tachypnea worsened, he was tachycardic, and he was desatting on BiPAP, so he was intubated by emergency room, likely for airway protection. SUBJECTIVE: At the time of my evaluation, he is sedated on propofol. Does not open eyes to verbal stimuli. He starts wriggling to painful stand. OBJECTIVE: Vital Signs: Temperature 97.7 degrees, pulse 94, respiratory rate 17, blood pressure 102/69, he is saturating 100% on mechanical ventilation. General: He does not appear in any acute distress. HEENT: Oral cavity dry. Lungs: Air entry bilaterally equal. No wheeze or rhonchi. Mild crackles, left infrascapular region. Heart: S1, S2 normal. Regular. No murmur, rub, or gallop. Abdomen: Soft, nontender. Extremities: No lower extremity edema. He has endotracheal tube, urine catheter. Input and output suggests his urine output is 1.1 L. LABORATORY DATA: Suggestive of normocytic anemia, thrombocytopenia, elevated INR. ABG suggestive of adequate PO2 on 100% FiO2. He does appear to have elevated BUN. However, his creatinine is improving since presentation. He does have decreasing transaminitis. MICROBIOLOGY: One of the two blood cultures growing gram-negative tammy. IMAGING: Chest x-ray performed today has intubation and worsening infiltrate on the left and development of left effusion. Abdominal ultrasound had hepatic steatosis and small pleural effusion. ASSESSMENT AND PLAN: 1. Acute hypoxic respiratory failure. This is likely because of inability to manage oral secretions because of lethargy related to alcohol intoxication on presentation and acute encephalopathy. Continue mechanical ventilation. Pulmonology team has been consulted. He is on propofol for sedation. 2. Acute encephalopathy due to sepsis, hypoglycemia, and metabolic derangements. I will consider getting a repeat CT scan in the future to rule out a new cerebrovascular accident, which was not detected on CT scan on arrival. 3. Sepsis due to gram-negative rods. Source could be left lower lobe pneumonia versus urosepsis. Continue intravenous vancomycin and Zosyn. Follow up final culture data. 4. Hyponatremia, hypochloremia, hyperkalemia, acute kidney injury on presentation due to sepsis, rhabdomyolysis, and volume depletion. He received intravenous fluid resuscitation for about 24 hours. I am holding intravenous fluids for now since he has bilateral pleural effusions. I will closely monitor kidney function, and give additional fluids as necessary. 5. Transaminitis, coagulopathy, hyperbilirubinemia in the setting of sepsis, hypotension, hypoxia, and alcohol abuse. I will continue to address underlying issues, and trend the enzymes. 6. Alcoholic cardiomyopathy with congestive heart failure with ejection fraction of 15%; chronic alcohol abuse; tobacco abuse and chronic obstructive pulmonary disease are currently stable. 7. Disposition. I will continue to monitor the patient in intensive care unit. His condition and prognosis are critical. I had an extensive discussion about his critical condition with his daughter. All of her questions were answered. cc: Daniel Mcdaniel MD MTDD
[2019-02-12 10:26] LABS: BANDS 4 % (0-1); LYMPHS 6 % (21-51); MONO 2 % (1-9); SEGS 84 % (42-75)
[2019-02-12] MEDS: SODIUM CHLORIDE 0.9% INJ SCH (10:27)
[2019-02-12] MEDS: PROTONIX IV SCH (10:27)
[2019-02-12] MEDS: CLINIMIX E 4.25%-5% SOLUTION 1,000 ML IV SCH (13:01)
[2019-02-12] MEDS ORDERED: VANCOMYCIN 1,250 MG in NS 250 ML IV SCH ×2 (14:00→21:00)
--- NOTE | 2019-02-12 14:30 | EKG Report ---
Test Performed on : 02/10/2019 6:39:08 PM Test Reason : altered MSE Blood Pressure : / mmHG Vent. Rate : 100 BPM Atrial Rate : 101 BPM P-R Int : 000 ms QRS Dur : 204 ms QT Int : 510 ms P-R-T Axes : 000 -04 081 degrees QTc Int : 657 ms Sinus tachycardia. with AV dissociation. and Wide QRS rhythm. Left bundle branch block Abnormal ECG When compared with ECG of 30-DEC-2018 09:09, (Unconfirmed) Wide QRS rhythm. has replaced Sinus rhythm. Unconfirmed Result
--- NOTE | 2019-02-12 14:42 | EKG Report ---
Test Performed on : 02/11/2019 11:03:10 AM Test Reason : MD ordered Blood Pressure : / mmHG Vent. Rate : 106 BPM Atrial Rate : 106 BPM P-R Int : 154 ms QRS Dur : 182 ms QT Int : 408 ms P-R-T Axes : 065 -16 084 degrees QTc Int : 541 ms Sinus tachycardia. Possible Left atrial enlargement Left bundle branch block Abnormal ECG When compared with ECG of 10-FEB-2019 18:39, (Unconfirmed) Sinus rhythm. has replaced Wide QRS rhythm. Confirmed by Zack STOREY, P.J.M ([id number]) on 02/13/2019 6:30:48 PM
[2019-02-12] MEDS: DUONEB (A & A) INH SCH ×3 (15:48→23:18)
--- NOTE | 2019-02-12 17:39 | PULMONOLOGY CONSULTATION ---
DATE: 02/12/2019 REQUESTING CLINICIAN: Dr. Mcdaniel. REASON FOR CONSULTATION: Respiratory failure. HISTORY OF PRESENT ILLNESS: Mr. Colunga is a 58-year-old male with ongoing tobacco use, alcohol abuse, who has previously been admitted to this hospital for alcohol intoxication, seizures, possible spice abuse. The patient was last in this hospital in December. The patient by report has become progressively weak over the last several days and was unable to get off the floor. Daughter could not get him to come the emergency room. EMS was called when he became unresponsive. He was noted to have a blood sugar of 20. He was brought to the emergency room. He has not been following commands during admission. He has had a bloody bowel movement. He had progressive respiratory failure and was intubated earlier this morning. PAST MEDICAL HISTORY: 1. Alcohol abuse. 2. Nonischemic cardiomyopathy with an ejection fraction of 15%. 3. Chronic obstructive pulmonary disease. 4. Hypertension. 5. Dyslipidemia. 6. Status post cholecystectomy. 7. History of left hand and foot surgery. 8. Status post jaw surgery. SOCIAL HISTORY: Ongoing alcohol, tobacco, and marijuana use. FAMILY HISTORY: Notable for heart disease. REVIEW OF SYSTEMS: Cannot be obtained. PHYSICAL EXAMINATION: General: Reveals a disheveled white male who appears older than his stated age of 58. He is on mechanical ventilation. Vital Signs: The patient has been afebrile for the last 24 hours. Blood pressure 97/64, heart rate 100, respiratory rate 18, oxygen saturation 98%. HEENT: Pupils are equal. No definite jaundice. Oropharynx is clear. Neck: Supple. Chest: Reveals coarse rhonchi bilaterally with decreased breath sounds in the left base. Cardiac Exam: S1, S2. Abdomen: Soft. Extremities: Without edema. LABORATORIES: White blood count 6.43, hemoglobin 10.0, platelet count 60,000. Blood cultures reveal gram-negative tammy in his blood culture. Chest x-ray reveals worsening infiltrate in the left lung. Sodium 147, potassium 3.9, chloride 103, bicarbonate 21, BUN 56, creatinine 1.6. AST 1,058, ALT 631. Arterial blood gas, pH 7.35, pCO2 of 38, PO2 of 321. IMPRESSIONS: A 58-year-old with: 1. Pneumonia. 2. Acute hypoxemic respiratory failure requiring intubation and mechanical ventilation. 3. Gram-negative bacteremia with a normal urinalysis, the suspected source of infection is the lung. 4. Alcohol abuse. 5. Altered mental status. 6. Gastrointestinal bleeding. 7. Thrombocytopenia. 8. Anemia. 9. Nicotine addiction with ongoing tobacco use. 10. Cannabinoid use. RECOMMENDATIONS: 1. Agree with intubation and initiation of mechanical ventilation. 2. Please send sputum for C S. 3. Initiate bronchodilators for bronchial hygiene. 4. Agree with thiamine. We will add multivitamin and folate. 5. We will initiate nutrition. We will bridge nutrition with trickle feeds from an NG tube and combined with PPN by Clinimix. 6. Long-term, the patient survival will require smoking cessation and alcohol cessation. 7. Continue broad-spectrum antibiotics pending results of culture data. Time spent in critical care management: 1 hour cc: Molina Lira MD MTDD
[2019-02-12 17:42] LABS: AGAP 13; BUN 43 mg/dL (8-22); CALCIUM 7.8 mg/dL (8.8-10.2); CHLORIDE 108 mmol/L (98-107); COSMO 298; CREATININE 1.2 mg/dL (0.7-1.2); ESTIMATED GFR > 60; GLUCOSE 137 mg/dL (70-104); POTASSIUM 3.9 mmol/L (3.5-5.1); SODIUM 143 mmol/L (136-145); TCO2 22 mmol/L (25-35)
[2019-02-12 17:44] LABS: EOS# 0.05 X1000 (0.0-0.7); EOS% 0.9 % (0.0-10.0); HEMATOCRIT 30.2 % (42.0-52.0); HEMOGLOBIN 9.9 g/dL (14.0-18.0); IMM GRAN# 0.02 X1000 (0.0-0.04); IMM GRAN% 0.3 % (0.0-0.5); LYMPH# 0.56 X1000 (1.2-3.4); LYMPH% 9.8 % (20.5-51.1); MCH 28.9 PG (27-31); MCHC 32.8 g/dL (33-37); MONO# 0.43 X1000 (0.11-0.59); MONO% 7.5 % (1.7-9.3); MPV 11.6 FL (7.4-10.4); NEUT# 4.66 X1000 (1.4-6.5); NEUT% 81.5 % (42.2-75.2); PLT 50 X1000 (130-400); RBC 3.43 XMIL (4.7-6.1); RDW 16.1 % (11.5-14.5); WBC 5.72 X1000 (4.8-10.8)
--- NOTE | 2019-02-12 18:28 | Diag Imaging Result Doc PS360 ---
EXAM: CHEST-1 VIEW INDICATION: OGT placement TECHNIQUE: One view COMPARISON: 02/12/2019 FINDINGS: There is a newly placed OG tube. The tip projects well below the diaphragm and is assumed to be in the lumen of the stomach in expected position. The ET tube is in stable position. The lungs are overexposed due to focus on the NG tube. However, they are approximately stable as compared to the previous study. IMPRESSION: Interval placement of OG tube in the expected position as described. Electronically signed by Han Kumar 02/12/2019 6:26 PM
--- NOTE | 2019-02-12 21:44 | GASTROENTEROLOGY PROGRESS NOTE ---
DATE: 02/12/2019 SUBJECTIVE: Patient is intubated on mechanical ventilation. Per nurse report there has been no noted evidence of GI bleeding today. OBJECTIVE: Vital Signs: Temperature 97.3 degrees, pulse 92, respirations 18, blood pressure 99/65. General: Patient is intubated on mechanical ventilation. Abdomen: Soft, nontender. LABORATORY: Hematology. WBC 6.43, hemoglobin 10.0, hematocrit 30.7, MCV 87.7, platelets 60,000. Coagulation. Pro time 29.3, INR 2.68. Chemistry. Sodium 140, potassium 3.9, chloride 100, CO2 21, BUN 50, creatinine 1.6, glucose 116, total bilirubin 3.48, AST 1058, ALT 631, alkaline phosphatase 89. ASSESSMENT AND PLAN: 1. Acute respiratory failure. Patient is now intubated on mechanical ventilation. 2. Elevated liver function tests have improved slightly. Will continue to follow. 3. Alcohol abuse. 4. Will continue to follow. Repeat liver function test tomorrow. Continue current management. I have discussed this case with Dr. Tobin. Further plans to be made according to patient's progress. Dictated by DANK Mathis for Ron Tobin MD cc: DANK Norwood MD
[2019-02-13] MEDS: PROTONIX IV SCH ×3 (00:27→23:19)
[2019-02-13] MEDS: ZOSYN 3.375 GM in NS 50 ML IV SCH ×2 (00:27→05:09)
[2019-02-13] MEDS: CLINIMIX E 4.25%-5% SOLUTION 1,000 ML IV SCH ×3 (01:50→21:30)
[2019-02-13] MEDS: DIPRIVAN 1% 1,000 MG/100 ML BOTTLE IV SCH ×2 (01:50→18:19)
[2019-02-13] MEDS: DUONEB (A & A) INH SCH ×6 (02:42→23:07)
[2019-02-13 05:11] LABS: ALLEN TEST YES; BE 1.5 mmoll (-3.0-3.0); BLOOD TYPE ARTERIAL; HCO3-(ACT) 26.2 mmoll (20.0-26.0); PCO2(98.6) 34 mmHg (35-45); PO2(98.6) 177 mmHg (60-100); SAMPLE BLOOD; SRATE 15 BPM; TVOL 500 mL; pH(98.6) 7.47 (7.35-7.45)
[2019-02-13 05:12] LABS: MODALITY VENTILATOR
[2019-02-13 06:43] LABS: EOS# 0.05 X1000 (0.0-0.7); EOS% 0.8 % (0.0-10.0); HEMATOCRIT 31.3 % (42.0-52.0); HEMOGLOBIN 10.2 g/dL (14.0-18.0); IMM GRAN# 0.02 X1000 (0.0-0.04); IMM GRAN% 0.3 % (0.0-0.5); LYMPH% 6.3 % (20.5-51.1); MCH 29.5 PG (27-31); MCHC 32.6 g/dL (33-37); MCV 90.5 FL (81-99); MONO# 0.57 X1000 (0.11-0.59); MONO% 8.9 % (1.7-9.3); MPV 12.5 FL (7.4-10.4); NEUT# 5.36 X1000 (1.4-6.5); NEUT% 83.7 % (42.2-75.2); PLT 46 X1000 (130-400); RBC 3.46 XMIL (4.7-6.1); RDW 16.8 % (11.5-14.5)
--- NOTE | 2019-02-13 07:17 | Diag Imaging Result Doc PS360 ---
EXAM: CHEST-PORTABLE 02/13/2019 HISTORY: respiratory failure TECHNIQUE: AP portable at 0554 COMMENT: There is an endotracheal tube with its tip approximately 3 cm above the hemal. There is an NG tube with its tip below the diaphragm presumably in the stomach. There is ill-defined opacity in the lower lung gonzalez bilaterally with dense opacification of the left lower lobe and obscuration of the left hemidiaphragm. The heart size is enlarged. IMPRESSION: Pulmonary edema. Atelectasis versus pneumonia left lower lobe. Electronically signed by Octavio Barclay 02/13/2019 7:14 AM
[2019-02-13 07:46] LABS: AGAP 16; ALBUMIN 2.3 g/dL (3.5-5.0); ALKALINE PHOSPHATASE 82 U/L (32-122); BUN 42 mg/dL (8-22); CALCIUM 7.8 mg/dL (8.8-10.2); CHLORIDE 109 mmol/L (98-107); COSMO 296; ESTIMATED GFR > 60; GLUCOSE 141 mg/dL (70-104); GOT 584 U/L (10-34); GPT 514 U/L (10-44); POTASSIUM 4.1 mmol/L (3.5-5.1); SODIUM 142 mmol/L (136-145); TCO2 17 mmol/L (25-35); TOTAL BILIRUBIN 2.83 mg/dL (0.20-1.00); TOTAL PROTEIN 4.7 g/dL (6.3-8.3)
[2019-02-13 07:57] LABS: MAGNESIUM 1.6 mg/dL (1.5-2.7); PHOSPHORUS 2.1 mg/dL (2.7-4.5)
--- NOTE | 2019-02-13 09:07 | EKG Report ---
Test Performed on : 02/12/2019 01:12:44 AM Test Reason : EVAL Blood Pressure : / mmHG Vent. Rate : 120 BPM Atrial Rate : 120 BPM P-R Int : 124 ms QRS Dur : 150 ms QT Int : 362 ms P-R-T Axes : 046 -41 105 degrees QTc Int : 511 ms Sinus tachycardia. Possible Left atrial enlargement Left axis deviation Left bundle branch block Abnormal ECG When compared with ECG of 11-FEB-2019 11:03, (Unconfirmed) QRS duration has decreased T wave amplitude has increased in Anterior leads Confirmed by Zack STOREY, P.J.M ([id number]) on 02/13/2019 6:31:16 PM
[2019-02-13] MEDS: M.V.I.-12 10 ML, FOLIC ACID 1 MG, MAGNESIUM SULFATE 1 GM, THIAMINE 100 MG in NS 1,000 ML IV SCH (10:18)
[2019-02-13] MEDS: MERREM 1 GM in NS 50 ML IV SCH ×2 (10:38→18:18)
--- NOTE | 2019-02-13 10:55 | PROGRESS NOTE ---
DATE: 02/13/2019 INTERVAL HISTORY: His pulse was in 100s. He is saturating well on 35% FiO2. His mean arterial pressures were more than 65 mmHg on most occasions. He has not had a bloody bowel movement. He continues to have thrombocytopenia. I had an extensive discussion about his critical condition with a lot of family members at bedside yesterday. SUBJECTIVE: He is intubated, not responsive. VITALS: Temperature of 97 degrees, pulse of 85, respiratory rate 20. His blood pressure is 98/61, MAP more than 65 mmHg. He is saturating 100% on 35% mechanical ventilation. PHYSICAL EXAMINATION: HEENT: Pupils are bilaterally equal reacting to light. He has endotracheal tube, OG tube, urine catheter. Lungs: Air entry bilaterally equal. No wheeze or rhonchi. Mild crackles bilateral infra-axillary region. Cardiovascular: S1, S2 normal. Tachycardic. No murmur, rub, or gallop. Baseline left bundle branch block on it administrative assistant. Abdomen: Soft, nontender. Active bowel sounds. Extremities: No lower extremity edema. He is wincing to painful stimuli all extremities. LABS: Stable. Hemoglobin worsening thrombocytopenia. His ABG suggestive of PO2 of 177 on 35% FiO2. He has improvement in his creatinine. His bilirubin and transaminitis have been improving as well. MICROBIOLOGY: One of the two blood cultures drawn on February 10 is probably growing Escherichia coli ESBL as per my discussion with microbiology. Final results will be out tomorrow on February 14. I have not changed the antibiotics until then. IMAGING: Chest x-ray performed today morning has pulmonary edema, atelectasis versus pneumonia of left lower lobe. Repeat chest x-ray yesterday had appropriate position in OG tube. ASSESSMENT AND PLAN: 1. Acute hypoxic respiratory failure due to inability to manage oral secretions because of altered mental status because of alcohol leading to acute encephalopathy as well as bilateral lower lobe pneumonia. Continue mechanical ventilation, propofol sedation and bronchial hygiene as per Pulmonology recommendation. He is on proton pump inhibitors for stress ulcer prophylaxis as well as he should have mechanical devices for deep venous thrombosis prophylaxis. 2. Acute encephalopathy on presentation due to sepsis, hypoglycemia, and metabolic derangement. His CT scan had encephalomalacia in the left occipital lobe suggestive of chronic infarction which, however, was not present in November 2017. If his mental status does not improve, I will consider getting another CT scan to rule out any acute infarct which was not detectable on presentation. Follow up ECHO and US carotids. 3. Sepsis due to gram-negative rods, presumably extended spectrum Beta lactamase Escherichia coli as per my discussion with microbiology. Follow up repeat blood cultures. Continue intravenous vancomycin and changed from Zosyn to meropenem and deescalate antibiotics as per the final culture sensitivity results. Likely sources could be bilateral pneumonia versus other etiologies. His urine culture was never sent, though, however, and on presentation he did have 22 to 40 WBCs. 4. Hyponatremia, hypochloremia, hyperkalemia, acute kidney injury on the presentation due to sepsis, rhabdomyolysis and intravascular volume depletion, now improving. 5. Transaminitis, coagulopathy, hyperbilirubinemia in the setting of sepsis, hypoxic liver injury, hypotension and alcohol abuse. Continue to trend that. 6. Acute gastrointestinal bleed with intermittent bloody bowel movements. His hemoglobin has been stable. Gastroenterology on board. Considering his coagulopathy and stable hemoglobin no acute interventions are planned. His worsening thrombocytopenia could be in the setting of liver damage from current presentation versus ongoing gastrointestinal bleed. I will continue to monitor and we will transfuse with a goal transfuse if his platelet count drops to less than 20,000. 7. 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 DISPOSITION: In brief, Mr. Colunga is a chronic alcoholic individual who was brought to the EMS by his daughter since the patient had been lethargic since last 3 days prior to presentation. When EMS arrived he was found to have hypoglycemia with blood sugar of 20. In the emergency room he was resuscitated and was started on intravenous fluids and intravenous antibiotics because of his acute liver failure and acute kidney failure. On the second day of his admission, his respiratory status had started becoming worse and he was tachypneic, and was unable to protect the airway, so he was electively so he was intubated. Since then, he is on mechanical ventilation, since 02/12/2019, currently being treated for sepsis. I had an extensive discussion about his critical condition with his daughter at bedside today. All of her questions have been answered. ADDENDUM: I had a discussion with cardiology team on phone. And though the official report is pending, I was informed that he has a LV thrombus. He is currently coagulopathic due to liver failure and has thrombocytopenia. He also is having intermittent bloody bowel movements. I am holding anticoagulation until I have a definite discussion with the cardiology team. I have placed consult. cc: Daniel Mcdaniel MD MTDD
[2019-02-13] MEDS: SODIUM CHLORIDE 0.9% INJ SCH (11:53)
[2019-02-13] MEDS: VANCOMYCIN 1,500 MG in NS 250 ML IV SCH (14:45)
--- NOTE | 2019-02-13 14:55 | GASTROENTEROLOGY PROGRESS NOTE ---
DATE: 02/13/2019 SUBJECTIVE: At the time of my rounds, the patient was getting a carotid Doppler study. I spoke with his daughter at the bedside. The patient continues to be intubated, receiving sedation. Per nurse report, there has been no noted bloody stools today there was some documented bright red bloody bowel movements yesterday. His hemoglobin and hematocrit are actually better today. Hemoglobin 10.2, hematocrit 31.3. OBJECTIVE: Vital Signs: Temperature 97 degrees, pulse 85, respirations 20, blood pressure 96/61. General: The patient is sedated. He is intubated on mechanical ventilation. Having carotid ultrasound studies at the time of my visit. LABORATORY: Hematology: WBC 6.40, hemoglobin 10.2, hematocrit 31.3, MCV 90.5, platelets 46,000. Coagulation ProTime 29.3, INR 2.68. Chemistry: Sodium 142, potassium 4.1, chloride 109, CO2 17, BUN 42, creatinine 1.0, glucose 141, total bilirubin 2.83. AST 584, ALT 514. Alkaline phosphatase 82. ASSESSMENT AND PLAN: 1. Acute respiratory failure. Patient is intubated on mechanical ventilation requiring sedation. 2. Encephalopathy. We will continue to follow. 3. Sepsis on antibiotics. 4. Elevated liver function tests are slowly improving. 5. Gastrointestinal bleeding with bright red rectal bleeding. His hemoglobin and hematocrit have improved today. Per nurse report today, there has been no sign of rectal bleeding. We will continue to follow and further plans to be made according to his progress. I have discussed this case with Dr. Tobin. Dictated by DANK Mathis for Ron Tobin MD cc: DANK Norwood MD
--- NOTE | 2019-02-13 17:40 | ECHO REPORT ---
ORDER DATE: 02/12/2019 ECHOCARDIOGRAPHIC MEASUREMENTS: 1. Interventricular septum 0.6. 2. Left ventricular posterior wall 0.8. 3. Diastolic diameter 8.8. 4. Aorta 2.8. 5. Left atrium 4.8. SUMMARY OF TWO-DIMENSIONAL IMAGIN. There is biatrial enlargement. 2. Left ventricle is severely dilated with an estimated ejection fraction of 10%. There is severe global hypokinesis. In addition in the inferolateral wall, there was thrombus noted. 3. Mitral valve was normal. Aortic valve was normal. Tricuspid valve was normal. 4. There is no aortic stenosis or regurgitation. There is moderate tricuspid regurgitation. Peak velocity across the tricuspid valve was 4.1 m/sec. Pulmonary artery systolic pressure of 77 mmHg. 5. There is moderate mitral regurgitation. 6. There is no aortic stenosis or regurgitation. There is moderate to severe biatrial enlargement. 7. There is no pericardial effusion. cc: MD Daniel Gastelum MD
[2019-02-13 19:12] LABS: PREALBUMIN 3.4 mg/dL (20-40)
--- NOTE | 2019-02-13 22:50 | CARDIOLOGY CONSULTATION ---
DATE: 02/13/2019 CONSULTATION REQUESTED BY: Hospitalist service. REASON FOR CONSULTATION: The patient with suspected stroke, respiratory failure, known case of cardiomyopathy and further abnormal echocardiogram. HISTORY: Mr. Colunga is an unfortunate 58-year-old male who is known to my service. We have followed him for a number of years. He indeed has a chronic heart failure situation. He apparently was found by his daughter to be very weak over the course of several days prior to the admission to the hospital. The daughter recommended to him to come into the hospital seeking evaluation. However, he was kind of reluctant to do so until the day of admission when he was so weak that he could not even stand up. He was brought to the ER on February 10 at about 6:[address] of the chest showed multilobar pneumonia with significant amount of fluid in the retropharyngeal space, a few small droplets of gas in the soft tissues of the right side of the neck, a very small volume of ascites. They also did a head CT on him that reveals left occipital lobe encephalomalacia indicating a chronic infarct; however, it has developed since the prior study from the available files or archives. There is no discrete intracranial mass. The patient developed progressive respiratory failure and had to be emergently intubated I believe about 36 hours ago. At this time, the patient is unresponsive on a ventilator. Family is at the bedside. Chest x-ray has been done today and has been reported as pulmonary edema, atelectasis versus pneumonia left lower lobe. Of note, he had a very abnormal ProTime when he first came in at 38 seconds with an INR of 3.7 and a PTT of 50.1. He is not taking any anticoagulants at home. White count was 15,670. His BUN was 42, creatinine 2.3. His LFTs were off the chart. AST 1861 units, ALT 678 units. CPK was 10,168 units. Index was 1.8%. Plasma lactate was 4.5 millimoles per liter. At any rate, with aggressive resuscitation maneuvers, his chemistry has improved. Right now his BUN is down to 42 and his creatinine is down to 1. His albumin is very low. It was 3.1 on admission, now it is 2.3. His white count has dropped also to 6400. He is on broad-spectrum antibiotics. His blood gases checked on FiO2 of 0.35 indicated a PO2 of 177, pCO2 of 34, and pH of 7.47. PAST HISTORY: Positive for a diagnosis of chronic systolic heart failure for several years. This is idiopathic. He underwent heart catheterization a few years ago that showed only minimal coronary artery disease. We have been consulted over the course of the years for mild elevations of troponin, which did not correspond to any true myocardial infarction. He has no major additional history. He has a reported diagnosis of hypertension. SURGICAL HISTORY: Had a cholecystectomy. SOCIAL HISTORY: He has been homeless for a while. He has been drinking alcohol for many years. This is a daily thing and his nutritional status is very poor. He also smokes cigarettes. FAMILY HISTORY: Really noncontributory at this time. HOME MEDICATIONS: Which he claims to have been taking at this time are not obtainable. REVIEW OF SYSTEMS: Cannot be obtained. However, the daughter who is at the bedside states that he spends most of the time at home drinking beer and eating crackers. PHYSICAL EXAMINATION: Vital signs: His blood pressure right now is 96/61, temperature is 91 degrees, pulse 89, respirations 20. General: He is unresponsive. HEENT: He appears to be pale. No unusual findings in the pupils. Chest: Breath sounds are diffusely diminished. Heart: Sounds are distant regular with a gallop sound and a systolic murmur. Abdomen: Soft, scaphoid, nondistended. Bowel sounds diminished. Extremities: Showed good palpable pulses. Actually, his feet are warm. Neurological: He does not follow any commands. He is unresponsive. IMPRESSION: 1. Patient who probably has a gram-negative pneumonia. He probably has had aspiration. He has gram-negative rods growing in blood culture. 2. Chronic systolic heart failure due to a nonischemic dilated cardiomyopathy, possibly drug related toxic alcohol related. 3. Suspected stroke. 4. Reported finding of thrombus within the left ventricle. 5. Liver dysfunction with elevation of ProTime, low albumin, abnormal liver function test including high bilirubin, high liver function tests. This is probably related to chronic alcohol abuse plus passive congestion of the liver. RECOMMENDATION: At this time, I really do not have any bright ideas. He needs to be placed on broad-spectrum antibiotics. If his blood pressure becomes a problem, we may have to put him on dopamine and Rashard-Synephrine to support his blood pressure. The good news is that his renal function appears to have improved. His nutritional status is suspected to be very poor. His overall prognosis, particularly if indeed he has suffered a stroke and has a thrombus that cannot be controlled with anticoagulants given his liver failure, his prognosis is really very poor. We will see how things go over the next 48 to 72 hours. I explained to the daughter that his outlook is really very grim. cc: Yovanny Urias MD
[2019-02-14] MEDS: MERREM 1 GM in NS 50 ML IV SCH ×3 (01:36→16:53)
[2019-02-14] MEDS: DUONEB (A & A) INH SCH ×6 (03:05→23:38)
[2019-02-14 05:10] LABS: ALLEN TEST YES; BE 0.8 mmoll (-3.0-3.0); BLOOD TYPE ARTERIAL; HCO3-(ACT) 25.5 mmoll (20.0-26.0); METHB 1.1 % (0.0-1.5); MODALITY VENTILATOR; O2(CT) 15.2 mL/dL (15.0-23.0); O2HB 96.5 % (95.0-99.0); PCO2(98.6) 31 mmHg (35-45); PO2(98.6) 135 mmHg (60-100); SAMPLE BLOOD; SAO2 99.2 % (95.0-100.0); SRATE 15 BPM; TVOL 500 mL; pH(98.6) 7.49 (7.35-7.45)
[2019-02-14 05:18] LABS: INR 1.54; PROTIME 18.8 Seconds (11.0-16.0)
[2019-02-14 05:26] LABS: BASO# 0.01 X1000 (0.0-0.2); BASO% 0.1 % (0.0-0.8); EOS% 1.4 % (0.0-10.0); HEMATOCRIT 33.1 % (42.0-52.0); HEMOGLOBIN 10.8 g/dL (14.0-18.0); IMM GRAN# 0.02 X1000 (0.0-0.04); IMM GRAN% 0.3 % (0.0-0.5); LYMPH# 0.79 X1000 (1.2-3.4); LYMPH% 10.9 % (20.5-51.1); MCH 28.8 PG (27-31); MCHC 32.6 g/dL (33-37); MCV 88.3 FL (81-99); MONO# 0.83 X1000 (0.11-0.59); MONO% 11.4 % (1.7-9.3); MPV 11.9 FL (7.4-10.4); NEUT# 5.52 X1000 (1.4-6.5); NEUT% 75.9 % (42.2-75.2); PLT 49 X1000 (130-400); RBC 3.75 XMIL (4.7-6.1); RDW 16.8 % (11.5-14.5); WBC 7.27 X1000 (4.8-10.8)
[2019-02-14 05:30] LABS: AGAP 12; ALBUMIN 2.5 g/dL (3.5-5.0); ALKALINE PHOSPHATASE 91 U/L (32-122); BUN 34 mg/dL (8-22); CALCIUM 7.9 mg/dL (8.8-10.2); CHLORIDE 111 mmol/L (98-107); COSMO 299; CREATININE 0.8 mg/dL (0.7-1.2); ESTIMATED GFR > 60; GLUCOSE 151 mg/dL (70-104); GOT 278 U/L (10-34); GPT 404 U/L (10-44); POTASSIUM 3.8 mmol/L (3.5-5.1); SODIUM 145 mmol/L (136-145); TCO2 22 mmol/L (25-35); TOTAL BILIRUBIN 2.76 mg/dL (0.20-1.00); TOTAL PROTEIN 5.1 g/dL (6.3-8.3)
[2019-02-14] MEDS: DIPRIVAN 1% 1,000 MG/100 ML BOTTLE IV SCH ×2 (05:51→16:53)
[2019-02-14] MEDS: CLINIMIX E 4.25%-5% SOLUTION 1,000 ML IV SCH (05:52)
[2019-02-14] MEDS: ATIVAN IV PRN (06:37)
--- NOTE | 2019-02-14 06:41 | Diag Imaging Result Doc PS360 ---
CHEST-PORTABLE - 02/14/2019 INDICATION: respiratory failure COMPARISON: 02/13/2019 FINDINGS: Support tubes are stable and in good position. Stable cardiomegaly. There has been slight improvement in the bibasilar infiltrates. IMPRESSION: Improvement in the nonspecific bibasilar infiltrates. Electronically signed by Artie Lyon 02/14/2019 6:39 AM
[2019-02-14 07:33] LABS: BANDS 2 % (0-1); EOS 1 % (1-10); LYMPHS 5 % (21-51); MONO 5 % (1-9); SEGS 86 % (42-75)
--- NOTE | 2019-02-14 08:48 | PULMONOLOGY PROGRESS NOTE ---
DATE: 02/13/2019 SUBJECTIVE: The patient is sedated and responds to painful stimuli. OBJECTIVE: Blood pressure 106/75, heart rate 98, respiratory rate 23, oxygen saturation 100%. HEENT: Pupils are equal and reactive. Oropharynx appears clear. Neck is supple. Chest reveals coarse rhonchi bilaterally with decreased breath sounds left base. Cardiac exam: S1 S2, irregular rhythm. Abdomen is soft. Extremities reveal 1+ peripheral edema. LABORATORIES: Echocardiogram reveals ejection fraction of 10% with thrombus in the inferior lateral wall of the left ventricle. There is moderate tricuspid regurgitation with severe pulmonary hypertension, estimated with a PA systolic pressure of 77 mmHg. There is moderate mitral regurgitation. Blood cultures growing gram-negative tammy which has still not yet been identified. White blood count 6.40, hemoglobin 10.2, platelet count 46,000. Sodium 142, potassium 4.1, chloride 109, bicarbonate 17, BUN 42, creatinine 1.0. ProBNP is markedly elevated at 29,452. Chest x-ray reveals cardiomegaly and pulmonary edema with left lower lobe pneumonia. IMPRESSION: A 58-year-old with: 1. Pneumonia. 2. Nonischemic cardiomyopathy with an ejection fraction of 10%. 3. Pulmonary hypertension. 4. Acute hypoxemic respiratory failure. 5. Alcohol abuse. 6. Gastrointestinal bleeding. 7. Thrombocytopenia. 8. Nicotine addiction with tobacco use. 9. Cannabinoid use. PLAN: 1. Continue full ventilatory support pending improvement in clinical status. 2. Advance tube feeds and wean Clinimix as tolerated. 3. Await sputum culture results. 4. Continue bronchodilators. 5. Continue multivitamin and thiamine. 6. Prognosis is guarded to poor. TIME SPENT: Time spent in critical care management is 35 minutes. cc: Molina Lira MD
[2019-02-14] MEDS ORDERED: THIAMINE 100 MG in NS 50 ML IV SCH (09:00)
[2019-02-14] MEDS: M.V.I.-12 10 ML, FOLIC ACID 1 MG, MAGNESIUM SULFATE 1 GM, THIAMINE 100 MG in NS 1,000 ML IV SCH (09:07)
--- NOTE | 2019-02-14 10:02 | CARDIOLOGY PROGRESS NOTE ---
DATE: 02/14/2019 CHIEF COMPLAINT: Respiratory failure, shortness of breath, weakness. SUBJECTIVE: Mr. Colunga remains intubated. Daughter is at the bedside. He has been moving his arms a little bit. He is not on any pressors. His white cell count is 7270. His chest x-ray today shows some improvement of the infiltrates. ProBNP level yesterday was like 29,000 or so. His C-reactive protein was 77.7 mg/dL. His lipase was up to 155. His prealbumin level is very low at 3.4 mg/dL indicating severe protein depletion. OBJECTIVE: Vital signs: Pulse 116, blood pressure 121/72, temperature 97.9, respirations 22. General: The patient is intubated, chronically ill. Skin is warm. HEENT: Otherwise unremarkable. Chest: Diffusely diminished breath sounds. Heart: Sounds are irregularly irregular at times. Tachycardic. Question of gallop. Abdomen: Soft. Extremities: Showed good pulses distally. Neurologic exam: He is really unresponsive at this time, is totally obtunded. LABORATORY WORK: His pO2 on 35% FiO2 is 135. His sodium is 145, potassium 3.8, BUN 34, creatinine 0.8. AST down to 278 units, ALT down to 404 units. Bilirubin is down to 2.76. INR has also improved, is down to 1.54. Sputum is growing Escherichia coli, which is ESBL positive. IMPRESSION: 1. Patient who has probably gram-negative pneumonia with acute hypoxemic respiratory failure. 2. Long-term systolic heart failure/dilated idiopathic nonischemic cardiomyopathy. This is probably secondary to long-term alcohol use. 3. Question of a stroke. 4. Small thrombus noted within the left ventricular apex. 5. Long-term history of tobacco and alcohol use and abuse. 6. Acute liver dysfunction with coagulopathy and elevation of all the liver enzymes. 7. Severe malnutrition, protein depletion. RECOMMENDATIONS: At this time, the focus of therapy should be to cover him for gram-negative pneumonia and to improve his nutritional status before doing anything else. Judicious diuretic use recommended to keep him euvolemic. Prognosis is still very guarded. Will follow him as needed. cc: Yovanny Urias MD
--- NOTE | 2019-02-14 10:04 | EKG Report ---
Test Performed on : 02/14/2019 09:54:40 AM Test Reason : RAPID HR Blood Pressure : / mmHG Vent. Rate : 150 BPM Atrial Rate : 150 BPM P-R Int : 096 ms QRS Dur : 190 ms QT Int : 330 ms P-R-T Axes : -84 -48 149 degrees QTc Int : 521 ms PSVT Left axis deviation Left bundle branch block Abnormal ECG When compared with ECG of 12-FEB-2019 01:12, Junctional rhythm. has replaced Sinus rhythm. QRS duration has increased T wave inversion now evident in Inferior leads T wave inversion more evident in Anterolateral leads Confirmed by Zack STOREY, P.J.M ([id number]) on 02/15/2019 3:10:10 PM
[2019-02-14] MEDS ORDERED: CARDIZEM IV ONE (10:05)
[2019-02-14] MEDS: NEO-SYNEPHRINE 50 MG in NS 250 ML IV SCH (10:21)
[2019-02-14] MEDS: CARDIZEM 100 MG/NS 100 MG/100 ML IVPB IV SCH ×2 (10:23→20:34)
[2019-02-14] MEDS: PROTONIX IV SCH (11:00)
[2019-02-14] MEDS ORDERED: NS 250 ML ONE (11:03)
--- NOTE | 2019-02-14 12:34 | Diag Imaging Result Doc PS360 ---
EXAM: CHEST-PORTABLE INDICATION: picc placement TECHNIQUE: One view COMPARISON: 02/14/2019 FINDINGS: The ET tube and NG tube are in stable positions. There has been interval placement of a left PICC line. The tip of the PICC line projects over the region of the lower SVC in the expected position. Otherwise, the chest is stable as compared to the recent prior study. IMPRESSION: Interval placement of left PICC line as described. Stable chest, otherwise. Electronically signed by Han Kumar 02/14/2019 12:32 PM
[2019-02-14] MEDS: LANOXIN IV SCH ×2 (13:24→20:33)
[2019-02-14] MEDS: VANCOMYCIN 1,500 MG in NS 250 ML IV SCH (14:34)
--- NOTE | 2019-02-14 19:11 | Carotid Study ---
DATE: 02/12/2019 PROCEDURE: Bilateral duplex color-flow imaging of the carotid arteries performed using the [employer] Vivid E9 Ultrasound System with a 9L-D transducer. REFERRING PHYSICIAN: Daniel Mcdaniel MD. INDICATIONS: CVA/stroke. FINDINGS: The velocities in cm/sec were reviewed for both carotid systems. The right ICA/CCA ratio was 0.89, corresponding to percent stenosis of 0 to 39 percent. The left ICA/CCA ratio 0.98, corresponding to percent stenosis of 0 to 39 percent. INTERPRETATION: There is only minimal atherosclerotic disease of the distal common and internal carotid arteries bilaterally, without evidence of a hemodynamically significant lesion in either carotid system. cc: MD Daniel Thomas MD
--- NOTE | 2019-02-14 23:30 | GASTROENTEROLOGY PROGRESS NOTE ---
DATE: 02/14/2019 SUBJECTIVE: The patient was intubated on mechanical ventilation, under sedation. Spoke with the nurse. There has been no reported bloody stools today. OBJECTIVE: Vital signs: Temperature 98.4 degrees, pulse 74, respirations 22, blood pressure 101/65. General: The patient is sedated, intubated, on mechanical ventilation. LABORATORY DATA: Hematology: WBC 7.27, hemoglobin 10.8, hematocrit 33.1, MCV 88.3. Chemistry: Sodium 145, potassium 3.8, chloride 111, CO2 is 22, BUN 34, creatinine 0.8, glucose 151, calcium 7.9, phosphorus 2.6, total bilirubin 2.76, AST 278, ALT 404, alkaline phosphatase 91. ASSESSMENT AND PLAN: 1. Acute respiratory failure. Continues to be intubated on mechanical ventilation. 2. Sepsis, on antibiotics. 3. Elevated liver function tests are slowly improving. 4. Gastrointestinal bleeding. There has been no evidence of gastrointestinal bleeding over the last several days. His hemoglobin and hematocrit have been stable over the last several days. 5. Gastroenterology will continue to follow. Further plans will be made according to his progress. I have discussed this case with Dr. Tobin. Dictated by DANK Mathis for Ron Tobin MD cc: DANK Norwood MD
--- NOTE | 2019-02-14 23:31 | PROGRESS NOTE ---
DATE: 02/14/2019 SUBJECTIVE: The patient was noted to be tachycardic this morning home. He remains on the ventilator. He was started on the Cardizem drip and Rashard-Synephrine and the PICC line was placed. OBJECTIVE: Vital Signs: Temperature 98.4 degrees, blood pressure 101/65, heart rate 74, respirations 22, O2 saturation 99 percent on mechanical ventilator, intake 4 L, output 1.4 . General: This is an elderly male currently sedated on the ventilator . Heart: S1, S2 normal. Tachycardic. Lungs: Coarse breath sounds bilaterally. Abdomen: Positive bowel sounds, soft, nontender, nondistended. Extremities: 3+ edema in the lower extremities, 2+ edema in the upper extremities. Neuro: The patient is currently sedated. LABS: White blood cell count 7.2, hemoglobin 10, hematocrit 33, platelets 49,000, INR 1.54. Sodium 145, potassium 3.8, chloride 111, CO2 22, BUN 34, creatinine 0.8, glucose 151, phosphorus 2.6, magnesium 1.7, AST 278, ALT 404, albumin 2.5. ASSESSMENT AND PLAN: 1. Acute hypoxemic respiratory failure. Continue with ventilatory support as directed by the analytical engineer. 2. Bacteremia secondary to Escherichia coli. Continue on meropenem. 3. Pneumonia. Continue meropenem, bronchodilator therapy and ventilatory support . 4. Gastrointestinal bleed. Continue on IV Protonix. 5. Anemia. Stable. 6. Coagulopathy. Improved . 7. Transaminitis with hyperbilirubinemia. Slowly improving. GI is following. 8. Thrombocytopenia. Stable. No active bleeding noted. 9. Alcohol abuse. Aware. 10. LV thrombus. Aware. 11. Severe cardiomyopathy. Continue with supportive care. 12. Disposition. The patient is a DNR level 1. He is critically ill with a high risk of mortality. The patient's daughter and immediate family were updated on the patient's condition and all questions were answered. cc: Jeanette Strong MD MTDD
[2019-02-15] MEDS: PROTONIX IV SCH ×3 (00:57→22:17)
[2019-02-15] MEDS: MERREM 1 GM in NS 50 ML IV SCH ×3 (00:57→16:37)
[2019-02-15] MEDS: LANOXIN IV SCH ×2 (03:00→08:46)
[2019-02-15] MEDS: DUONEB (A & A) INH SCH ×6 (03:08→23:39)
[2019-02-15] MEDS: DIPRIVAN 1% 1,000 MG/100 ML BOTTLE IV SCH ×3 (03:36→15:42)
[2019-02-15] MEDS: NEO-SYNEPHRINE 50 MG in NS 250 ML IV SCH (04:49)
[2019-02-15 04:57] LABS: BASO# 0.03 X1000 (0.0-0.2); BASO% 0.4 % (0.0-0.8); EOS# 0.11 X1000 (0.0-0.7); EOS% 1.4 % (0.0-10.0); HEMATOCRIT 33.9 % (42.0-52.0); HEMOGLOBIN 10.7 g/dL (14.0-18.0); IMM GRAN# 0.03 X1000 (0.0-0.04); IMM GRAN% 0.4 % (0.0-0.5); LYMPH# 1.42 X1000 (1.2-3.4); LYMPH% 17.8 % (20.5-51.1); MCH 28.6 PG (27-31); MCHC 31.6 g/dL (33-37); MCV 90.6 FL (81-99); MONO# 1.34 X1000 (0.11-0.59); MONO% 16.8 % (1.7-9.3); MPV 11.8 FL (7.4-10.4); NEUT# 5.03 X1000 (1.4-6.5); NEUT% 63.2 % (42.2-75.2); PLT 70 X1000 (130-400); RBC 3.74 XMIL (4.7-6.1); RDW 17.2 % (11.5-14.5); WBC 7.96 X1000 (4.8-10.8)
[2019-02-15 05:23] LABS: ALLEN TEST YES; BLOOD TYPE ARTERIAL; HCO3-(ACT) 24.9 mmoll (20.0-26.0); METHB 0.9 % (0.0-1.5); O2(CT) 11.8 mL/dL (15.0-23.0); O2HB 96.8 % (95.0-99.0); PCO2(98.6) 40 mmHg (35-45); PO2(98.6) 115 mmHg (60-100); SAMPLE BLOOD; SAO2 99.6 % (95.0-100.0); SRATE 15 BPM; THB 8.5 g/dL (11.5-17.4); TVOL 500 mL
[2019-02-15 05:24] LABS: MODALITY VENTILATOR
[2019-02-15 05:26] LABS: MAGNESIUM 1.8 mg/dL (1.5-2.7); PHOSPHORUS 2.8 mg/dL (2.7-4.5)
[2019-02-15 05:28] LABS: INR 1.52; PROTIME 18.6 Seconds (11.0-16.0)
[2019-02-15 05:42] LABS: AGAP 11; ALB/GLOB RATIO 0.9; ALBUMIN 2.5 g/dL (3.5-5.0); ALKALINE PHOSPHATASE 87 U/L (32-122); BUN 32 mg/dL (8-22); CALCIUM 7.8 mg/dL (8.8-10.2); CHLORIDE 114 mmol/L (98-107); COSMO 303; CREATININE 0.8 mg/dL (0.7-1.2); ESTIMATED GFR > 60; GLUCOSE 139 mg/dL (70-104); GOT 153 U/L (10-34); GPT 286 U/L (10-44); POTASSIUM 4.4 mmol/L (3.5-5.1); SODIUM 148 mmol/L (136-145); TCO2 23 mmol/L (25-35); TOTAL BILIRUBIN 2.51 mg/dL (0.20-1.00); TOTAL PROTEIN 5.2 g/dL (6.3-8.3)
[2019-02-15] MEDS: CLINIMIX E 4.25%-5% SOLUTION 1,000 ML IV SCH ×2 (07:02→12:16)
--- NOTE | 2019-02-15 07:40 | Diag Imaging Result Doc PS360 ---
CHEST-PORTABLE - 02/15/2019 INDICATION: respiratory failure COMPARISON: 02/14/2019 FINDINGS: Support lines and tubes are stable and in good position. Stable severe cardiomegaly. There is worsening opacification of both lower lobes due to any combination of atelectasis, infiltrate or effusion. Stable central pulmonary vascular congestion and probable interstitial pulmonary edema. IMPRESSION: Worsening aeration of both lower lobes. Electronically signed by Artie Lyon 02/15/2019 7:37 AM
--- NOTE | 2019-02-15 07:50 | EKG Report ---
Test Performed on : 02/15/2019 06:44:48 AM Test Reason : tachycardia Blood Pressure : / mmHG Vent. Rate : 077 BPM Atrial Rate : 077 BPM P-R Int : 164 ms QRS Dur : 182 ms QT Int : 402 ms P-R-T Axes : 046 -45 116 degrees QTc Int : 454 ms Sinus rhythm. with premature atrial complexes. Left axis deviation Left bundle branch block Abnormal ECG When compared with ECG of 14-FEB-2019 09:54, (Unconfirmed) Sinus rhythm. has replaced Junctional rhythm. Vent. rate has decreased BY 73 BPM T wave inversion no longer evident in Inferior leads T wave inversion less evident in Lateral leads Confirmed by Zack STOREY, P.J.M ([id number]) on 02/15/2019 3:11:44 PM
--- NOTE | 2019-02-15 08:03 | CARDIOLOGY PROGRESS NOTE ---
DATE: 02/15/2019 CHIEF COMPLAINT: Shortness of breath, respiratory failure. SUBJECTIVE: Mr. Colunga is still intubated, however, his heart rate is much better. He received digoxin and his diltiazem has been discontinued. The patient is still minimally responsive. OBJECTIVE: His vital signs right now, blood pressure off pressors is 116/74, temperature 97.9, pulse 76, respirations 21. He appears to be in sinus rhythm. HEENT: He has an oropharyngeal NG tube. He also has an endotracheal tube. He appears to be somewhat jaundiced and pale. Chest: His chest shows symmetrical breath sounds. Heart: Sounds are regular and rhythm. I do not hear a gallop or murmur. Abdomen: Soft. Extremities: Showed no edema. Neurological exam: He is minimally responsive. His chest x-ray shows worsening aeration of both lower lobes. His blood work shows a hemoglobin of 10.7, platelet count is 70,000. His blood gases on FiO2 of 0.4, pO2 is 115, pCO2 is 40, pH is 7.40. Sodium is 148, potassium 4.4, BUN 32, creatinine 0.8. His ALT is going down from 404 to 286, AST is coming down to 153. His albumin level is 2.5. IMPRESSION: 1. Patient with hypoxemic respiratory failure probably secondary to gram- negative pneumonia. 2. Chronic systolic heart failure idiopathic dilated cardiomyopathy with mild coronary atherosclerosis. 3. Long-term of alcohol and tobacco use. 4. Liver dysfunction [id number]. 5. Episode of Paroxysmal atrial fibrillation in the midst of acute multiorgan dysfunction. 6. Malnutrition. RECOMMENDATIONS: At this time, the patient seems to be doing better. His paroxysmal atrial fibrillation has responded to digoxin and now he is off pressors and off of diltiazem. Probably that was just secondary to the acute metabolic stress from the sepsis. His growing Escherichia coli ESBL positive from the sputum. At this time, we will continue with supportive therapy, which is really the fundamental intervention in this case. We have to improve his nutritional status. Keep his electrolytes within normal range, and we will see how he does. Cardiac-patricio right now he seems to have stabilized. Will continue to follow. cc: Yovanny Urias MD [facility]
[2019-02-15] MEDS: M.V.I.-12 10 ML, FOLIC ACID 1 MG, MAGNESIUM SULFATE 1 GM, THIAMINE 100 MG in NS 1,000 ML IV SCH (08:36)
[2019-02-15] MEDS: ATIVAN IV PRN (10:56)
[2019-02-15] MEDS ORDERED: CATHFLO IV ONE (11:14)
[2019-02-15] MEDS ORDERED: STERILE WATER INJ. INJ ONE (11:14)
[2019-02-15] MEDS: VANCOMYCIN 1,500 MG in NS 250 ML IV SCH (15:18)
--- NOTE | 2019-02-15 18:02 | GASTROENTEROLOGY PROGRESS NOTE ---
DATE: 02/15/2019 SUBJECTIVE: The patient remains intubated. He is currently undergoing weaning trials at the time of my visit. The patient had feedings started yesterday. It is currently on hold for his weaning trials. There has been no reported rectal bleeding over the last several days. OBJECTIVE: Vital signs: Temperature 98 degrees, pulse 80, respirations 36, blood pressure 124/47. LABORATORY DATA: Hematology: WBC 7.96, hemoglobin 10.7, hematocrit 33.9, MCV 90.6, platelets 70,000. Coagulation: Pro time 18.6, INR 1.52. Chemistry: Sodium 148, potassium 4.4, chloride 114, CO2 is 23, BUN 32, creatinine 0.8, glucose 139, calcium 7.8, total bilirubin 2.51, AST 153, ALT 286, alkaline phosphatase 87. ASSESSMENT AND PLAN: 1. Respiratory failure, on mechanical ventilation. Currently undergoing weaning trials. 2. Systolic heart failure/cardiomyopathy, following with Cardiology. 3. Elevated liver function tests are improving. 4. Rectal bleeding seems to have resolved. Hemoglobin and hematocrit are stable. 5. Alcohol and tobacco use. 6. Malnutrition. The patient was started on tube feedings. They are currently on hold during the weaning trials. Rectal bleeding seems to have resolved. Hemoglobin and hematocrit are stable. Gastroenterology will currently sign off. Please consult on-call GI over the holiday weekend if needed. If the patient is still in the hospital, we will follow back on Wednesday. I have discussed this case with Dr. Tobin. Dictated by DANK Mathis for Ron Tobin MD cc: DANK Norwood MD [facility]
--- NOTE | 2019-02-15 20:06 | PROGRESS NOTE ---
DATE: 02/15/2019 SUBJECTIVE: The patient underwent a weaning trial, but did not do well. He is back on propofol. OBJECTIVE: Vital Signs: Temperature 97 degrees, blood pressure 113/63, heart rate 74, respirations 17, and O2 saturation 99% on mechanical ventilator. Intake 1.6 L, output 555. General: This is a chronically ill-appearing male, lying in bed, in no acute distress. Heart: S1 and S2 normal. Regular rate and rhythm. Lungs: Coarse breath sounds bilaterally. Abdomen: Positive bowel sounds. Soft, nontender, nondistended. Extremities: There is 2+ edema in the lower extremities. Neurologic: The patient is currently sedated. LABORATORY DATA: White blood cell count 7.9, hemoglobin 10, hematocrit 33, platelets 70,000. Sodium 148, potassium 4.4, chloride 114, CO2 of 23, BUN 32, creatinine 0.8, glucose 139, albumin 2.5, magnesium 1.8, phosphorus 2.8, AST 153, ALT 286. ASSESSMENT AND PLAN: 1. Acute hypoxemic respiratory failure. Continue with daily weaning trials as directed by the cream gatherer. 2. Pneumonia. Unchanged. Continue on meropenem, bronchodilator therapy and ventilatory support. 3. Bacteremia secondary to Escherichia coli. Continue on meropenem. 4. Gastrointestinal bleed. Stable. Continue on IV Protonix. 5. Transaminitis with hyperbilirubinemia. Slowly improving. Continue with supportive care. 6. Anemia. Stable. 7. Thrombocytopenia. Improved. Continue to monitor closely. 8. Hypernatremia. We will add free water flushes via feeding tube. 9. Nutrition. The patient is on tube feeds. 10. Coagulopathy. Improved. 11. LV thrombus. Aware. 12. Cardiomyopathy. Aware. 13. Disposition. The patient is currently a Do Not Resuscitate level 1. The patient remains critically ill with a high risk of mortality. The patient's daughter and immediate family were updated on the patient's medical condition. cc: MD DANNY Herrera
[2019-02-15] MEDS: ALBUMIN 25% IV SCH (22:27)
[2019-02-16] MEDS: MERREM 1 GM in NS 50 ML IV SCH ×3 (01:14→18:00)
[2019-02-16] MEDS: DIPRIVAN 1% 1,000 MG/100 ML BOTTLE IV SCH ×4 (01:33→20:57)
[2019-02-16] MEDS: DUONEB (A & A) INH SCH ×6 (03:45→22:57)
[2019-02-16 05:09] LABS: ALLEN TEST YES; BLOOD TYPE ARTERIAL; HCO3-(ACT) 24.1 mmoll (20.0-26.0); METHB 1.1 % (0.0-1.5); O2(CT) 15.3 mL/dL (15.0-23.0); O2HB 96.7 % (95.0-99.0); PCO2(98.6) 45 mmHg (35-45); PO2(98.6) 151 mmHg (60-100); SAMPLE BLOOD; SAO2 99.9 % (95.0-100.0); SRATE 15 BPM; TVOL 500 mL; pH(98.6) 7.35 (7.35-7.45)
[2019-02-16 05:10] LABS: MODALITY VENTILATOR
[2019-02-16 06:03] LABS: INR 1.34; PROTIME 16.8 Seconds (11.0-16.0)
[2019-02-16 06:10] LABS: AGAP 12; ALBUMIN 2.5 g/dL (3.5-5.0); ALKALINE PHOSPHATASE 83 U/L (32-122); BUN 27 mg/dL (8-22); CALCIUM 8.1 mg/dL (8.8-10.2); CHLORIDE 117 mmol/L (98-107); COSMO 299; CREATININE 0.6 mg/dL (0.7-1.2); ESTIMATED GFR > 60; GLUCOSE 127 mg/dL (70-104); GOT 84 U/L (10-34); GPT 179 U/L (10-44); POTASSIUM 4.7 mmol/L (3.5-5.1); SODIUM 147 mmol/L (136-145); TCO2 18 mmol/L (25-35); TOTAL BILIRUBIN 2.05 mg/dL (0.20-1.00); TOTAL PROTEIN 5.1 g/dL (6.3-8.3)
--- NOTE | 2019-02-16 07:14 | Diag Imaging Result Doc PS360 ---
EXAM: CHEST-PORTABLE HISTORY: respiratory failure TECHNIQUE: Single view COMPARISON: 02/15/2019 FINDINGS: No change in the endotracheal tube, the nasogastric tube, or the left sided PICC line. The heart remains enlarged. The small pleural effusions. Mild pulmonary edema. There is basilar atelectasis and there may be underlying infiltrates. IMPRESSION: No interval improvement. Electronically signed by Charbel Green 02/16/2019 7:12 AM
[2019-02-16] MEDS ORDERED: LASIX IV ONE (08:00)
[2019-02-16] MEDS: ALBUMIN 25% IV SCH (08:38)
[2019-02-16] MEDS: CLINIMIX E 4.25%-5% SOLUTION 1,000 ML IV SCH (08:39)
--- NOTE | 2019-02-16 09:21 | PROVIDER PROGRESS NOTE ---
Progress Note Pulmonary additional note: I had a discussion with patient's daughter yesterday and she understands the nursing home dread prognosis given severe cardiomyopathy and co-morbidities. She is considering comfort care and terminal extubation. She understood the nature of this course of action and questions were answered.
[2019-02-16] MEDS ORDERED: STERILE WATER INJ. INJ ONE ×2 (11:21→14:23)
[2019-02-16] MEDS ORDERED: CATHFLO IV ONE ×2 (11:21→14:23)
[2019-02-16 11:28] LABS: BASO# 0.06 X1000 (0.0-0.2); BASO% 0.9 % (0.0-0.8); EOS% 3.1 % (0.0-10.0); HEMATOCRIT 34.6 % (42.0-52.0); HEMOGLOBIN 10.7 g/dL (14.0-18.0); IMM GRAN# 0.05 X1000 (0.0-0.04); IMM GRAN% 0.8 % (0.0-0.5); LYMPH# 1.26 X1000 (1.2-3.4); LYMPH% 19.8 % (20.5-51.1); MCH 28.5 PG (27-31); MCHC 30.9 g/dL (33-37); MCV 92.3 FL (81-99); MONO# 1.01 X1000 (0.11-0.59); MONO% 15.9 % (1.7-9.3); MPV 11.6 FL (7.4-10.4); NEUT# 3.79 X1000 (1.4-6.5); NEUT% 59.5 % (42.2-75.2); PLT 81 X1000 (130-400); RBC 3.75 XMIL (4.7-6.1); RDW 18.1 % (11.5-14.5); WBC 6.37 X1000 (4.8-10.8)
[2019-02-16 11:36] LABS: LYMPHS 24 % (21-51); SEGS 76 % (42-75)
--- NOTE | 2019-02-16 12:07 | PROGRESS NOTE ---
DATE: 02/16/2019 INTERVAL HISTORY: No acute events overnight. Mr. Colunga failed spontaneous breathing trial yesterday. Input and output suggests he has had liquid bowel movements, brown, without any blood. SUBJECTIVE: He is intubated and is sedated. His vitals otherwise were overnight unremarkable. His CBC was not drawn, which I have ordered. He has not been on any phenylephrine at the moment. OBJECTIVE: Vital Signs: Temperature of 96.4 degrees, his pulse is 94, respiratory rate 15, blood pressure 130/85, he is saturating 97% on mechanical ventilator. Lungs: Air entry bilaterally equal. No wheeze, rhonchi, crackles. Cardiovascular: S1, S2 normal. No murmur, rub, or gallop. He does have heaving apex impulse. Abdomen: Soft, nontender. Active bowel sounds. He has generalized anasarca. He has a urine catheter, endotracheal tube, and OG tube. LABORATORY DATA: Suggestive of stable hemoglobin, improving platelet count. He does have elevated INR. ABG is unremarkable. He does have hyponatremia, hyperchloremia. He continues to have high proBNP. MICROBIOLOGY: No positive data. The blood culture has not shown any growth. IMAGING: Chest x-ray today suggests no interval improvement. ASSESSMENT AND PLAN: 1. Acute hypoxic respiratory failure and sepsis due to bilateral lower lobe pneumonia and acute encephalopathy. Continue mechanical ventilation, spontaneous breathing trial, and propofol sedation as per Pulmonology recommendation. Continue intravenous Protonix for stress ulcer prophylaxis, and mechanical deep venous thrombosis for prophylaxis. 2. Acute encephalopathy on presentation due to sepsis, hypoglycemia, metabolic derangement, and CT scan showing encephalomalacia in the left occipital lobe, consistent with chronic infarction. Echocardiogram had left ventricular thrombus. Carotid ultrasound report had minimal atherosclerotic disease, without evidence of hemodynamically significant lesions. I will continue to monitor his mental status. In the future, he may need repeat head CT if his mental status does not improve. 3. Sepsis due to extended spectrum beta-lactamase Escherichia coli, likely originated from pneumonia, now cleared. Continue intravenous meropenem and intravenous vancomycin. 4. Gastrointestinal bleed. Currently stable. His platelet count is improving. Continue intravenous Protonix. 5. Left ventricular thrombus with alcoholic cardiomyopathy. He does have mild coagulopathy, and he continues to have thrombocytopenia, which is improving. My goal is to start him on therapeutic anticoagulation based on future goals of care once his platelet count is more than 100,000 consistently. He has not had any bloody bowel movement recently. I will start him on prophylactic dose to avoid DVT/PE. 6. Alcohol use disorder contributing to alcoholic cardiomyopathy, transaminitis, and thrombocytopenia. Slowly improving. I will continue to give him intravenous thiamine and nutrition. 7. Disposition. His condition is critical because of alcoholic cardiomyopathy and need for mechanical ventilation. I will continue to manage him inside intensive care unit. TIME SPENT: More than 30 minutes of critical care time were spent taking care of this patient. I had an extensive discussion about his plan of care with the patient's daughter at bedside. All of her questions have been satisfactorily answered. She is considering comfort measures in next 24 hours or so if his clinical condition doesn't improve. I informed her that Mr. Colunga's labs are looking better. However, he has extremely poor cardiac function. On top of that, he also has LV thrombus. She understood it and would have a final decision about further goals of care made in next 24 hours. cc: Daniel Mcdaniel MD MTDD
[2019-02-16] MEDS ORDERED: LOVENOX SUBQ SCH (16:00)
[2019-02-16] MEDS ORDERED: NEXIUM PACKET PO SCH (17:10)
[2019-02-16] MEDS: VITAMIN B-1 GT SCH (18:00)
[2019-02-16] MEDS: VANCOMYCIN 1,500 MG in NS 250 ML IV SCH (18:40)
[2019-02-16] MEDS ORDERED: CARDIZEM 100 MG/NS 100 MG/100 ML IVPB IV SCH (19:30)
[2019-02-16] MEDS: NEXIUM PACKET GT SCH (20:58)
[2019-02-17] MEDS: MERREM 1 GM in NS 50 ML IV SCH ×2 (00:57→09:19)
[2019-02-17] MEDS: DUONEB (A & A) INH SCH ×4 (03:17→17:01)
[2019-02-17] MEDS: DIPRIVAN 1% 1,000 MG/100 ML BOTTLE IV SCH ×2 (03:41→11:29)
[2019-02-17 04:34] LABS: ALLEN TEST YES; BE 2.9 mmoll (-3.0-3.0); BLOOD TYPE ARTERIAL; HCO3-(ACT) 27.2 mmoll (20.0-26.0); METHB 0.7 % (0.0-1.5); O2(CT) 14.7 mL/dL (15.0-23.0); O2HB 96.7 % (95.0-99.0); PCO2(98.6) 39 mmHg (35-45); PO2(98.6) 112 mmHg (60-100); SAMPLE BLOOD; SAO2 99.8 % (95.0-100.0); SRATE 15 BPM; THB 10.7 g/dL (11.5-17.4); TVOL 500 mL; pH(98.6) 7.45 (7.35-7.45)
[2019-02-17 04:35] LABS: MODALITY VENTILATOR
--- NOTE | 2019-02-17 07:22 | Diag Imaging Result Doc PS360 ---
EXAM: CHEST-PORTABLE HISTORY: respiratory failure TECHNIQUE: Single view COMPARISON: 02/16/2019 FINDINGS: No change in the endotracheal tube, the nasogastric tube, or the left-sided PICC line. The heart is enlarged. There are small pleural effusions. There are lower lung infiltrates and atelectasis. IMPRESSION: No interval improvement Electronically signed by Charbel Green 02/17/2019 7:19 AM
[2019-02-17 07:30] LABS: INR 1.23; PROTIME 15.7 Seconds (11.0-16.0)
--- NOTE | 2019-02-17 07:57 | EKG Report ---
Test Performed on : 02/17/2019 03:40:08 AM Test Reason : TACHY Blood Pressure : / mmHG Vent. Rate : 140 BPM Atrial Rate : 131 BPM P-R Int : 000 ms QRS Dur : 178 ms QT Int : 342 ms P-R-T Axes : 000 -41 115 degrees QTc Int : 522 ms Atrial fibrillation. with rapid ventricular response. Left axis deviation Left bundle branch block Abnormal ECG When compared with ECG of 15-FEB-2019 06:44, Atrial fibrillation. has replaced Sinus rhythm. Vent. rate has increased BY 63 BPM T wave inversion less evident in Lateral leads Confirmed by Zack STOREY, P.J.M ([id number]) on 02/17/2019 2:58:20 PM
[2019-02-17 08:21] LABS: BASO# 0.09 X1000 (0.0-0.2); BASO% 1.4 % (0.0-0.8); EOS# 0.09 X1000 (0.0-0.7); EOS% 1.4 % (0.0-10.0); HEMATOCRIT 33.9 % (42.0-52.0); HEMOGLOBIN 10.5 g/dL (14.0-18.0); IMM GRAN# 0.05 X1000 (0.0-0.04); IMM GRAN% 0.8 % (0.0-0.5); LYMPH# 1.82 X1000 (1.2-3.4); LYMPH% 28.9 % (20.5-51.1); MCH 28.4 PG (27-31); MCV 91.6 FL (81-99); MONO# 0.85 X1000 (0.11-0.59); MONO% 13.5 % (1.7-9.3); MPV 12.4 FL (7.4-10.4); NEUT# 3.39 X1000 (1.4-6.5); PLT 97 X1000 (130-400); RDW 18.5 % (11.5-14.5); WBC 6.29 X1000 (4.8-10.8)
[2019-02-17 08:37] LABS: AGAP 16; ALB/GLOB RATIO 1.2; ALBUMIN 3.1 g/dL (3.5-5.0); ALKALINE PHOSPHATASE 91 U/L (32-122); BUN 26 mg/dL (8-22); CALCIUM 8.5 mg/dL (8.8-10.2); CHLORIDE 114 mmol/L (98-107); COSMO 309; CREATININE 0.8 mg/dL (0.7-1.2); ESTIMATED GFR > 60; GLUCOSE 108 mg/dL (70-104); GOT 76 U/L (10-34); GPT 146 U/L (10-44); POTASSIUM 4.6 mmol/L (3.5-5.1); SODIUM 153 mmol/L (136-145); TCO2 23 mmol/L (25-35); TOTAL BILIRUBIN 2.22 mg/dL (0.20-1.00); TOTAL PROTEIN 5.7 g/dL (6.3-8.3)
[2019-02-17] MEDS: ALBUMIN 25% IV SCH (09:18)
[2019-02-17] MEDS: VITAMIN B-1 GT SCH (09:19)
[2019-02-17] MEDS: NEXIUM PACKET GT SCH (09:19)
[2019-02-17 09:24] LABS: LYMPHS 6 % (21-51); SEGS 94 % (42-75)
[2019-02-17] MEDS ORDERED: D5W 1,000 ML IV SCH (10:00)
[2019-02-17] MEDS: ATIVAN IV PRN ×4 (12:09→20:26)
[2019-02-17] MEDS: VANCOMYCIN 1,500 MG in NS 250 ML IV SCH (15:45)
[2019-02-17] MEDS: MORPHINE IV PRN ×4 (15:50→21:28)
[2019-02-17] MEDS ORDERED: TRANSDERM-SCOP TD SCH (17:30)
--- NOTE | 2019-02-17 18:17 | PROGRESS NOTE ---
DATE: 02/17/2019 SUBJECTIVE: The patient remains unresponsive on the ventilator. The patient's daughter has decided to make the patient comfort measures only and to do a terminal weaning. OBJECTIVE: Vital Signs: Temperature 98.9 degrees, blood pressure 112/61, heart rate 101, respirations 22, O2 saturation 98% on mechanical ventilator. General: This is a chronically-ill- appearing elderly male currently sedated on the ventilator. Head: Normocephalic atraumatic. Heart: S1, S2 normal. Tachycardic. Lungs: Coarse breath sounds bilaterally. Abdomen: Hypoactive bowel sounds. Extremities: 2+ edema in the lower extremities. Neurologic: The patient is sedated. ASSESSMENT: 1. Acute hypoxemic respiratory failure. 2. Pneumonia. 3. Bacteremia secondary to Escherichia coli. 4. Gastrointestinal bleed. 5. Transaminitis with hyperbilirubinemia. 6. Anemia. 7. Thrombocytopenia. 8. Hypernatremia. 9. Coagulopathy. 10. Left ventricular thrombus. 11. Cardiomyopathy. PLAN: I had a discussion with the patient's daughter and she has decided to make the patient comfort measures only. She wants the patient extubated. The patient will be made comfort measures. The patient will be extubated this afternoon and transferred to a private room. cc: Jeanette Strong MD MTDD
[2019-02-18] MEDS: MORPHINE IV PRN ×6 (01:22→09:01)
[2019-02-18] MEDS: ATIVAN IV PRN ×3 (01:23→07:43)
[2019-02-18 08:27] VITALS: BP 112/69
[2019-02-18] MEDS ORDERED: MORPHINE PCA IV PRN (09:46)
[2019-02-18] MEDS ORDERED: NS 1,000 ML ONE (10:03)
--- NOTE | 2019-02-28 17:26 | DISCHARGE SUMMARY ---
ADMISSION DATE: 02/10/2019 DISCHARGE DATE: 02/18/2019 FINAL DISCHARGE DIAGNOSES: 1. Acute hypoxemic respiratory failure. 2. Bilateral lower lobe pneumonia. 3. Bacteremia secondary to Escherichia coli. 4. Gastrointestinal bleed. 5. Transaminitis with hyperbilirubinemia. 6. Anemia. 7. Thrombocytopenia. 8. Hypernatremia. 9. Left ventricular thrombus. 10. Coagulopathy. 11. Paroxysmal atrial fibrillation. 12. Tobacco abuse. 13. Alcohol abuse. 14. Idiopathic dilated cardiomyopathy. 15. Chronic systolic congestive heart failure. CONSULTATIONS: 1. Pulmonary consultation with Dr. Lira. 2. Cardiology consultation with Dr. Urias. 3. Gastrointestinal consultation with Dr. Tobin. HOSPITAL COURSE: Mr. Colunga is a 58-year-old male with a history of multiple medical problems who presented to the ER unresponsive. The patient was noted to be septic. Blood cultures and sputum cultures were obtained, and the patient was started on broad-spectrum antibiotics. The patient was noted to have severe bilateral lower lobe pneumonia. The patient's respiratory status worsened and he was ultimately intubated and placed on the ventilator. Pulmonary medicine, cardiology, and GI were consulted. The patient was noted to have dark tarry stools, and as a result, GI was consulted. Also, the patient's LFTs were elevated. The patient had an echocardiogram done on 02/12/2019 that revealed moderate to severe biatrial enlargement and an ejection fraction of 10% with a thrombus in the inferior lateral wall. The patient was also treated with broad-spectrum antibiotics over the course of the hospitalization. Ultimately, the blood cultures grew out Escherichia coli, which was sensitive to the current antibiotics that the patient was receiving. The patient was treated aggressively throughout the hospitalization. However, the patient's clinical status continued to worsen. This was discussed with the patient's daughter and extended family. Palliative Care was also consulted for assistance with goals of care. Ultimately, the patient's family decided to make the patient a DNR level 1 and to have the patient extubated and kept comfortable only. This was performed on 02/17/2019. The patient was transferred to a private room on the medical floor. On 02/18/2019 at 11 a.m., the patient was pronounced . The patient's family members were notified of the patient's . cc: Jeanette Strong MD
== END 2019-02-18 11:00 | disposition expired | DRG 870 ==
LOC: ED 18:16 → ICU 22:32 → SUATTDRO 22:32 → 3N 02-17 21:20
PROVIDERS: ATTEND Internal Medicine